=== PATIENT | male | born 1955 | race Caucasian/White ===

== ENCOUNTER 2017-07-31 09:07 | Outpatient (CLI) | payer OTHER ==
--- NOTE | 2017-07-31 11:10 | CT ---
CT CHEST WITHOUT CONTRAST: Comparison: 05-04-16, 11-03-16, 05-27-17; CT abdomen/pelvis 11-27-15 History: Left lung nodule. History of colon cancer. Technique: Multiple contiguous axial images were obtained in a CT of the chest without contrast. Cor onal reformats were performed. FINDINGS: There is an enlarging mass in the left lower lobe measuring 4.2 x 4.5 x 5.0 cm in size. There is an area of soft tissue density extending from the medial aspect of the mass towards the hilar region. T here is also an enlarging mass in the medial aspect of the right lower lobe measuring 3.2 x 3.9 x 3. 6 cm in size. Two new masses are seen in the right lower lobe. The largest measures 1.1 cm in size. No pleural effusion is present. The heart is normal in size. No obvious hilar or mediastinal lymphadenopathy are appreciated. Evalua tion is limited without IV contrast. The visualized subdiaphragmatic structures are unremarkable. Degenerative changes are seen in the sp ine. The patient has a tracheostomy. The chest wall soft tissues are unremarkable. IMPRESSION: Increasing size and number of pulmonary masses. This is evidence for metastatic disease. A PET CT co uld be performed to evaluate for a hypermetabolic activity of the masses. POS: JOHNATHAN
== END 2017-07-31 09:08 | disposition home or self-care (01) ==
LOC: CT 09:07
PROVIDERS: ATTEND Internal Medicine Critical Care Medicine
DX: R91.1 Solitary pulmonary nodule (principal); C78.02 Secondary malignant neoplasm of left lung
CPT/HCPCS: 71250

== ENCOUNTER 2017-08-13 10:15 | Outpatient (CLI) | payer OTHER ==
--- NOTE | 2017-08-13 17:11 | PET ---
PET CT FROM SKULL TO MID THIGH 08/13/17 INDICATION: History of colon cancer with multiple pulmonary nodules, concern for metastatic disease. RADIOPHARMACEUTICAL: 2.81 millicuries of F18 FDG IV. TECHNIQUE: Multiple PET CT images were obtained from the skull base to the mid thighs following IV administrati on of the radiopharmaceutical. CT images were obtained for attenuation correction purposes only. COMPARISON: Prior CT of the chest dated 07/31/[address] evaluation dated 12/09/12. FINDINGS: There is some mild increased FDG activity seen within the posterior aspects of the false vocal cord likely related to phonation. There is a tracheostomy tube in place. No definite hypermetabolic lymph adenopathy or soft tissue masses demonstrated. There is a hypermetabolic mass within the medial right lower lobe with a peak uptake of 19.5 and anurag n uptake of 15.9. There are small approximately 1 cm pulmonary nodules within the right lower lobe with misregistered mild uptake. One is seen measuring 1.3 cm on image 122 with a peak uptake of 2.9 and mean uptake of 1.79. An additional 1.1 cm nodule is seen within the superior segment of the righ t lower lobe with a peak uptake of 2.53 and a mean uptake of 1.71 An additional hypermetabolic mass seen within the left lower lobe measuring 4 cm with peak uptake of 12.98 and a mean uptake of 10.7. . There are smaller subcentimeter pulmonary nodules that likely have some mild associated hypermetab olic uptake within the posterior left lower lobe; however, these are below PET resolution threshold. No definite hypermetabolic mass or lymphadenopathy is evident within the abdomen or pelvis. There is an IVC filter in place. There is postsurgical change of a partial colectomy. The previously seen fl uid collection involving the anterior abdominal wall is no longer present. 5 cm nonhypermetabolic carmichael bcutaneous cyst overlying the lower midline back is stable likely reflecting a sebaceous cyst. No hypermetabolic skin or osseous lesion is evident. IMPRESSION: 1. Hypermetabolic pulmonary nodules and masses suspicious for metastatic disease. 2. No overt evidence of hypermetabolic metastatic disease within the abdomen or pelvis. 3. Mild area of increased hypermetabolic activity involving the vocal cords likely related to p honation. 4. Other chronic findings as above. POS: [facility]
== END 2017-08-13 10:16 | disposition home or self-care (01) ==
LOC: PET 10:15
PROVIDERS: ATTEND Internal Medicine Critical Care Medicine
DX: R91.1 Solitary pulmonary nodule (principal); R91.8 Other nonspecific abnormal finding of lung field; I82.409 Acute embolism and thrombosis of unspecified deep veins of unspecified lower extremity
CPT/HCPCS: 78815; A9552

== ENCOUNTER 2017-10-21 16:26 | Inpatient (IN) | payer OTHER ==
[2017-10-21 17:06] LABS: #Eosinphils 0.1 thou/uL (0.0-0.7); #Lymphocytes 1.1 thou/uL (1.20-3.40); #Neutrophils 11.2 thou/uL (1.40-6.50); %Basophils 0.2 % (0.0-1.0); %Eosinophils 0.7 % (0.0-10.0); %Lymphocytes 8.5 % (21.0-51.0); %Monocytes 7.4 % (0.0-10.0); %Neutrophils 83.2 % (42.0-75.0); Hemoglobin 12.9 g/dL (14.0-18.0); Mean Corpuscular HGB CONC 30.1 g/dL (32.0-36.0); Mean Corpuscular Hemoglobin 28.1 pg (27.0-31.0); Mean Corpuscular Volume 93.6 fl (80.0-94.0); Mean Platelet Volume 8.4 fL (7.4-10.4); Platelet Count 191 thou/uL (130-400); RBC Distribution Width 14.3 % (11.5-14.5); Red Blood Cell (RBC) Count 4.57 mill/uL (4.70-6.10); White Blood Cell (WBC) Count 13.4 thou/uL (4.8-10.8)
[2017-10-21] MEDS ORDERED: methylPREDNISolone Sod Succ/PF 125 MG/2 ML VIAL ONE (17:13)
[2017-10-21] MEDS ORDERED: Water For Inject, Bacteriostat 30 ML ONE (17:13)
[2017-10-21] MEDS ORDERED: Piperacillin/Tazobactam 4.5 GM in Sodium Chloride 0.9% 100 ML IVPB ONE (17:15)
[2017-10-21 17:29] LABS: ALT (SGPT) 14 U/L (8-55); AST (SGOT) 14 U/L (5-34); Albumin 3.9 g/dL (3.4-4.8); Alkaline Phosphatase 73 U/L (40-150); Anion Gap 13 mmol/L (10-20); BUN (Urea Nitrogen) 24 mg/dL (8.4-25.7); Bilirubin, Total 0.4 mg/dL (0.2-1.2); CK (CPK) 72 U/L (30-200); CKMB 5.7 ng/mL (0-6.6); Calc. Creatinine Clearance 0 mL/min (70-130); Calcium 9.4 mg/dL (7.8-10.44); Carbon Dioxide 36 mmol/L (23-31); Chloride 96 mmol/L (98-107); Estimated GFR-MDRD 48; Globulin 3.8 g/dL (2.4-3.5); Glucose 125 mg/dL (80-115); Potassium 4.9 mmol/L (3.5-5.1); Protein, Total 7.7 g/dL (5.8-8.1); Sodium 140 mmol/L (136-145); Troponin I 0.017 ng/mL (< 0.028)
[2017-10-21] MEDS ORDERED: Acetaminophen 325 MG TAB PO PRN (17:44)
[2017-10-21] MEDS ORDERED: Guaifenesin DM 100-10/5 ML UDCUP PO PRN (17:44)
[2017-10-21] MEDS ORDERED: Dextrose 5% in Water 1,000 ML IV PRN (17:44)
[2017-10-21] MEDS ORDERED: ALPRAZolam 0.25 MG TAB PO PRN (17:44)
[2017-10-21] MEDS ORDERED: Dextrose 50% Abboject 50 ML SYRINGE SLOW IVP PRN (17:44)
[2017-10-21] MEDS ORDERED: HumaLOG 300 UNITS/3 ML VIAL SC PRN (17:44)
--- NOTE | 2017-10-21 19:11 | RAD ---
RADIOGRAPH CHEST 1 VIEW: Date: 10-21-2017 Time: 4:47 p.m. HISTORY: 62-year-old male with productive cough and hypoxemia. COMPARISON: 05-28-17 FINDINGS: Distal tip of the tracheostomy tube is 9 cm superior to the diego, at the level of the clavicular he ads, similar to prior study. Magnification of the cardiac shadow due to body habitus. Diffuse bilater al mild, centrally dominant interstitial densities appear mildly worse than on the prior study. These could represent pulmonary interstitial edema. Poor visualization of the retrocardiac portion of the left lower lobe because of body habitus. There may or may not be a consolidation in that location. Th is appearance is similar to the previous radiograph. The mass in the left lower lobe demonstrated on the CT of 07-31-17 is difficult to appreciate, because of the surrounding increased left lower lobe d ensities. There is no pneumothorax. IMPRESSION: 1. Tracheostomy tube. 2. Questionable bilateral pulmonary interstitial edema. 3. Questionable left lower lobe pneumonia. TONG POS: JOHNATHAN
[2017-10-21 21:25] LABS: Troponin I 0.017 ng/mL (< 0.028)
--- NOTE | 2017-10-21 22:52 | HP ---
REASON FOR ADMISSION: COPD exacerbation, CHF exacerbation, acute respiratory failure with hypoxia. HISTORY OF PRESENTING ILLNESS: The patient gives history of having cough with expectoration of yellow sputum from last 2 days. He has been short of breath from last 1 week and has been progressively getting worse. He has felt hot at his correction. He states he has taken his flu shot for this year. The patient has chronic tracheostomy. He states he ambulates at the correction. He normally is on trach collar on a p.r.n. basis at the correction per patient. Per correction records, he is on 3 L nasal cannula. There was also an order for trach collar with oxygen on the ER records. On arrival, the patient's saturations dropped to 70% and had to be put on BiPAP. He is currently 91% on BiPAP. PAST MEDICAL AND SURGICAL HISTORY: Chronic respiratory failure with tracheostomy, COPD, obstructive sleep apnea on CPAP at night, left lower lobe lung mass with history of colon cancer with suspected metastasis, hypertension, dyslipidemia, history of PE, GERD, depression, prior bronchoscopy, prior history of PEG tube with removal, prior history of femoral artery laceration status post repair, history of exploratory laparotomy. PERSONAL HISTORY: The patient states he quit smoking 3 years ago. He is currently a resident of [facility]. Does not abuse alcohol or drugs. FAMILY HISTORY: There is no history of lung disease in the family. He is retired from the [employer]. The patient is apparently adopted. CURRENT MEDICATIONS: Per correction records, the patient is on aspirin 81 mg p.o. daily, budesonide nebulizer, Claritin 10 mg daily, Colace 100 mg twice daily, DuoNeb q.4 hourly, Flonase nasal spray, Klonopin 0.5 mg p.o. at bedtime, Lasix 40 mg p.o. twice daily, MiraLax 17 g 2 times daily, Mucinex 600 mg 4 times daily, Neurontin 100 mg 3 times daily, potassium chloride extended release 20 mEq p.o. daily, prednisone 10 mg daily, Spiriva inhaler 18 mcg daily , trazodone 50 mg p.o. at bedtime, Zantac 150 mg twice daily. REVIEW OF SYSTEMS: The following complete review of systems was negative, unless otherwise mentioned in the HPI or below: Constitutional: Weight loss or gain, ability to conduct usual activities. Skin: Rash, itching. Eyes: Double vision, pain. ENT/Mouth: Nose bleeding, neck stiffness, pain, tenderness. Cardiovascular: Palpitations, dyspnea on exertion, orthopnea. Respiratory: Shortness of breath, wheezing, cough, hemoptysis, fever or night sweats. Gastrointestinal: Poor appetite, abdominal pain, heartburn, nausea, vomiting, constipation, or diarrhea. Genitourinary: Urgency, frequency, dysuria, nocturia. Musculoskeletal: Pain, swelling. Neurologic/Psychiatric: Anxiety, depression. Allergy/Immunologic: Skin rash, bleeding tendency. PHYSICAL EXAMINATION: GENERAL: The patient is a 62-year-old male, who is currently on BiPAP. VITAL SIGNS: Blood pressure 134/78, pulse 120 per minute, respiratory rate 28 per minute, temperature 100.1 degrees Fahrenheit, saturating 91% on BiPAP and was 64% on room air. NECK: Supple, no elevated JVD. The patient has tracheostomy. HEENT: Extraocular muscles intact. Pupils reacting to light. Oral cavity, mucous membranes are dry. No exudates or congestion. CARDIOVASCULAR SYSTEM: S1, S2 heard. RESPIRATORY SYSTEM: Air entry 1+ bilateral. Scattered wheezes plus bilateral, rhonchi plus bilateral. There are rales plus in the infra-axillary area. ABDOMEN: Soft, bowel sounds heard. No tenderness, rigidity or guarding. EXTREMITIES: There is 1+ peripheral edema, no calf tenderness. VASCULAR SYSTEM: Peripheral pulses 1+ bilateral. No ischemic ulcerations or gangrene. CENTRAL NERVOUS SYSTEM: No gross focal deficit seen. The patient is lethargic , but oriented well. PSYCHIATRIC SYSTEM: The patient's mood is euthymic. No hallucinations or delusions. LABORATORY AND X-RAY FINDINGS: White count of 13, H and H 12 and 42, platelet count is 191 with 83% neutrophils, MCV is 93. Serum bicarbonate 36, BUN 24, creatinine 1.4, serum glucose 125. Liver enzymes are within normal limits. Albumin is 3.9. Troponin I 0.01. Influenza A and B antigens nasal swab is negative. Chest x-ray by my review shows mild pulmonary vascular congestion. CLINICAL IMPRESSION AND PLAN: Patient will be admitted to [facility] for acute on chronic respiratory failure, acute congestive heart failure exacerbation, acute obstructive pulmonary disease exacerbation. He is currently saturating 91%-92% on BiPAP and will continue the same. We will consult Pulmonology. The patient normally sees Dr. Bellamy. The patient is oxygen and steroid dependent. We will place him on Solu-Medrol 40 mg IV q.6 hourly, Levaquin, empiric antibiotics, and DuoNeb q.6 hourly. and q.4 hourly p.r.n. We will also place him on Lasix 40 mg IV q.12 hourly. We will continue some of his home medications including aspirin, Xanax, citalopram, Klonopin, trazodone, Flonase nasal spray, gabapentin , Mucinex as before. He will be on a small dose of Coreg 3.125 mg twice daily. We will obtain an echo with 2D Doppler for left ventricular function. We will continue to closely monitor him in [facility]. Please note I have discussed code status with him. The patient had an out of hospital DNR, which he signed in 01/2016, but has revoked it now. He states he wants to live. Please note the patient has a PET scan done in 07/2017, which shows likely hypermetabolic masses with metastatic disease in the lungs. He has history of colon cancer with prior surgery for the same. [facility]
[2017-10-21 23:53] LABS: Troponin I 0.014 ng/mL (< 0.028)
[2017-10-22] MEDS: Carvedilol 3.125 MG TAB PO SCH ×3 (00:56→20:29)
[2017-10-22] MEDS: Gabapentin 100 MG CAP PO SCH ×4 (00:56→20:30)
[2017-10-22] MEDS: clonazePAM 0.5 MG TAB PO SCH ×2 (00:56→20:29)
[2017-10-22] MEDS: Docusate 100 MG CAP PO SCH ×3 (00:56→20:29)
[2017-10-22] MEDS: guaiFENesin ER 600 MG TAB PO SCH ×6 (00:56→23:31)
[2017-10-22] MEDS: Famotidine 20 MG TAB PO SCH ×3 (00:56→20:29)
[2017-10-22] MEDS: Fluticasone Propionate Nasal Spray 16 gm Bottle NASAL SCH ×3 (00:56→20:29)
[2017-10-22] MEDS: traZODone HCl 50 MG TAB PO SCH ×2 (00:56→20:28)
[2017-10-22 01:15] VITALS: BMI 36.1
[2017-10-22 04:49] LABS: #Lymphocytes 0.7 thou/uL (1.20-3.40); #Monocytes 0.4 thou/uL (0.11-0.59); #Neutrophils 11.3 thou/uL (1.40-6.50); %Basophils 0.1 % (0.0-1.0); %Eosinophils 0.4 % (0.0-10.0); %Lymphocytes 5.6 % (21.0-51.0); %Monocytes 2.8 % (0.0-10.0); %Neutrophils 91.1 % (42.0-75.0); Hemoglobin 12.9 g/dL (14.0-18.0); Mean Corpuscular HGB CONC 31.2 g/dL (32.0-36.0); Mean Corpuscular Volume 92.7 fl (80.0-94.0); Platelet Count 177 thou/uL (130-400); RBC Distribution Width 14.4 % (11.5-14.5); Red Blood Cell (RBC) Count 4.44 mill/uL (4.70-6.10); White Blood Cell (WBC) Count 12.4 thou/uL (4.8-10.8)
[2017-10-22 04:55] LABS: Anion Gap 12 mmol/L (10-20); BUN (Urea Nitrogen) 24 mg/dL (8.4-25.7); Calc. Creatinine Clearance 152 mL/min (70-130); Calcium 9.3 mg/dL (7.8-10.44); Carbon Dioxide 36 mmol/L (23-31); Chloride 96 mmol/L (98-107); Estimated GFR-MDRD 83; Glucose 140 mg/dL (80-115); Potassium 4.6 mmol/L (3.5-5.1); Sodium 139 mmol/L (136-145)
[2017-10-22] MEDS: Furosemide 40 MG/4 ML VIAL SLOW IVP SCH ×2 (06:11→14:29)
[2017-10-22] MEDS: Enoxaparin Sodium 40 MG/0.4 ML SYRINGE SC SCH (08:03)
[2017-10-22] MEDS: Potassium Chloride 20 MEQ TAB PO SCH (08:03)
[2017-10-22] MEDS: Citalopram 20 MG TAB PO SCH (08:04)
--- NOTE | 2017-10-22 12:41 | PDOC.PN ---
- Subjective Encounter Start Date: 10/22/17 Encounter Start Time: 11:30 Subjective: is off bipap, on ventimask -: uses speaking valve to talk -: no sob or chest pain, feels better - Objective Resuscitation Status: Resuscitation Status FULL:Full Resuscitation MAR Reviewed: Yes Vital Signs & Weight: Vital Signs (12 hours) Temp Pulse Resp BP Pulse Ox 10/22/17 08:26 91 L 10/22/17 08:23 87 21 H 92 L 10/22/17 08:00 97.8 F 86 24 H 135/83 86 L 10/22/17 06:07 85 22 H 143/79 H 95 10/22/17 04:11 97.1 F L 90 24 H 149/73 H 97 10/22/17 02:10 97 24 H 124/76 91 L 10/22/17 01:45 104 H 24 H 83 L 10/22/17 00:47 87 L 10/22/17 00:45 100 24 H 85 L Weight Weight 283 lb 6 oz I&O: 10/21/17 10/22/17 10/23/17 06:59 06:59 06:59 Intake Total 270 Balance 270 Result Diagrams: 10/22/17 04:08 10/22/17 04:08 Additional Labs: Accuchecks 10/22/17 11:39 POC Glucose 129 H Phys Exam - Physical Examination HEENT: PERRLA, moist MMs Neck: no JVD trach+ Respiratory: no wheezing, no rales rhonchi+ Cardiovascular: RRR, no significant murmur Gastrointestinal: soft, non-tender, positive bowel sounds Musculoskeletal: no edema, pulses present Neurological: non-focal, moves all 4 limbs Psychiatric: A&O x 3 Dx/Plan (1) Acute on chronic respiratory failure with hypoxia and hypercapnia Code(s): J96.21 - ACUTE AND CHRONIC RESPIRATORY FAILURE WITH HYPOXIA; J96.22 - ACUTE AND CHRONIC RESPIRATORY FAILURE WITH HYPERCAPNIA Status: Resolved (2) COPD exacerbation Code(s): J44.1 - CHRONIC OBSTRUCTIVE PULMONARY DISEASE W (ACUTE) EXACERBATION Status: Acute Comment: improving.. (3) Anxiety and depression Code(s): F41.9 - ANXIETY DISORDER, UNSPECIFIED; F32.9 - MAJOR DEPRESSIVE DISORDER, SINGLE EPISODE, UNSPECIFIED Status: Chronic (4) Colon cancer metastasized to lung Code(s): C18.9 - MALIGNANT NEOPLASM OF COLON, UNSPECIFIED; C78.00 - SECONDARY MALIGNANT NEOPLASM OF UNSPECIFIED LUNG Status: Chronic (5) GERD (gastroesophageal reflux disease) Code(s): K21.9 - GASTRO-ESOPHAGEAL REFLUX DISEASE WITHOUT ESOPHAGITIS Status: Chronic Qualifiers: Esophagitis presence: esophagitis presence not specified (6) Hyperlipidemia Code(s): E78.5 - HYPERLIPIDEMIA, UNSPECIFIED Status: Chronic (7) Hypertension Code(s): I10 - ESSENTIAL (PRIMARY) HYPERTENSION Status: Chronic Qualifiers: Hypertension type: essential hypertension (8) CHIARA (obstructive sleep apnea) Code(s): G47.33 - OBSTRUCTIVE SLEEP APNEA (ADULT) (PEDIATRIC) Status: Chronic (9) Obesity (BMI 30-39.9) Code(s): E66.9 - OBESITY, UNSPECIFIED Status: Chronic (10) Tracheostomy in place Code(s): Z93.0 - TRACHEOSTOMY STATUS Status: Chronic - Plan is on ventimask -: steroids, nebs and empiric levaquin -: pulm consultation -: PT to amb as tolerated (he walks at snf) -: continue oral lasix home dose, tx to med floor * . Review of Systems - Medications/Allergies Allergies/Adverse Reactions: Allergies Allergy/AdvReac Type Severity Reaction Status Date / Time No Known Drug Allergies Allergy Verified 12/17/16 05:50 Medications: Current Medications Acetaminophen (Tylenol) 650 mg PO Q4H PRN PRN Reason: Headache/Fever or Pain Albuterol/Ipratropium (Duoneb) 3 ml NEB [id number] [facility] Last Admin: 10/22/17 08:23 Dose: 3 ml Alprazolam (Xanax) 0.25 mg PO Q4H PRN PRN Reason: Anxiety Aspirin (Aspirin Chewable) 81 mg PO DAILY [facility] Last Admin: 10/22/17 08:04 Dose: 81 mg Carvedilol (Coreg) 3.125 mg PO BID [facility] Last Admin: 10/22/17 08:04 Dose: 3.125 mg Citalopram Hydrobromide (Celexa) 20 mg PO DAILY [facility] Last Admin: 10/22/17 08:04 Dose: 20 mg Clonazepam (Klonopin) 0.5 mg PO HS [facility] Last Admin: 10/22/17 00:56 Dose: Not Given Dextrose/Water (Dextrose 50%) 25 gm SLOW IVP PRN PRN PRN Reason: Hypoglycemia Docusate Sodium (Colace) 100 mg PO BID [facility] Last Admin: 10/22/17 08:03 Dose: 100 mg Enoxaparin Sodium (Lovenox) 40 mg SC 0900 [facility] Last Admin: 10/22/17 08:03 Dose: 40 mg Famotidine (Pepcid) 20 mg PO BID [facility] Last Admin: 10/22/17 08:04 Dose: 20 mg Fluticasone Propionate (Flonase Nasal Adams) 1 gm NASAL BID [facility] Last Admin: 10/22/17 00:56 Dose: Not Given Furosemide (Lasix) 40 mg SLOW IVP 0600,1400 [facility] Last Admin: 10/22/17 06:11 Dose: 40 mg Gabapentin (Neurontin) 100 mg PO TID [facility] Last Admin: 10/22/17 08:04 Dose: 100 mg Glucagon (Glucagon) 1 mg IM PRN PRN PRN Reason: Hypoglycemia Guaifenesin (Mucinex) 600 mg PO Q6HR [facility] Last Admin: 10/22/17 11:52 Dose: 600 mg Guaifenesin/Dextromethorphan (Robitussin Dm) 15 ml PO Q4H PRN PRN Reason: Cough Dextrose/Water (D5w) 1,000 mls @ 0 mls/hr IV .Q0M PRN; As Directed PRN Reason: Hypoglycemia Levofloxacin 750 mg/ Device 150 mls @ 100 mls/hr IVPB Q24HR [facility] Last Admin: 10/22/17 00:56 Dose: Not Given Insulin Human Lispro (Humalog) 0 units SC .MILD SLIDING SCALE PRN PRN Reason: Mild Correctional Scale Methylprednisolone Sodium Succinate (Solu-Medrol) 40 mg IVP Q6HR [facility] Last Admin: 10/22/17 11:52 Dose: 40 mg Pneumococcal Polyvalent Vaccine (Pneumovax 23) 0.5 ml IM .ONCE ONE Stop: 10/23/17 09:01 Potassium Chloride (K-Dur) 20 meq PO DAILY [facility] Last Admin: 10/22/17 08:03 Dose: 20 meq Trazodone HCl (Desyrel) 50 mg PO HS [facility] Last Admin: 10/22/17 00:56 Dose: Not Given
[2017-10-22] MEDS ORDERED: predniSONE 20 MG TAB PO SCH (22:45)
[2017-10-23] MEDS: guaiFENesin ER 600 MG TAB PO SCH ×3 (06:06→17:04)
[2017-10-23] MEDS: Furosemide 40 MG/4 ML VIAL SLOW IVP SCH (06:12)
[2017-10-23] MEDS ORDERED: predniSONE 20 MG TAB PO SCH (08:00)
[2017-10-23] MEDS: Gabapentin 100 MG CAP PO SCH ×3 (08:40→20:42)
[2017-10-23] MEDS: Potassium Chloride 20 MEQ TAB PO SCH (08:40)
[2017-10-23] MEDS: Docusate 100 MG CAP PO SCH ×2 (08:40→20:41)
[2017-10-23] MEDS: Enoxaparin Sodium 40 MG/0.4 ML SYRINGE SC SCH (08:41)
[2017-10-23] MEDS: Carvedilol 3.125 MG TAB PO SCH ×2 (08:41→20:41)
[2017-10-23] MEDS: Citalopram 20 MG TAB PO SCH (08:41)
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
--- NOTE | 2017-10-23 08:43 | ADD-CON ---
DATE OF CONSULTATION: 10/23/2017 This is a 50 minute consult where 50% of the time was spent reviewing all records, reviewing chest ra diographs and conversing staff on the unit.
[2017-10-23] MEDS: Fluticasone Propionate Nasal Spray 16 gm Bottle NASAL SCH ×2 (10:00→20:38)
[2017-10-23] MEDS: Famotidine 20 MG TAB PO SCH ×2 (11:40→20:41)
--- NOTE | 2017-10-23 12:55 | PDOC.PN ---
- Subjective Encounter Start Date: 10/23/17 Encounter Start Time: 08:30 Subjective: on trach collar, no sob -: says he is amb in room - Objective Resuscitation Status: Resuscitation Status FULL:Full Resuscitation MAR Reviewed: Yes Vital Signs & Weight: Vital Signs (12 hours) Temp Pulse Pulse Pulse Resp BP BP 10/23/17 11:45 97.8 F 81 20 10/23/17 11:40 80 24 H 10/23/17 09:06 103 H 78 154/77 H 130/70 10/23/17 08:45 86 20 10/23/17 08:40 97.6 F 86 20 10/23/17 08:00 97.6 F 75 20 10/23/17 03:48 98.1 F 84 12 10/23/17 03:10 10/23/17 01:36 75 16 BP Pulse Ox Pulse Ox Pulse Ox 10/23/17 11:45 147/76 H 95 10/23/17 11:40 91 L 10/23/17 09:06 93 L 91 L 10/23/17 08:45 93 L 10/23/17 08:40 94 L 10/23/17 08:00 157/66 H 94 L 10/23/17 03:48 134/74 86 L 10/23/17 03:10 94 L 10/23/17 01:36 94 L Weight Weight 275 lb 4.8 oz I&O: 10/22/17 10/23/17 10/24/17 06:59 06:59 06:59 Intake Total 270 810 Output Total 500 Balance 270 310 Result Diagrams: 10/22/17 04:08 10/22/17 04:08 Additional Labs: Accuchecks 10/23/17 10/23/17 10/22/17 11:35 06:06 22:29 POC Glucose 117 H 111 H 130 H 10/22/17 16:55 POC Glucose 139 H Phys Exam - Physical Examination HEENT: PERRLA, moist MMs Neck: no JVD trach+ Respiratory: no wheezing, no rales rhonchi+ Cardiovascular: RRR, no significant murmur Gastrointestinal: soft, non-tender, positive bowel sounds Musculoskeletal: no edema, pulses present Neurological: non-focal, moves all 4 limbs Psychiatric: A&O x 3 Dx/Plan (1) Acute on chronic respiratory failure with hypoxia and hypercapnia Code(s): J96.21 - ACUTE AND CHRONIC RESPIRATORY FAILURE WITH HYPOXIA; J96.22 - ACUTE AND CHRONIC RESPIRATORY FAILURE WITH HYPERCAPNIA Status: Resolved (2) COPD exacerbation Code(s): J44.1 - CHRONIC OBSTRUCTIVE PULMONARY DISEASE W (ACUTE) EXACERBATION Status: Acute Comment: improving.. (3) Anxiety and depression Code(s): F41.9 - ANXIETY DISORDER, UNSPECIFIED; F32.9 - MAJOR DEPRESSIVE DISORDER, SINGLE EPISODE, UNSPECIFIED Status: Chronic (4) Colon cancer metastasized to lung Code(s): C18.9 - MALIGNANT NEOPLASM OF COLON, UNSPECIFIED; C78.00 - SECONDARY MALIGNANT NEOPLASM OF UNSPECIFIED LUNG Status: Chronic (5) GERD (gastroesophageal reflux disease) Code(s): K21.9 - GASTRO-ESOPHAGEAL REFLUX DISEASE WITHOUT ESOPHAGITIS Status: Chronic Qualifiers: Esophagitis presence: esophagitis presence not specified (6) Hyperlipidemia Code(s): E78.5 - HYPERLIPIDEMIA, UNSPECIFIED Status: Chronic (7) Hypertension Code(s): I10 - ESSENTIAL (PRIMARY) HYPERTENSION Status: Chronic Qualifiers: Hypertension type: essential hypertension (8) CHIARA (obstructive sleep apnea) Code(s): G47.33 - OBSTRUCTIVE SLEEP APNEA (ADULT) (PEDIATRIC) Status: Chronic (9) Obesity (BMI 30-39.9) Code(s): E66.9 - OBESITY, UNSPECIFIED Status: Chronic (10) Tracheostomy in place Code(s): Z93.0 - TRACHEOSTOMY STATUS Status: Chronic - Plan recovering well with copd flare up -: on steroids, nebs -: levaquin, is amb in room -: iv steroids -: echo shows good ef with diastolic dysfunction * . Review of Systems - Medications/Allergies Allergies/Adverse Reactions: Allergies Allergy/AdvReac Type Severity Reaction Status Date / Time No Known Drug Allergies Allergy Verified 12/17/16 05:50 Medications: Current Medications Acetaminophen (Tylenol) 650 mg PO Q4H PRN PRN Reason: Headache/Fever or Pain Albuterol/Ipratropium (Duoneb) 3 ml NEB [id number] [facility] Last Admin: 10/23/17 11:40 Dose: 3 ml Alprazolam (Xanax) 0.25 mg PO Q4H PRN PRN Reason: Anxiety Aspirin (Aspirin Chewable) 81 mg PO DAILY [facility] Last Admin: 10/23/17 08:40 Dose: 81 mg Carvedilol (Coreg) 3.125 mg PO BID [facility] Last Admin: 10/23/17 08:41 Dose: 3.125 mg Citalopram Hydrobromide (Celexa) 20 mg PO DAILY [facility] Last Admin: 10/23/17 08:41 Dose: 20 mg Clonazepam (Klonopin) 0.5 mg PO HS [facility] Last Admin: 10/22/17 20:29 Dose: 0.5 mg Dextrose/Water (Dextrose 50%) 25 gm SLOW IVP PRN PRN PRN Reason: Hypoglycemia Docusate Sodium (Colace) 100 mg PO BID [facility] Last Admin: 10/23/17 08:40 Dose: Not Given Enoxaparin Sodium (Lovenox) 40 mg SC 0900 [facility] Last Admin: 10/23/17 08:41 Dose: 40 mg Famotidine (Pepcid) 20 mg PO BID [facility] Last Admin: 10/23/17 11:40 Dose: Not Given Fluticasone Propionate (Flonase Nasal [place]) 1 gm NASAL BID [facility] Last Admin: 10/23/17 10:00 Dose: 1 spr Gabapentin (Neurontin) 100 mg PO TID [facility] Last Admin: 10/23/17 08:40 Dose: 100 mg Glucagon (Glucagon) 1 mg IM PRN PRN PRN Reason: Hypoglycemia Guaifenesin (Mucinex) 600 mg PO Q6HR [facility] Last Admin: 10/23/17 11:39 Dose: 600 mg Guaifenesin/Dextromethorphan (Robitussin Dm) 15 ml PO Q4H PRN PRN Reason: Cough Dextrose/Water (D5w) 1,000 mls @ 0 mls/hr IV .Q0M PRN; As Directed PRN Reason: Hypoglycemia Levofloxacin 750 mg/ Device 150 mls @ 100 mls/hr IVPB Q24HR [facility] Last Admin: 10/22/17 20:28 Dose: 150 mls Insulin Human Lispro (Humalog) 0 units SC .MILD SLIDING SCALE PRN PRN Reason: Mild Correctional Scale Methylprednisolone Sodium Succinate (Solu-Medrol) 40 mg IVP Q12HR [facility] Last Admin: 10/23/17 08:41 Dose: 40 mg Potassium Chloride (K-Dur) 20 meq PO DAILY [facility] Last Admin: 10/23/17 08:40 Dose: 20 meq Trazodone HCl (Desyrel) 50 mg PO [facility] Last Admin: 10/22/17 20:28 Dose: 50 mg
[2017-10-23] MEDS: clonazePAM 0.5 MG TAB PO SCH (20:41)
[2017-10-23] MEDS: traZODone HCl 50 MG TAB PO SCH (20:41)
[2017-10-24] MEDS: guaiFENesin ER 600 MG TAB PO SCH ×4 (00:25→18:36)
[2017-10-24] MEDS ORDERED: Sterile Water 10 ML ONE (08:21)
[2017-10-24] MEDS: Famotidine 20 MG TAB PO SCH ×2 (08:37→20:52)
[2017-10-24] MEDS: Carvedilol 3.125 MG TAB PO SCH ×2 (08:37→20:52)
[2017-10-24] MEDS: Gabapentin 100 MG CAP PO SCH ×3 (08:37→20:52)
[2017-10-24] MEDS: Citalopram 20 MG TAB PO SCH (08:37)
[2017-10-24] MEDS: Fluticasone Propionate Nasal Spray 16 gm Bottle NASAL SCH ×2 (08:37→20:52)
[2017-10-24] MEDS: Enoxaparin Sodium 40 MG/0.4 ML SYRINGE SC SCH (08:38)
[2017-10-24] MEDS: Docusate 100 MG CAP PO SCH ×2 (08:38→20:52)
--- NOTE | 2017-10-24 12:29 | PDOC.PN ---
- Subjective Encounter Start Date: 10/24/17 Encounter Start Time: 10:00 Subjective: has thick sputum with cough -: feels better -: eating well - Objective Resuscitation Status: Resuscitation Status FULL:Full Resuscitation MAR Reviewed: Yes Vital Signs & Weight: Vital Signs (12 hours) Temp Pulse Resp BP Pulse Ox 10/24/17 11:58 72 18 10/24/17 08:44 77 90 L 10/24/17 07:25 98.2 F 73 16 132/77 97 10/24/17 03:00 96 10/24/17 00:30 97.9 F 76 18 146/76 H 92 L Weight Weight 277 lb 8.11 oz I&O: 10/23/17 10/24/17 10/25/17 06:59 06:59 06:59 Intake Total 810 480 Output Total 500 1100 Balance 310 -620 Result Diagrams: 10/22/17 04:08 10/22/17 04:08 Additional Labs: Accuchecks 10/24/17 10/24/17 10/23/17 11:28 05:59 21:08 POC Glucose 98 98 89 10/23/17 17:31 POC Glucose 120 H Phys Exam - Physical Examination HEENT: PERRLA, moist MMs Neck: no JVD on trach collar Respiratory: no wheezing, no rales rhonchi+ Cardiovascular: RRR, no significant murmur Gastrointestinal: soft, non-tender, positive bowel sounds Musculoskeletal: no edema, pulses present Neurological: non-focal, moves all 4 limbs Psychiatric: A&O x 3 Dx/Plan (1) Acute on chronic respiratory failure with hypoxia and hypercapnia Code(s): J96.21 - ACUTE AND CHRONIC RESPIRATORY FAILURE WITH HYPOXIA; J96.22 - ACUTE AND CHRONIC RESPIRATORY FAILURE WITH HYPERCAPNIA Status: Resolved (2) COPD exacerbation Code(s): J44.1 - CHRONIC OBSTRUCTIVE PULMONARY DISEASE W (ACUTE) EXACERBATION Status: Acute Comment: improving.. (3) Anxiety and depression Code(s): F41.9 - ANXIETY DISORDER, UNSPECIFIED; F32.9 - MAJOR DEPRESSIVE DISORDER, SINGLE EPISODE, UNSPECIFIED Status: Chronic (4) Colon cancer metastasized to lung Code(s): C18.9 - MALIGNANT NEOPLASM OF COLON, UNSPECIFIED; C78.00 - SECONDARY MALIGNANT NEOPLASM OF UNSPECIFIED LUNG Status: Chronic (5) GERD (gastroesophageal reflux disease) Code(s): K21.9 - GASTRO-ESOPHAGEAL REFLUX DISEASE WITHOUT ESOPHAGITIS Status: Chronic Qualifiers: Esophagitis presence: esophagitis presence not specified (6) Hyperlipidemia Code(s): E78.5 - HYPERLIPIDEMIA, UNSPECIFIED Status: Chronic (7) Hypertension Code(s): I10 - ESSENTIAL (PRIMARY) HYPERTENSION Status: Chronic Qualifiers: Hypertension type: essential hypertension (8) CHIARA (obstructive sleep apnea) Code(s): G47.33 - OBSTRUCTIVE SLEEP APNEA (ADULT) (PEDIATRIC) Status: Chronic (9) Obesity (BMI 30-39.9) Code(s): E66.9 - OBESITY, UNSPECIFIED Status: Chronic (10) Tracheostomy in place Code(s): Z93.0 - TRACHEOSTOMY STATUS Status: Chronic - Plan on iv steroids, nebs -: improving well -: mobilize out of bed and amb as tolerated (he normally amb at snf) -: levaquin * . Review of Systems - Medications/Allergies Allergies/Adverse Reactions: Allergies Allergy/AdvReac Type Severity Reaction Status Date / Time No Known Drug Allergies Allergy Verified 12/17/16 05:50 Medications: Current Medications Acetaminophen (Tylenol) 650 mg PO Q4H PRN PRN Reason: Headache/Fever or Pain Albuterol/Ipratropium (Duoneb) 3 ml NEB [id number] [facility] Last Admin: 10/24/17 11:58 Dose: 3 ml Alprazolam (Xanax) 0.25 mg PO Q4H PRN PRN Reason: Anxiety Aspirin (Aspirin Chewable) 81 mg PO DAILY [facility] Last Admin: 10/24/17 08:37 Dose: 81 mg Carvedilol (Coreg) 3.125 mg PO BID [facility] Last Admin: 10/24/17 08:37 Dose: 3.125 mg Citalopram Hydrobromide (Celexa) 20 mg PO DAILY [facility] Last Admin: 10/24/17 08:37 Dose: 20 mg Clonazepam (Klonopin) 0.5 mg PO HS [facility] Last Admin: 10/23/17 20:41 Dose: 0.5 mg Dextrose/Water (Dextrose 50%) 25 gm SLOW IVP PRN PRN PRN Reason: Hypoglycemia Docusate Sodium (Colace) 100 mg PO BID [facility] Last Admin: 10/24/17 08:38 Dose: 100 mg Enoxaparin Sodium (Lovenox) 40 mg SC 0900 [facility] Last Admin: 10/24/17 08:38 Dose: 40 mg Famotidine (Pepcid) 20 mg PO BID [facility] Last Admin: 10/24/17 08:37 Dose: 20 mg Fluticasone Propionate (Flonase Nasal [place]) 1 gm NASAL BID [facility] Last Admin: 10/24/17 08:37 Dose: 1 spr Gabapentin (Neurontin) 100 mg PO TID [facility] Last Admin: 10/24/17 08:37 Dose: 100 mg Glucagon (Glucagon) 1 mg IM PRN PRN PRN Reason: Hypoglycemia Guaifenesin (Mucinex) 600 mg PO Q6HR [facility] Last Admin: 10/24/17 11:54 Dose: 600 mg Guaifenesin/Dextromethorphan (Robitussin Dm) 15 ml PO Q4H PRN PRN Reason: Cough Dextrose/Water (D5w) 1,000 mls @ 0 mls/hr IV .Q0M PRN; As Directed PRN Reason: Hypoglycemia Levofloxacin 750 mg/ Device 150 mls @ 100 mls/hr IVPB Q24HR [facility] Last Admin: 10/23/17 20:37 Dose: 150 mls Insulin Human Lispro (Humalog) 0 units SC .MILD SLIDING SCALE PRN PRN Reason: Mild Correctional Scale Methylprednisolone Sodium Succinate (Solu-Medrol) 40 mg IVP Q12HR [facility] Last Admin: 10/24/17 08:38 Dose: 40 mg Trazodone HCl (Desyrel) 50 mg PO HS [facility] Last Admin: 10/23/17 20:41 Dose: 50 mg
[2017-10-24] MEDS: traZODone HCl 50 MG TAB PO SCH (20:52)
[2017-10-24] MEDS: clonazePAM 0.5 MG TAB PO SCH (20:52)
--- NOTE | 2017-10-24 20:58 | PRG ---
DATE OF SERVICE: 10/24/2017 SUBJECTIVE: Mr. Haskins says he feels better. He does not feel he is ready to go back to the [facility] yet though. OBJECTIVE: VITAL SIGNS: He is afebrile, heart rate 78, respiratory rate 16, oximetry is 92 on trach collar, blo od pressure 129/78. LUNGS: Remarkable for coarse wheezes. These are improved. CARDIOVASCULAR: Regular rhythm. ABDOMEN: Soft. LABORATORY DATA: There is no new lab other than blood glucoses. IMPRESSION: 1. Acute on chronic respiratory failure. 2. Chronic obstructive pulmonary disease, which is moderate by PFTs. 3. Retained secretions. 4. Metastatic colon cancer. 5. Status post tracheostomy for obstructive sleep apnea with erythrocytosis and chronic phlebotomies . 6. Obesity. 7. History of resected colon cancer. 8. History of an inferior vena cava filter placement. PLAN: Continue current care. He gets in my opinion marginal care at the intermediate, so we should make sure that he has recovered adequately to go back to the intermediate. He requested treatment fo r several days for his bronchitis and chronic obstructive pulmonary disease exacerbation. He tells m e he was told that he did not need any different medication. I have encouraged him to seek residency at a different intermediate, but he has limited resources to do this.
[2017-10-25] MEDS: guaiFENesin ER 600 MG TAB PO SCH ×4 (00:50→18:01)
[2017-10-25] MEDS: Enoxaparin Sodium 40 MG/0.4 ML SYRINGE SC SCH (07:59)
[2017-10-25] MEDS: predniSONE 20 MG TAB PO SCH (07:59)
[2017-10-25] MEDS: Citalopram 20 MG TAB PO SCH (08:00)
[2017-10-25] MEDS: Docusate 100 MG CAP PO SCH ×2 (08:00→20:41)
[2017-10-25] MEDS: Famotidine 20 MG TAB PO SCH ×2 (08:00→20:41)
[2017-10-25] MEDS: Carvedilol 3.125 MG TAB PO SCH ×2 (08:00→20:41)
[2017-10-25] MEDS: Gabapentin 100 MG CAP PO SCH ×3 (08:00→20:41)
[2017-10-25] MEDS: Fluticasone Propionate Nasal Spray 16 gm Bottle NASAL SCH ×2 (08:00→20:42)
[2017-10-25 09:24] LABS: #Eosinphils 0.2 thou/uL (0.0-0.7); #Lymphocytes 1.2 thou/uL (1.20-3.40); #Neutrophils 5.8 thou/uL (1.40-6.50); %Basophils 0.2 % (0.0-1.0); %Eosinophils 2.1 % (0.0-10.0); %Lymphocytes 14.6 % (21.0-51.0); %Monocytes 12.4 % (0.0-10.0); %Neutrophils 70.7 % (42.0-75.0); Hemoglobin 12.7 g/dL (14.0-18.0); Mean Corpuscular HGB CONC 30.2 g/dL (32.0-36.0); Mean Corpuscular Hemoglobin 28.2 pg (27.0-31.0); Mean Corpuscular Volume 93.4 fl (80.0-94.0); Mean Platelet Volume 8.7 fL (7.4-10.4); Platelet Count 177 thou/uL (130-400); RBC Distribution Width 14.5 % (11.5-14.5); Red Blood Cell (RBC) Count 4.49 mill/uL (4.70-6.10); White Blood Cell (WBC) Count 8.2 thou/uL (4.8-10.8)
[2017-10-25 09:47] LABS: ALT (SGPT) 11 U/L (8-55); AST (SGOT) 13 U/L (5-34); Albumin 3.2 g/dL (3.4-4.8); Alkaline Phosphatase 54 U/L (40-150); Anion Gap 10 mmol/L (10-20); BUN (Urea Nitrogen) 23 mg/dL (8.4-25.7); Bilirubin, Total 0.3 mg/dL (0.2-1.2); Calc. Creatinine Clearance 0 mL/min (70-130); Calcium 8.8 mg/dL (7.8-10.44); Carbon Dioxide 37 mmol/L (23-31); Chloride 98 mmol/L (98-107); Estimated GFR-MDRD Greater than 90; Globulin 2.9 g/dL (2.4-3.5); Glucose 87 mg/dL (80-115); Protein, Total 6.1 g/dL (5.8-8.1); Sodium 141 mmol/L (136-145)
--- NOTE | 2017-10-25 12:31 | PDOC.PN ---
- Subjective Encounter Start Date: 10/25/17 Encounter Start Time: 10:10 Subjective: breathing better, is amb in room -: eating well -: expectoration is better now - Objective Resuscitation Status: Resuscitation Status FULL:Full Resuscitation MAR Reviewed: Yes Vital Signs & Weight: Vital Signs (12 hours) Temp Pulse Resp BP Pulse Ox 10/25/17 11:18 98.2 F 75 18 114/71 90 L 10/25/17 10:17 93 L 10/25/17 10:14 70 12 10/25/17 08:00 97.6 F 70 12 10/25/17 04:31 97.9 F 70 20 104/62 93 L 10/25/17 03:11 16 94 L Weight Weight 4.437 oz I&O: 10/24/17 10/25/17 10/26/17 06:59 06:59 06:59 Intake Total 480 500 Output Total 1100 2500 Balance -620 -1999 Result Diagrams: 10/25/17 08:58 10/25/17 08:58 Additional Labs: Accuchecks 10/25/17 10/25/17 10/24/17 11:20 05:22 19:49 POC Glucose 106 86 101 10/24/17 16:16 POC Glucose 100 Phys Exam - Physical Examination HEENT: PERRLA, moist MMs Neck: no JVD trach collar Respiratory: no wheezing, no rales Cardiovascular: RRR, no significant murmur Gastrointestinal: soft, non-tender, positive bowel sounds Musculoskeletal: no edema, pulses present Neurological: non-focal, moves all 4 limbs Psychiatric: A&O x 3 Dx/Plan (1) Acute on chronic respiratory failure with hypoxia and hypercapnia Code(s): J96.21 - ACUTE AND CHRONIC RESPIRATORY FAILURE WITH HYPOXIA; J96.22 - ACUTE AND CHRONIC RESPIRATORY FAILURE WITH HYPERCAPNIA Status: Resolved (2) COPD exacerbation Code(s): J44.1 - CHRONIC OBSTRUCTIVE PULMONARY DISEASE W (ACUTE) EXACERBATION Status: Acute Comment: improving.. (3) Anxiety and depression Code(s): F41.9 - ANXIETY DISORDER, UNSPECIFIED; F32.9 - MAJOR DEPRESSIVE DISORDER, SINGLE EPISODE, UNSPECIFIED Status: Chronic (4) Colon cancer metastasized to lung Code(s): C18.9 - MALIGNANT NEOPLASM OF COLON, UNSPECIFIED; C78.00 - SECONDARY MALIGNANT NEOPLASM OF UNSPECIFIED LUNG Status: Chronic (5) GERD (gastroesophageal reflux disease) Code(s): K21.9 - GASTRO-ESOPHAGEAL REFLUX DISEASE WITHOUT ESOPHAGITIS Status: Chronic Qualifiers: Esophagitis presence: esophagitis presence not specified (6) Hyperlipidemia Code(s): E78.5 - HYPERLIPIDEMIA, UNSPECIFIED Status: Chronic (7) Hypertension Code(s): I10 - ESSENTIAL (PRIMARY) HYPERTENSION Status: Chronic Qualifiers: Hypertension type: essential hypertension (8) CHIARA (obstructive sleep apnea) Code(s): G47.33 - OBSTRUCTIVE SLEEP APNEA (ADULT) (PEDIATRIC) Status: Chronic (9) Obesity (BMI 30-39.9) Code(s): E66.9 - OBESITY, UNSPECIFIED Status: Chronic (10) Tracheostomy in place Code(s): Z93.0 - TRACHEOSTOMY STATUS Status: Chronic - Plan slowly recovering, is able to bring up sputum better now -: on prednisone, levaquin, nebs -: to mobilize more as tolerated -: likely dc plan on saturday to * . Review of Systems - Medications/Allergies Allergies/Adverse Reactions: Allergies Allergy/AdvReac Type Severity Reaction Status Date / Time No Known Drug Allergies Allergy Verified 12/17/16 05:50 Medications: Current Medications Acetaminophen (Tylenol) 650 mg PO Q4H PRN PRN Reason: Headache/Fever or Pain Albuterol/Ipratropium (Duoneb) 3 ml NEB [id number] [facility] Last Admin: 10/25/17 10:14 Dose: 3 ml Alprazolam (Xanax) 0.25 mg PO Q4H PRN PRN Reason: Anxiety Aspirin (Aspirin Chewable) 81 mg PO DAILY [facility] Last Admin: 10/25/17 08:00 Dose: 81 mg Carvedilol (Coreg) 3.125 mg PO BID [facility] Last Admin: 10/25/17 08:00 Dose: 3.125 mg Citalopram Hydrobromide (Celexa) 20 mg PO DAILY [facility] Last Admin: 10/25/17 08:00 Dose: 20 mg Clonazepam (Klonopin) 0.5 mg PO HS [facility] Last Admin: 10/24/17 20:52 Dose: 0.5 mg Dextrose/Water (Dextrose 50%) 25 gm SLOW IVP PRN PRN PRN Reason: Hypoglycemia Docusate Sodium (Colace) 100 mg PO BID [facility] Last Admin: 10/25/17 08:00 Dose: 100 mg Enoxaparin Sodium (Lovenox) 40 mg SC 0900 [facility] Last Admin: 10/25/17 07:59 Dose: 40 mg Famotidine (Pepcid) 20 mg PO BID [facility] Last Admin: 10/25/17 08:00 Dose: 20 mg Fluticasone Propionate (Flonase Nasal [place]) 1 gm NASAL BID [facility] Last Admin: 10/25/17 08:00 Dose: 1 spr Gabapentin (Neurontin) 100 mg PO TID [facility] Last Admin: 10/25/17 08:00 Dose: 100 mg Glucagon (Glucagon) 1 mg IM PRN PRN PRN Reason: Hypoglycemia Guaifenesin (Mucinex) 600 mg PO Q6HR [facility] Last Admin: 10/25/17 11:14 Dose: 600 mg Guaifenesin/Dextromethorphan (Robitussin Dm) 15 ml PO Q4H PRN PRN Reason: Cough Dextrose/Water (D5w) 1,000 mls @ 0 mls/hr IV .Q0M PRN; As Directed PRN Reason: Hypoglycemia Insulin Human Lispro (Humalog) 0 units SC .MILD SLIDING SCALE PRN PRN Reason: Mild Correctional Scale Levofloxacin (Levaquin) 500 mg PO 0600 [facility] Last Admin: 10/25/17 05:56 Dose: 500 mg Prednisone (Prednisone) 40 mg PO QAM-WM [facility] Last Admin: 10/25/17 07:59 Dose: 40 mg Trazodone HCl (Desyrel) 50 mg PO HS [facility] Last Admin: 10/24/17 20:52 Dose: 50 mg
--- NOTE | 2017-10-25 13:51 | PRG ---
DATE OF SERVICE: 10/25/2017 SUBJECTIVE: Ms. Haskins did well overnight. He says he is feeling a little bit better. He still gill s not feel like he is ready to go home. PHYSICAL EXAMINATION: VITAL SIGNS: He is afebrile, heart rate 70, respiratory rate is 12, oximetry is 93% on trach collar, and blood pressure 104/62. LUNGS: He still has diffuse wheezes. HEART: Regular rhythm. ABDOMEN: Soft. IMPRESSION: 1. Chronic obstructive pulmonary disease exacerbation. 2. Status post tracheostomy for sleep apnea with erythrocytosis. 3. Metastatic colon cancer with multiple pulmonary nodules. RECOMMENDATIONS: His radiographic findings of the left base were interpreted as pneumonia or in my o morris, the enlarging mass that he has decided he does not want treatment of. Continue with current care. Transfer back to senior living, possibly Saturday or Saturday depending on how he is feeling. He i s a pretty good parameter is to whether or not he is ready for discharge, so we will just trust his f eeling about being discharged.
[2017-10-25] MEDS: traZODone HCl 50 MG TAB PO SCH (20:41)
[2017-10-25] MEDS: clonazePAM 0.5 MG TAB PO SCH (20:41)
[2017-10-26] MEDS: guaiFENesin ER 600 MG TAB PO SCH ×5 (01:08→22:50)
[2017-10-26] MEDS: Enoxaparin Sodium 40 MG/0.4 ML SYRINGE SC SCH (08:46)
[2017-10-26] MEDS: Carvedilol 3.125 MG TAB PO SCH ×2 (08:46→20:58)
[2017-10-26] MEDS: Docusate 100 MG CAP PO SCH ×2 (08:46→20:58)
[2017-10-26] MEDS: predniSONE 20 MG TAB PO SCH (08:46)
[2017-10-26] MEDS: Gabapentin 100 MG CAP PO SCH ×3 (08:46→20:58)
[2017-10-26] MEDS: Citalopram 20 MG TAB PO SCH (08:46)
[2017-10-26] MEDS: Famotidine 20 MG TAB PO SCH ×2 (08:46→20:58)
[2017-10-26] MEDS: Fluticasone Propionate Nasal Spray 16 gm Bottle NASAL SCH ×2 (13:10→20:58)
--- NOTE | 2017-10-26 15:36 | EKG ---
Test Reason : Blood Pressure : / mmHG Vent. Rate : 116 BPM Atrial Rate : 116 BPM P-R Int : 158 ms QRS Dur : 096 ms QT Int : 326 ms P-R-T Axes : 055 108 027 degrees QTc Int : 453 ms Sinus tachycardia Inferior-posterior infarct , age undetermined Abnormal ECG Confirmed by RADHA KHAN, JARED ([id number]), offline editor DARSHANA LOMELI ([id number]) on 10/26/2017 3:35:45 PM Referred By: Confirmed By:JARED GARCIA MD
--- NOTE | 2017-10-26 16:10 | PDOC.PN ---
- Subjective Encounter Start Date: 10/26/17 Encounter Start Time: 16:08 Mr. Haskins was seen today in follow-up for acute on chronic respiratory failure - He is feeling a little better, but still is having a lot of mucus secretions. - Objective Resuscitation Status: Resuscitation Status FULL:Full Resuscitation MAR Reviewed: Yes Vital Signs & Weight: Vital Signs (12 hours) Temp Pulse Resp BP Pulse Ox 10/26/17 15:36 83 16 10/26/17 12:33 98.2 F 78 28 H 145/85 H 91 L 10/26/17 11:40 86 20 10/26/17 09:03 98.4 F 137/72 10/26/17 08:49 86 16 10/26/17 08:00 98.4 F 75 16 Weight Weight 4.437 oz I&O: 10/25/17 10/26/17 10/27/17 06:59 06:59 06:59 Intake Total 500 550 Output Total 2500 400 Balance -2000 150 Result Diagrams: 10/25/17 08:58 10/25/17 08:58 Additional Labs: Accuchecks 10/26/17 10/26/17 10/25/17 11:34 05:40 19:45 POC Glucose 104 90 156 H Phys Exam - Physical Examination HEENT: PERRLA + wheezing bilaterally, mild, no rales Cardiovascular: RRR, no significant murmur Gastrointestinal: soft, non-tender, positive bowel sounds Musculoskeletal: no edema Dx/Plan (1) COPD exacerbation Code(s): J44.1 - CHRONIC OBSTRUCTIVE PULMONARY DISEASE W (ACUTE) EXACERBATION Status: Acute Comment: improving.. (2) Colon cancer metastasized to lung Code(s): C18.9 - MALIGNANT NEOPLASM OF COLON, UNSPECIFIED; C78.00 - SECONDARY MALIGNANT NEOPLASM OF UNSPECIFIED LUNG Status: Chronic (3) History of pulmonary embolism Code(s): Z86.711 - PERSONAL HISTORY OF PULMONARY EMBOLISM Status: Chronic (4) Hypertension Code(s): I10 - ESSENTIAL (PRIMARY) HYPERTENSION Status: Chronic Qualifiers: Hypertension type: essential hypertension (5) CHIARA (obstructive sleep apnea) Code(s): G47.33 - OBSTRUCTIVE SLEEP APNEA (ADULT) (PEDIATRIC) Status: Chronic (6) Tracheostomy in place Code(s): Z93.0 - TRACHEOSTOMY STATUS Status: Chronic (7) Acute on chronic respiratory failure with hypoxia and hypercapnia Code(s): J96.21 - ACUTE AND CHRONIC RESPIRATORY FAILURE WITH HYPOXIA; J96.22 - ACUTE AND CHRONIC RESPIRATORY FAILURE WITH HYPERCAPNIA Status: Resolved - Plan * Acute on chronic respiratory failure- resolving- he continues to require quite a bit of suctioning via the trach * Continue to monitor in the hospital * Continue Levaquin and Prednisone, and Duonebs * HTN- blood pressure is stable * Lung cancer, metastatic- not contributing to his current symptoms .
--- NOTE | 2017-10-26 20:25 | PRG ---
DATE OF SERVICE: 10/26/2017 SERVICE: Pulmonary Medicine. INTERVAL HISTORY: The patient seems to be doing a little bit better from a breathing standpoint. He currently denies any fevers, chills, nausea, vomiting, or diarrhea. Otherwise, things are moving in the right direction. PHYSICAL EXAMINATION: VITAL SIGNS: Afebrile, pulse 68, blood pressure 123/75, respirations 20, saturation 91% on 35% FiO2. GENERAL: Patient is awake, alert, no apparent distress. LUNGS: Decreased air entry. Dependent crackles, minimal. HEART: Normal rate, regular. ABDOMEN: Soft, nontender, nondistended, bowel sounds positive. MUSCULOSKELETAL: No cyanosis or clubbing. There is 1+ pitting in the bilateral lower extremities. NEUROLOGIC: Grossly nonfocal. LABORATORY DATA: WBC 8.2, hemoglobin 12.7, platelets 177,000. His metabolic profile is unremarkable as of yesterday. Influenza A and B are unremarkable. Blood culture x2 and respiratory cultures neg ative. ASSESSMENT: 1. Acute on chronic hypoxic respiratory failure. 2. Chronic obstructive pulmonary disease exacerbation. 3. Abdominal distention. PLAN: I am going to provide the patient 1 time dose of Lasix tomorrow morning. Outside of this, we will continue supportive care including antibiotics, nebulized medications, and steroids. Pulmonary Critical Care will continue to follow while the patient remains inhouse, but he is fast approaching t hat point where he could probably be considered for transition back out of the hospital.
[2017-10-26] MEDS: traZODone HCl 50 MG TAB PO SCH (20:58)
[2017-10-26] MEDS: clonazePAM 0.5 MG TAB PO SCH (20:58)
[2017-10-27] MEDS: guaiFENesin ER 600 MG TAB PO SCH ×3 (06:21→17:03)
[2017-10-27] MEDS ORDERED: Furosemide 40 MG/4 ML VIAL SLOW IVP SCH (08:00)
[2017-10-27] MEDS: predniSONE 20 MG TAB PO SCH (08:40)
[2017-10-27] MEDS: Citalopram 20 MG TAB PO SCH (08:41)
[2017-10-27] MEDS: Enoxaparin Sodium 40 MG/0.4 ML SYRINGE SC SCH (08:41)
[2017-10-27] MEDS: Docusate 100 MG CAP PO SCH ×2 (08:41→21:11)
[2017-10-27] MEDS: Carvedilol 3.125 MG TAB PO SCH ×2 (08:41→21:10)
[2017-10-27] MEDS: Fluticasone Propionate Nasal Spray 16 gm Bottle NASAL SCH ×2 (08:42→21:11)
[2017-10-27] MEDS: Famotidine 20 MG TAB PO SCH ×2 (08:42→21:11)
[2017-10-27] MEDS: Gabapentin 100 MG CAP PO SCH ×3 (08:42→21:11)
--- NOTE | 2017-10-27 13:41 | PDOC.PN ---
- Subjective Encounter Start Date: 10/27/17 Encounter Start Time: 13:39 Mr. Haskins was seen today in follow-up. He says he is beginning to feel closer to his baseline. He has less cough and congestion. - Objective Resuscitation Status: Resuscitation Status FULL:Full Resuscitation MAR Reviewed: Yes Vital Signs & Weight: Vital Signs (12 hours) Temp Pulse Resp BP Pulse Ox 10/27/17 12:01 76 16 10/27/17 12:00 98.2 F 77 19 119/67 90 L 10/27/17 08:00 98.1 F 74 17 127/76 92 L 10/27/17 07:15 98.1 F 74 17 92 L 10/27/17 04:00 98.1 F 69 18 108/68 90 L Weight Weight 4.409 oz I&O: 10/26/17 10/27/17 10/28/17 06:59 06:59 06:59 Intake Total 550 900 Output Total 400 3200 Balance 150 -2300 Result Diagrams: 10/25/17 08:58 10/25/17 08:58 Additional Labs: Accuchecks 10/27/17 10/27/17 10/26/17 11:06 06:22 20:50 POC Glucose 116 H 85 100 10/26/17 16:37 POC Glucose 122 H Phys Exam - Physical Examination HEENT: PERRLA Respiratory: wheezing present + bilateral wheezing and some rales at the bases Cardiovascular: RRR, no significant murmur, no rub Gastrointestinal: soft, non-tender, positive bowel sounds Musculoskeletal: no edema + mild erythema Dx/Plan (1) COPD exacerbation Code(s): J44.1 - CHRONIC OBSTRUCTIVE PULMONARY DISEASE W (ACUTE) EXACERBATION Status: Acute Comment: improving.. (2) Colon cancer metastasized to lung Code(s): C18.9 - MALIGNANT NEOPLASM OF COLON, UNSPECIFIED; C78.00 - SECONDARY MALIGNANT NEOPLASM OF UNSPECIFIED LUNG Status: Chronic (3) History of pulmonary embolism Code(s): Z86.711 - PERSONAL HISTORY OF PULMONARY EMBOLISM Status: Chronic (4) Hypertension Code(s): I10 - ESSENTIAL (PRIMARY) HYPERTENSION Status: Chronic Qualifiers: Hypertension type: essential hypertension (5) CHIARA (obstructive sleep apnea) Code(s): G47.33 - OBSTRUCTIVE SLEEP APNEA (ADULT) (PEDIATRIC) Status: Chronic (6) Tracheostomy in place Code(s): Z93.0 - TRACHEOSTOMY STATUS Status: Chronic (7) Acute on chronic respiratory failure with hypoxia and hypercapnia Code(s): J96.21 - ACUTE AND CHRONIC RESPIRATORY FAILURE WITH HYPOXIA; J96.22 - ACUTE AND CHRONIC RESPIRATORY FAILURE WITH HYPERCAPNIA Status: Resolved - Plan * Acute on chronic respiratory failure- slowly improving * HTN- blood pressure is controlled * Lung Mass- suspected metastatic lesion- it's documented that he declined treatment- currently not affecting his care.
[2017-10-27] MEDS: Acetaminophen/Codeine 30-300mg Tablet PO PRN ×2 (16:43→21:15)
[2017-10-27] MEDS ORDERED: Acetaminophen/Codeine 30-300mg Tablet PO SCH (21:00)
[2017-10-27] MEDS: clonazePAM 0.5 MG TAB PO SCH (21:10)
[2017-10-27] MEDS: traZODone HCl 50 MG TAB PO SCH (21:11)
--- NOTE | 2017-10-27 22:22 | PRG ---
DATE OF SERVICE: 10/27/2017 SERVICE: Pulmonary Medicine. INTERVAL HISTORY: The patient is doing really well from a cardiovascular and respiratory standpoint. He indicates his breathing is much improved. His lower extremity and upper extremity swelling are better. Otherwise, there has been no interval change to his condition. He is requesting a second Ty lenol #3 to help him with his back discomfort, so that he can sleep. He typically takes 2 when he is at his nursing facility. PHYSICAL EXAMINATION: VITAL SIGNS: Afebrile, pulse 80, blood pressure 134/78, respirations 19, saturation 90% on 35% FiO2. GENERAL: The patient has a tracheostomy. He is in no apparent distress. HEART: Normal rate, regular. ABDOMEN: Soft, nontender, nondistended. Bowel sounds positive. LUNGS: Better air entry. There are fewer crackles and lesser prolonged expiratory phase. There is some expiratory wheezing present. MUSCULOSKELETAL: No cyanosis or clubbing. There is less pitting in the bilateral lower extremities. Currently, trace to 1+. GENITOURINARY: No Walker. NEUROLOGIC: Grossly nonfocal. ASSESSMENT: 1. Acute on chronic hypoxic respiratory failure. 2. Chronic obstructive pulmonary disease with acute exacerbation. 3. Abdominal distention without any dysfunction. PLAN: I will give 1 more dose of Lasix tomorrow morning. We will continue our supportive care inclu ding antibiotics, nebulized medications and steroids. Pulmonary will continue to follow while the pa bismark remains inhouse but were fast approaching that point where he has returned to his usual state o f health and can be transitioned back to the nursing facility. He will absolutely require humidified air through his tracheostomy, and Lasix that should be administered on a regular basis. If we can p rovide him with a p.r.n. dose of Lasix in the afternoon in addition to a scheduled dose of Lasix, thi s may be beneficial.
[2017-10-28] MEDS: guaiFENesin ER 600 MG TAB PO SCH ×4 (00:35→17:39)
[2017-10-28 06:07] LABS: Anion Gap 12 mmol/L (10-20); BUN (Urea Nitrogen) 17 mg/dL (8.4-25.7); Calc. Creatinine Clearance 169 mL/min (70-130); Calcium 9.2 mg/dL (7.8-10.44); Carbon Dioxide 35 mmol/L (23-31); Chloride 98 mmol/L (98-107); Estimated GFR-MDRD Greater than 90; Glucose 83 mg/dL (80-115); Magnesium 2.4 mg/dL (1.6-2.6); Potassium 3.9 mmol/L (3.5-5.1); Sodium 141 mmol/L (136-145)
[2017-10-28] MEDS: Fluticasone Propionate Nasal Spray 16 gm Bottle NASAL SCH ×2 (08:45→21:59)
[2017-10-28] MEDS: Docusate 100 MG CAP PO SCH ×2 (08:45→21:58)
[2017-10-28] MEDS: Citalopram 20 MG TAB PO SCH (08:45)
[2017-10-28] MEDS: Famotidine 20 MG TAB PO SCH ×2 (08:45→21:58)
[2017-10-28] MEDS: Gabapentin 100 MG CAP PO SCH ×3 (08:45→21:59)
[2017-10-28] MEDS: Carvedilol 3.125 MG TAB PO SCH ×2 (08:46→21:58)
[2017-10-28] MEDS: predniSONE 20 MG TAB PO SCH (08:46)
[2017-10-28] MEDS: Enoxaparin Sodium 40 MG/0.4 ML SYRINGE SC SCH (08:46)
[2017-10-28] MEDS ORDERED: Furosemide 40 MG/4 ML VIAL SLOW IVP SCH (09:00)
[2017-10-28] MEDS ORDERED: Furosemide 40 MG TAB PO SCH (11:45)
--- NOTE | 2017-10-28 16:30 | PDOC.PN ---
- Subjective Encounter Start Date: 10/28/17 Encounter Start Time: 16:28 Mr. Haskins was seen today in follow-up. He does not have any complaints. - Objective Resuscitation Status: Resuscitation Status FULL:Full Resuscitation MAR Reviewed: Yes Vital Signs & Weight: Vital Signs (12 hours) Temp Pulse Resp BP Pulse Ox 10/28/17 16:00 98.7 F 75 16 99/61 84 L 10/28/17 11:31 98.0 F 86 16 122/78 87 L 10/28/17 11:10 72 16 10/28/17 08:30 98.0 F 65 16 93 L 10/28/17 07:54 98.0 F 65 16 99/55 L 93 L 10/28/17 07:34 70 14 Weight Weight 271 lb 8 oz I&O: 10/27/17 10/28/17 10/29/17 06:59 06:59 06:59 Intake Total 900 1000 Output Total 3200 2700 Balance -2300 -1700 Result Diagrams: 10/25/17 08:58 10/28/17 04:46 Additional Labs: Accuchecks 10/28/17 10/28/17 10/28/17 15:39 10:35 05:42 POC Glucose 127 H 128 H 77 10/27/17 10/27/17 19:33 17:02 POC Glucose 116 H 143 H Phys Exam - Physical Examination HEENT: PERRLA + occasional wheeze, no rhonchi, fine rales at the bases Cardiovascular: RRR, no significant murmur, no rub Gastrointestinal: soft, non-tender, positive bowel sounds Musculoskeletal: no edema Dx/Plan (1) COPD exacerbation Code(s): J44.1 - CHRONIC OBSTRUCTIVE PULMONARY DISEASE W (ACUTE) EXACERBATION Status: Acute Comment: improving.. (2) Colon cancer metastasized to lung Code(s): C18.9 - MALIGNANT NEOPLASM OF COLON, UNSPECIFIED; C78.00 - SECONDARY MALIGNANT NEOPLASM OF UNSPECIFIED LUNG Status: Chronic (3) History of pulmonary embolism Code(s): Z86.711 - PERSONAL HISTORY OF PULMONARY EMBOLISM Status: Chronic (4) Hypertension Code(s): I10 - ESSENTIAL (PRIMARY) HYPERTENSION Status: Chronic Qualifiers: Hypertension type: essential hypertension (5) CHIARA (obstructive sleep apnea) Code(s): G47.33 - OBSTRUCTIVE SLEEP APNEA (ADULT) (PEDIATRIC) Status: Chronic (6) Tracheostomy in place Code(s): Z93.0 - TRACHEOSTOMY STATUS Status: Chronic (7) Acute on chronic respiratory failure with hypoxia and hypercapnia Code(s): J96.21 - ACUTE AND CHRONIC RESPIRATORY FAILURE WITH HYPOXIA; J96.22 - ACUTE AND CHRONIC RESPIRATORY FAILURE WITH HYPERCAPNIA Status: Resolved - Plan * Acute on chronic respiratory failure- slowly improving * HTN- blood pressure is stable * Lung cancer- stable * Hopefully back to [place] tomorrow.
[2017-10-28] MEDS: Acetaminophen/Codeine 30-300mg Tablet PO PRN ×2 (17:38→22:00)
[2017-10-28] MEDS: clonazePAM 0.5 MG TAB PO SCH (21:58)
[2017-10-28] MEDS: traZODone HCl 50 MG TAB PO SCH (21:59)
[2017-10-29] MEDS: guaiFENesin ER 600 MG TAB PO SCH ×4 (01:00→17:05)
--- NOTE | 2017-10-29 01:25 | PRG ---
DATE OF SERVICE: 10/28/2017 SUBJECTIVE: Mr. Haskins did well over the weekend. I think he is hesitant to go back to the detention, but he also quickly acknowledges that he gets much better care and attention here than he does in his care environment. OBJECTIVE: VITAL SIGNS: He is afebrile, heart rate 75, respiratory rate 16, oximetry is 84% on room air and was 93% this morning. Blood pressure 109/61. His coarse wheezes are improving slowly. HEART: Regular rhythm. ABDOMEN: Soft. IMPRESSION: 1. Chronic obstructive pulmonary disease exacerbation. 2. Retained secretions, improving. 3. Sleep apnea treated with a tracheostomy because of severe claustrophobia. 4. Recurrent colon cancer, metastatic lung. He desires neb treatment. 5. History of pulmonary embolism in the distant past, with a culture in place. PLAN: Increase his activity gradually, and he can go back to the detention tomorrow if he is agre eable. He has not been walking much more than in the room. He walks in the detention down to the dining room and back, and walks around a little bit with a wheelchair and an oxygen tank in the [facility]. He uses that like a walker he says.
[2017-10-29 07:16] LABS: Anion Gap 10 mmol/L (10-20); BUN (Urea Nitrogen) 15 mg/dL (8.4-25.7); Calc. Creatinine Clearance 167 mL/min (70-130); Carbon Dioxide 36 mmol/L (23-31); Chloride 98 mmol/L (98-107); Estimated GFR-MDRD Greater than 90; Glucose 82 mg/dL (80-115); Magnesium 2.3 mg/dL (1.6-2.6); Potassium 4.1 mmol/L (3.5-5.1); Sodium 140 mmol/L (136-145)
[2017-10-29] MEDS: Famotidine 20 MG TAB PO SCH (08:08)
[2017-10-29] MEDS: predniSONE 20 MG TAB PO SCH (08:08)
[2017-10-29] MEDS: Carvedilol 3.125 MG TAB PO SCH (08:08)
[2017-10-29] MEDS: Fluticasone Propionate Nasal Spray 16 gm Bottle NASAL SCH (08:08)
[2017-10-29] MEDS: Citalopram 20 MG TAB PO SCH (08:08)
[2017-10-29] MEDS: Docusate 100 MG CAP PO SCH (08:08)
[2017-10-29] MEDS: Enoxaparin Sodium 40 MG/0.4 ML SYRINGE SC SCH (08:08)
[2017-10-29] MEDS: Acetaminophen/Codeine 30-300mg Tablet PO PRN ×2 (08:23→14:35)
[2017-10-29] MEDS: Gabapentin 100 MG CAP PO SCH ×2 (08:23→14:35)
[2017-10-29] MEDS ORDERED: Furosemide 40 MG TAB PO SCH (09:00)
--- NOTE | 2017-10-29 16:31 | PDOC.PN ---
- Subjective Encounter Start Date: 10/29/17 Encounter Start Time: 16:30 Mr. Haskins was seen today in follow-up. He is doing better. He feels at his baseline. - Objective Resuscitation Status: Resuscitation Status FULL:Full Resuscitation MAR Reviewed: Yes Vital Signs & Weight: Vital Signs (12 hours) Temp Pulse Resp BP Pulse Ox 10/29/17 16:20 89 L 10/29/17 12:00 98.4 F 88 20 132/75 91 L 10/29/17 09:45 85 18 91 L 10/29/17 08:05 98.0 F 80 18 84 L 10/29/17 08:00 98.0 F 80 18 143/78 H 84 L Weight Weight 271 lb 8 oz I&O: 10/28/17 10/29/17 10/30/17 06:59 06:59 06:59 Intake Total 1000 2200 Output Total 2700 2225 Balance -1700 -25 Result Diagrams: 10/25/17 08:58 10/29/17 06:26 Additional Labs: Accuchecks 10/29/17 10/29/17 10/28/17 11:20 05:50 19:14 POC Glucose 105 95 171 H Phys Exam - Physical Examination HEENT: PERRLA Respiratory: no wheezing, no rales, no rhonchi, clear to auscultation bilateral Cardiovascular: RRR, no significant murmur Gastrointestinal: soft, non-tender, positive bowel sounds Musculoskeletal: no edema Dx/Plan (1) COPD exacerbation Code(s): J44.1 - CHRONIC OBSTRUCTIVE PULMONARY DISEASE W (ACUTE) EXACERBATION Status: Acute Comment: improving.. (2) Colon cancer metastasized to lung Code(s): C18.9 - MALIGNANT NEOPLASM OF COLON, UNSPECIFIED; C78.00 - SECONDARY MALIGNANT NEOPLASM OF UNSPECIFIED LUNG Status: Chronic (3) History of pulmonary embolism Code(s): Z86.711 - PERSONAL HISTORY OF PULMONARY EMBOLISM Status: Chronic (4) Hypertension Code(s): I10 - ESSENTIAL (PRIMARY) HYPERTENSION Status: Chronic Qualifiers: Hypertension type: essential hypertension (5) CHIARA (obstructive sleep apnea) Code(s): G47.33 - OBSTRUCTIVE SLEEP APNEA (ADULT) (PEDIATRIC) Status: Chronic (6) Tracheostomy in place Code(s): Z93.0 - TRACHEOSTOMY STATUS Status: Chronic (7) Acute on chronic respiratory failure with hypoxia and hypercapnia Code(s): J96.21 - ACUTE AND CHRONIC RESPIRATORY FAILURE WITH HYPOXIA; J96.22 - ACUTE AND CHRONIC RESPIRATORY FAILURE WITH HYPERCAPNIA Status: Resolved - Plan * Acute on chronic respiratory failure- improved * COPD exacerbation- resolved * He is stable for transition back to the correction.
[2017-10-29 17:17] VITALS: BP 130/74; TEMP 98.5
[2017-10-29] MEDS ORDERED: Mupirocin 2% Ointment 22 GM Tube TOP SCH (21:00)
--- NOTE | 2017-10-29 23:18 | PRG ---
DATE OF SERVICE: 10/29/2017 SUBJECTIVE: Mr. Jairo Haskins did well overnight. He thinks he is stable enough to go back to his [facility] home. OBJECTIVE: LUNGS: Clear today. HEART: Regular rhythm. ABDOMEN: Soft. ASSESSMENT AND PLAN: I have written for a slow steroid taper. He is tapered to 10 mg gradually over the next few weeks and see me in 3-4 weeks. He is encouraged to use humidity at the [facility].
--- NOTE | 2017-10-30 00:35 | DIS ---
PRIMARY CARE PHYSICIAN: Dr. Adrien Gamboa. DATE OF ADMISSION: 10/21/2017 DATE OF DISCHARGE: 10/29/2017 DISCHARGE DISPOSITION: Back to the nursing facility. DISCHARGE DIAGNOSES: 1. Acute on chronic respiratory failure secondary to chronic obstructive pulmonary disease exacerbat ion. 2. Obstructive sleep apnea on CPAP at night. 3. History of lung mass felt to be metastatic cancer. 4. Colon cancer. 5. Hypertension. 6. Dyslipidemia. 7. History of depression. DISCHARGE MEDICATIONS: Include Levaquin 500 mg 1 p.o. q. day for 5 days, Protonix 40 mg daily, DuoNe bs q.i.d., Mucinex 600 mg q.12 hours, Neurontin 100 mg 3 times a day, Lasix 40 mg daily, Flonase nasa l spray twice a day, Colace 100 mg twice daily, clonazepam 0.5 mg at bedtime, Celexa 20 mg q. day, ca rvedilol 3.125 mg twice daily, Pulmicort twice a day, aspirin 81 mg daily, Xanax 0.25 mg q.4 hours as needed, Tylenol No. 3 q.4 hours as needed, and Regular Strength Tylenol p.r.n. PROCEDURES DONE DURING THE ADMISSION: The patient had an echocardiogram in which the ejection fracti on was estimated at 50% to 55%. There was some grade I/III diastolic dysfunction. CODE STATUS: FULL CODE. ALLERGIES: No known drug allergies. HOSPITAL COURSE: Mr. Haskins is a pleasant 62-year-old gentleman who was admitted to the hospital wit h complaints of cough and shortness of breath. The cough was productive of some yellow sputum. He w as found to be hypoxic as well. He was transferred to the hospital where he was admitted for COPD ex acerbation. He was treated with IV antibiotics as well as neb treatments and steroids. He improved over the course of the next few days. He was also treated a few days with IV Lasix for mild volume o verload and was subsequently able to be transitioned back to oral Lasix and then transitioned back to the custodial.
== END 2017-10-29 18:30 | DRG 208 ==
LOC: ERS 16:26 → IMCU/EMU 17:15 → SURG B 10-23 13:46
PROVIDERS: ADMIT Internal Medicine; ATTEND Internal Medicine
PROC: 5A1935Z Respiratory Ventilation, Less than 24 Consecutive Hours (ICD-10-PCS; 2017-10-21)
PROC: 5A1935Z Respiratory Ventilation, Less than 24 Consecutive Hours (ICD-10-PCS; principal; 2017-10-23)
PROC: 5A1935Z Respiratory Ventilation, Less than 24 Consecutive Hours (ICD-10-PCS; 2017-10-24)
PROC: 5A1935Z Respiratory Ventilation, Less than 24 Consecutive Hours (ICD-10-PCS; 2017-10-25)
PROC: 5A1935Z Respiratory Ventilation, Less than 24 Consecutive Hours (ICD-10-PCS; 2017-10-26)
PROC: 5A1935Z Respiratory Ventilation, Less than 24 Consecutive Hours (ICD-10-PCS; 2017-10-27)
PROC: 5A1935Z Respiratory Ventilation, Less than 24 Consecutive Hours (ICD-10-PCS; 2017-10-28)
PROC: 5A1935Z Respiratory Ventilation, Less than 24 Consecutive Hours (ICD-10-PCS; 2017-10-29)
DX: J96.21 Acute and chronic respiratory failure with hypoxia (principal); Z93.0 Tracheostomy status; J44.1 Chronic obstructive pulmonary disease with (acute) exacerbation; C78.02 Secondary malignant neoplasm of left lung; Z99.81 Dependence on supplemental oxygen; I11.0 Hypertensive heart disease with heart failure; E87.70 Fluid overload, unspecified; E78.5 Hyperlipidemia, unspecified; F32.9 Major depressive disorder, single episode, unspecified; G47.33 Obstructive sleep apnea (adult) (pediatric); F40.240 Claustrophobia; Z79.01 Long term (current) use of anticoagulants; F41.9 Anxiety disorder, unspecified; Z87.891 Personal history of nicotine dependence; Z85.038 Personal history of other malignant neoplasm of large intestine; Z90.49 Acquired absence of other specified parts of digestive tract; J96.22 Acute and chronic respiratory failure with hypercapnia; Z86.711 Personal history of pulmonary embolism; E66.9 Obesity, unspecified; Z68.36 Body mass index [BMI] 36.0-36.9, adult; K21.9 Gastro-esophageal reflux disease without esophagitis
CPT/HCPCS: 36415; 36416; 71045; 80048; 80053; 82553; 83605; 83735; 83880; 84484; 85025; 87040; 87070; 87205; 93005; 93306; 93798; 94640; 94660; 94760; 96365; 96366; 96368; 96375; A4216; J1650; J1940; J1956; J2543; J2920; J2930; J3370; J7050; J7506; J7620

== ENCOUNTER 2017-12-06 11:37 | Inpatient (IN) | payer OTHER ==
[2017-12-06] MEDS ORDERED: methylPREDNISolone Sod Succ/PF 125 MG/2 ML VIAL ONE (12:13)
[2017-12-06 12:17] LABS: #Eosinphils 0.3 thou/uL (0.0-0.7); #Monocytes 1.1 thou/uL (0.11-0.59); #Neutrophils 9.6 thou/uL (1.40-6.50); %Basophils 0.4 % (0.0-1.0); %Eosinophils 2.7 % (0.0-10.0); %Lymphocytes 8.1 % (21.0-51.0); %Monocytes 8.9 % (0.0-10.0); Hemoglobin 13.8 g/dL (14.0-18.0); Mean Corpuscular HGB CONC 30.4 g/dL (32.0-36.0); Mean Corpuscular Hemoglobin 27.6 pg (27.0-31.0); Mean Corpuscular Volume 90.8 fl (80.0-94.0); Mean Platelet Volume 8.6 fL (7.4-10.4); Platelet Count 203 thou/uL (130-400); RBC Distribution Width 14.3 % (11.5-14.5); Red Blood Cell (RBC) Count 4.99 mill/uL (4.70-6.10); White Blood Cell (WBC) Count 11.9 thou/uL (4.8-10.8)
[2017-12-06] MEDS ORDERED: Piperacillin/Tazobactam 4.5 GM in Sodium Chloride 0.9% 100 ML IVPB ONE (12:30)
[2017-12-06 12:38] LABS: ALT (SGPT) 9 U/L (8-55); AST (SGOT) 10 U/L (5-34); Albumin 3.9 g/dL (3.4-4.8); Alkaline Phosphatase 70 U/L (40-150); Anion Gap 12 mmol/L (10-20); BUN (Urea Nitrogen) 17 mg/dL (8.4-25.7); Bilirubin, Total 0.5 mg/dL (0.2-1.2); CK (CPK) 62 U/L (30-200); Calc. Creatinine Clearance 0 mL/min (70-130); Calcium 9.1 mg/dL (7.8-10.44); Carbon Dioxide 33 mmol/L (23-31); Chloride 100 mmol/L (98-107); Estimated GFR-MDRD Greater than 90; Globulin 3.6 g/dL (2.4-3.5); Glucose 119 mg/dL (80-115); Potassium 4.6 mmol/L (3.5-5.1); Protein, Total 7.5 g/dL (5.8-8.1); Sodium 140 mmol/L (136-145)
[2017-12-06] MEDS ORDERED: Albuterol Sulfate 2.5 mg/3 ml Neb ONE ×2 (12:38→12:39)
[2017-12-06] MEDS ORDERED: Albuterol Sulfate 2.5 mg/0.5 ml Neb ONE (12:38)
[2017-12-06 12:42] LABS: CKMB 5.3 ng/mL (0-6.6); Troponin I 0.015 ng/mL (< 0.028)
[2017-12-06 12:55] LABS: pH, Arterial 7.28 (7.35-7.45)
[2017-12-06 12:56] LABS: Actual Bicarbonate (HCO3a) 37.8 mEq/L (22-26); Base Excess (BEa) 7.9 mEq/L (0 (+/-) 2.5); Hematocrit-ABG 47.3 % (42.0-52.0); Hemoglobin (Hb) 13.3 g/dL (14.0-18.0); O2 Tension (PaO2) 58.5 mmHg (80.0-100.0)
[2017-12-06 12:57] LABS: Calcium, Ionized 1.2 mmol/L (1.12-1.30); Puncture Site RRA
--- NOTE | 2017-12-06 13:02 | RAD ---
PORTABLE AP CHEST XRAY: DATE: 12/06/17. HISTORY: Hypoxia and shortness of breath. COMPARISON: 10/21/17. FINDINGS: The heart remains enlarged. There is a dense area of opacity seen at the left lung base which may be related to pneumonia. Mild prominence of interstitial densities is seen at the medial right lung ba se. Pulmonary vasculature is at the upper limits of normal but stable from the prior study. Tracheo stomy device remains in place. No other interval change. IMPRESSION: 1. Dense opacity at the left lung base probably related to pneumonia. However, continued followup t o resolution is recommended to exclude neoplastic process. 2. Minimal nonspecific interstitial densities medial right lung base. 3. Cardiomegaly. POS: [facility]
[2017-12-06] MEDS ORDERED: Ondansetron HCl/PF 4 MG/2 ML Vial IVP PRN (13:30)
[2017-12-06] MEDS ORDERED: Sedation Protocol FS ONE (13:30)
[2017-12-06] MEDS ORDERED: CCU Electrolyte Replacement 1 EACH FS ONE (13:30)
[2017-12-06] MEDS ORDERED: CCU ELECTROLYTE REPLACEMENT PROTOCOL FS PRN (13:36)
[2017-12-06] MEDS ORDERED: Potassium Phosphate 12 MMOL in Sodium Chloride 0.9% 250 ML 250 ML IV PRN (13:36)
[2017-12-06] MEDS ORDERED: Potassium Phosphate 15 MMOL in Sodium Chloride 0.9% 250 ML 250 ML IV PRN (13:36)
[2017-12-06] MEDS ORDERED: Potassium Chloride 40 MEQ in Sodium Chloride 0.9% 250 ML 250 ML IVPB PRN (13:36)
[2017-12-06] MEDS ORDERED: Magnesium Oxide 400 MG TAB PO PRN ×2 (13:36)
[2017-12-06] MEDS ORDERED: Potassium Chloride 20 MEQ TAB PO PRN (13:36)
[2017-12-06] MEDS ORDERED: Potassium Chloride 40 MEQ in Premix Bag 1 BAG IVPB PRN (13:36)
[2017-12-06] MEDS ORDERED: Magnesium 2 GM/NS 0.9% 100 ML 2 GM in Premix Bag 1 BAG IVPB PRN (13:36)
[2017-12-06] MEDS ORDERED: Potassium Phosphate 9 MMOL in Sodium Chloride 0.9% 100 ML IVPB PRN (13:36)
[2017-12-06] MEDS ORDERED: Propofol 1,000 MG/100 ML VIAL IV PRN (13:43)
[2017-12-06] MEDS ORDERED: Lorazepam 2 MG/ML VIAL SLOW IVP PRN (13:43)
[2017-12-06] MEDS ORDERED: fentaNYL Citrate/PF 2,000 MCG in Sodium Chloride 0.9% 60 ML IV SCH (14:00)
[2017-12-06] MEDS ORDERED: Cefepime 1 GM in Sodium Chloride 0.9% 100 ML IVPB SCH (14:00)
[2017-12-06] MEDS: Sodium Chloride 0.9% 1,000 ML IV SCH (15:29)
--- NOTE | 2017-12-06 16:00 | HP ---
REASON FOR ADMISSION: Acute respiratory failure with hypercarbia and hypoxia, left lung pneumonia. HISTORY OF PRESENT ILLNESS: The patient was sent from [facility] for saturations of around 70% on trach collar. The patient has shortness of breath. He says he just got worse from this morning. He does not have a speaking valve at present, but he is able to communicate nonverbally. He has no complaints of chest pain or palpitation. He has been having increased secretions coming out of his trach from early this morning. He is at 45 degrees head end elevation in the ER. His respiratory rate is around 24-30. He is currently saturating around 85% on trach collar here. The patient received a dose of vancomycin, Zosyn, Levaquin, DuoNebs, and Solu-Medrol 125 mg IV push, all of this done in the ER. ER physician, Dr. Melendez spoke to Dr. Bellamy about patient and the plan is to admit him to ICU, change his trach, and place him on the ventilator for now. PAST MEDICAL AND SURGICAL HISTORY: History of morbid obesity with tracheostomy ; chronic respiratory failure, on trach collar; obstructive sleep apnea; history of left lower lobe lung mass; history of colon cancer with suspected metastasis; hypertension; dyslipidemia; history of PE; GERD; depression; recent removal of PEG tube; history of femoral artery laceration status post repair; exploratory laparotomy. CURRENT MEDICATIONS: Per [facility] records, the patient is on DuoNebs; Augmentin 875 mg, which was started on the 12th, twice daily for cough and congestion; aspirin 81 mg p.o. daily; budesonide inhaler twice daily; Claritin 10 mg daily; Coreg 3.125 mg twice daily; Colace 100 mg twice daily; Flonase nasal spray p.r.n.; Klonopin 0.5 mg p.o. at bedtime; Lasix 40 mg p.o. daily; MiraLax 17 grams daily; Mucinex 600 mg 4 times daily; Neurontin 100 mg 3 times daily; potassium chloride extended release 20 mEq p.o. daily; Protonix 40 mg p.o. daily; Spiriva inhaler 18 mcg daily; trazodone 50 mg p.o. twice daily; Tylenol with codeine q.6 hourly p.r.n. ALLERGIES: No known drug allergies. PERSONAL HISTORY: Quit smoking 3 years back. Does not abuse alcohol or drugs. He is a resident of [facility]. FAMILY HISTORY: The patient is adopted and does not know much about his biological parents. REVIEW OF SYSTEMS: The following complete review of systems was negative, unless otherwise mentioned in the HPI or below: Constitutional: Weight loss or gain, ability to conduct usual activities. Skin: Rash, itching. Eyes: Double vision, pain. ENT/Mouth: Nose bleeding, neck stiffness, pain, tenderness. Cardiovascular: Palpitations, dyspnea on exertion, orthopnea. Respiratory: Shortness of breath, wheezing, cough, hemoptysis, fever or night sweats. Gastrointestinal: Poor appetite, abdominal pain, heartburn, nausea, vomiting, constipation, or diarrhea. Genitourinary: Urgency, frequency, dysuria, nocturia. Musculoskeletal: Pain, swelling. Neurologic/Psychiatric: Anxiety, depression. Allergy/Immunologic: Skin rash, bleeding tendency. PHYSICAL EXAMINATION: GENERAL: The patient is a 62-year-old male who is currently in mild to moderate respiratory distress. VITAL SIGNS: Blood pressure 124/80, pulse 126 per minute, respiratory rate 26 per minute, temperature 99.7 degrees Fahrenheit, saturating 66% on room air, and 84%-85% on trach collar. NECK: Supple. There is no elevated JVD. There is a tracheostomy in place HEENT: Extraocular muscles intact. Pupils reacting to light. Oral cavity: Mucous membranes are moist. No exudates or congestion. CARDIOVASCULAR: S1, S2 heard. Regular rhythm. RESPIRATORY: Air entry 1+ bilateral. Scattered rhonchi plus bilateral. ABDOMEN: Soft, bowel sounds heard. There is mild distention of abdomen. No rigidity or guarding. EXTREMITIES: There is 2+ peripheral edema. No calf tenderness. VASCULAR SYSTEM: Peripheral pulses 1+ bilateral. No ischemic ulcerations or gangrene. CENTRAL NERVOUS SYSTEM: No gross focal deficits seen. The patient is lethargic , but oriented well. PSYCHIATRIC: The patient's mood is a bit anxious, otherwise no hallucinations or delusions. LABORATORY DATA: White count of 11, H&H 13 and 45, platelet count is 203 with 80% neutrophils. Blood gas done shows a pH of 7.28, PCO2 83, pO2 58. Serum bicarbonate 33, BUN 17, creatinine 0.7, serum glucose 119. Liver enzymes within normal limits. Albumin is 3.9. Troponin I is 0.01. Chest x-ray done shows possible left lower lobe infiltrate. EKG done shows sinus tachycardia at 119 beats per minute. There are signs of incomplete RBBB. CLINICAL IMPRESSION AND PLAN: The patient will be admitted to ICU for acute on chronic respiratory failure with hypercarbia and hypoxia. The patient will be shortly going on the ventilator once his trach is changed. Dr. Bellamy is waiting for him to come up to ICU. He will be placed on cefepime and Levaquin for now. Continue his aspirin, Coreg, citalopram as before. He will be on Solu -Medrol 40 mg IV q.6 hourly along with nebulizations. When patient is more stable, a CT of the chest will be obtained to better delineate structures in the left lower lobe. A prior CAT scan done in 07/2017 is suspicious for a mass in the left lung with metastasis in both lungs. The patient also has a history of metastatic colon cancer and is not on any chemoradiation therapy towards the same and has apparently declined the same on previous occasions per Dr. Bellamy's note on 10/30/2017. We will closely monitor him in the ICU. VASU
[2017-12-06] MEDS: Gabapentin 100 MG CAP PO SCH ×2 (17:02→20:34)
[2017-12-06] MEDS: guaiFENesin ER 600 MG TAB PO SCH ×2 (17:02→23:12)
[2017-12-06 17:17] VITALS: BMI 36.8
[2017-12-06] MEDS: Cefepime 1 GM, Admixture Fee 1 EACH in Sterile Water 10 ML SLOW IVP SCH (17:45)
[2017-12-06] MEDS ORDERED: Cefepime 1 GM, Admixture Fee 1 EACH in Sterile Water 10 ML SLOW IVP SCH (18:00)
[2017-12-06] MEDS: Carvedilol 3.125 MG TAB PO SCH (20:34)
[2017-12-06] MEDS: Famotidine/PF 20 mg/2ml Vial SLOW IVP SCH (20:34)
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
[2017-12-07] MEDS: Cefepime 1 GM, Admixture Fee 1 EACH in Sterile Water 10 ML SLOW IVP SCH ×2 (05:47→17:31)
[2017-12-07] MEDS: guaiFENesin ER 600 MG TAB PO SCH ×4 (05:47→23:00)
[2017-12-07 07:13] LABS: #Lymphocytes 0.7 thou/uL (1.20-3.40); #Monocytes 0.4 thou/uL (0.11-0.59); #Neutrophils 9.1 thou/uL (1.40-6.50); %Basophils 0.2 % (0.0-1.0); %Eosinophils 0.3 % (0.0-10.0); %Lymphocytes 6.8 % (21.0-51.0); %Monocytes 4.3 % (0.0-10.0); %Neutrophils 88.4 % (42.0-75.0); Hemoglobin 12.5 g/dL (14.0-18.0); Mean Corpuscular HGB CONC 30.7 g/dL (32.0-36.0); Mean Corpuscular Volume 91.1 fl (80.0-94.0); Mean Platelet Volume 8.9 fL (7.4-10.4); Platelet Count 170 thou/uL (130-400); RBC Distribution Width 14.2 % (11.5-14.5); Red Blood Cell (RBC) Count 4.46 mill/uL (4.70-6.10); White Blood Cell (WBC) Count 10.3 thou/uL (4.8-10.8)
[2017-12-07 07:30] LABS: Anion Gap 11 mmol/L (10-20); BUN (Urea Nitrogen) 21 mg/dL (8.4-25.7); Calc. Creatinine Clearance 190 mL/min (70-130); Calcium 8.9 mg/dL (7.8-10.44); Carbon Dioxide 32 mmol/L (23-31); Chloride 101 mmol/L (98-107); Estimated GFR-MDRD Greater than 90; Glucose 130 mg/dL (80-115); Potassium 4.6 mmol/L (3.5-5.1); Sodium 139 mmol/L (136-145)
[2017-12-07] MEDS ORDERED: FLU VACC QS2017-18 36 mo. & older 0.5 ML SYRINGE IM ONE (09:00)
[2017-12-07] MEDS: Aspirin 325 MG TAB PO SCH (09:00)
[2017-12-07] MEDS: Famotidine/PF 20 mg/2ml Vial SLOW IVP SCH ×2 (09:30→20:31)
[2017-12-07] MEDS: Citalopram 20 MG TAB PO SCH (09:30)
[2017-12-07] MEDS: Gabapentin 100 MG CAP PO SCH ×3 (09:30→20:25)
[2017-12-07] MEDS: Carvedilol 3.125 MG TAB PO SCH ×2 (09:30→20:25)
[2017-12-07] MEDS: Enoxaparin Sodium 40 MG/0.4 ML SYRINGE SC SCH (09:30)
[2017-12-07] MEDS: Polyethylene Glycol 3350 17 GM Packet PO SCH (09:30)
[2017-12-07] MEDS: Sodium Chloride 0.9% 1,000 ML IV SCH (09:51)
--- NOTE | 2017-12-07 11:39 | PDOC.PN ---
- Subjective Encounter Start Date: 12/07/17 Encounter Start Time: 08:45 Subjective: on vent, is awake, responds well to verbal stimuli -: no abd pain, feels better - Objective MAR Reviewed: Yes Vital Signs & Weight: Vital Signs (12 hours) Temp Pulse Resp BP Pulse Ox 12/07/17 10:43 88 109/63 12/07/17 08:00 98.2 F 12/07/17 07:03 87 127/67 12/07/17 05:51 21 H 12/07/17 04:00 98.6 F 23 H 12/07/17 02:26 84 12/07/17 02:25 90 L 12/07/17 02:00 22 H 12/07/17 00:00 24 H 12/06/17 23:57 98.4 F Weight Admit Weight 287 lb 0.67 oz Weight 287 lb 0.67 oz Most Recent Monitor Data Heart Rate from ECG 83 NIBP 109/63 NIBP BP-Mean 75 Respiration from ECG 22 SpO2 91 I&O: 12/06/17 12/07/17 12/08/17 06:59 06:59 06:59 Intake Total 506 Output Total 925 200 Balance -419 -200 Result Diagrams: 12/07/17 06:57 12/07/17 06:57 Additional Labs: Accuchecks 12/06/17 22:18 POC Glucose 127 H Phys Exam - Physical Examination HEENT: PERRLA trach+ Neck: no JVD, supple Respiratory: no wheezing, no rales rhonchi+ Cardiovascular: RRR, no significant murmur Gastrointestinal: soft, non-tender, positive bowel sounds abd distention+ Musculoskeletal: pulses present, edema present Neurological: non-focal, moves all 4 limbs Psychiatric: A&O x 3 Dx/Plan (1) Acute on chronic respiratory failure with hypoxia and hypercapnia Code(s): J96.21 - ACUTE AND CHRONIC RESPIRATORY FAILURE WITH HYPOXIA; J96.22 - ACUTE AND CHRONIC RESPIRATORY FAILURE WITH HYPERCAPNIA Status: Acute (2) COPD exacerbation Code(s): J44.1 - CHRONIC OBSTRUCTIVE PULMONARY DISEASE W (ACUTE) EXACERBATION Status: Acute Comment: improving.. (3) Anxiety and depression Code(s): F41.9 - ANXIETY DISORDER, UNSPECIFIED; F32.9 - MAJOR DEPRESSIVE DISORDER, SINGLE EPISODE, UNSPECIFIED Status: Chronic (4) Colon cancer metastasized to lung Code(s): C18.9 - MALIGNANT NEOPLASM OF COLON, UNSPECIFIED; C78.00 - SECONDARY MALIGNANT NEOPLASM OF UNSPECIFIED LUNG Status: Chronic (5) GERD (gastroesophageal reflux disease) Code(s): K21.9 - GASTRO-ESOPHAGEAL REFLUX DISEASE WITHOUT ESOPHAGITIS Status: Chronic Qualifiers: Esophagitis presence: esophagitis presence not specified (6) Hyperlipidemia Code(s): E78.5 - HYPERLIPIDEMIA, UNSPECIFIED Status: Chronic (7) Hypertension Code(s): I10 - ESSENTIAL (PRIMARY) HYPERTENSION Status: Chronic Qualifiers: Hypertension type: essential hypertension (8) CHIARA (obstructive sleep apnea) Code(s): G47.33 - OBSTRUCTIVE SLEEP APNEA (ADULT) (PEDIATRIC) Status: Chronic (9) Obesity (BMI 30-39.9) Code(s): E66.9 - OBESITY, UNSPECIFIED Status: Chronic (10) Tracheostomy in place Code(s): Z93.0 - TRACHEOSTOMY STATUS Status: Chronic - Plan weaning per pulm advice -: is on cefepime and levaquin -: nebs, steroids -: may start oral meds via ng this pm if still on vent -: watch for abd distention-no tenderness, ?last bm * . Review of Systems - Medications/Allergies Allergies/Adverse Reactions: Allergies Allergy/AdvReac Type Severity Reaction Status Date / Time No Known Drug Allergies Allergy Verified 12/17/16 05:50 Medications: Current Medications Acetaminophen (Tylenol) 650 mg PO Q4H PRN PRN Reason: Headache/Fever or MILD Pain Albuterol/Ipratropium (Duoneb) 3 ml NEB [id number] [facility] Last Admin: 12/07/17 07:02 Dose: 3 ml Aspirin (Aspirin) 81 mg PO DAILY [facility] Carvedilol (Coreg) 3.125 mg PO BID [facility] Last Admin: 12/06/17 20:34 Dose: Not Given Citalopram Hydrobromide (Celexa) 20 mg PO DAILY [facility] Enoxaparin Sodium (Lovenox) 40 mg SC 0900 [facility] Last Admin: 12/07/17 09:30 Dose: 40 mg Famotidine (Pepcid) 20 mg SLOW IVP Q12HR [facility] Last Admin: 12/07/17 09:30 Dose: 20 mg Gabapentin (Neurontin) 100 mg PO TID [facility] Last Admin: 12/06/17 20:34 Dose: Not Given Guaifenesin (Mucinex) 600 mg PO Q6HR [facility] Last Admin: 12/07/17 05:47 Dose: Not Given Levofloxacin 500 mg/ Device 100 mls @ 100 mls/hr IVPB 1200 JIGNESH Sodium Chloride (Normal Saline 0.9%) 1,000 mls @ 50 mls/hr IV .Q20H [facility] Last Admin: 12/07/17 09:51 Dose: 1,000 mls Potassium Chloride 40 meq/ (Sodium Chloride) 270 mls @ 135 mls/hr IVPB ASDIR PRN PRN Reason: FOR SERUM K+ 2.5 - 3.5 Potassium Chloride 40 meq/ (Device) 100 mls @ 50 mls/hr IVPB ASDIR PRN PRN Reason: FOR SERUM K+ 2.5 - 3.5 Magnesium Sulfate 1 gm/ Sodium (Chloride) 102 mls @ 102 mls/hr IV PRN PRN PRN Reason: MAG LEVEL 1.4 - 2.0 Magnesium Sulfate 2 gm/ Device 100 mls @ 100 mls/hr IVPB ASDIR PRN PRN Reason: MAGNESIUM < 1.4 Potassium Phosphate 9 mmol/ (Sodium Chloride) 103 mls @ 25.75 mls/hr IVPB ASDIR PRN PRN Reason: Phosphate 1.0-1.8 Potassium Phosphate 12 mmol/ (Sodium Chloride) 254 mls @ 63.5 mls/hr IV ASDIR PRN PRN Reason: Serum phosphate 0.5-0.9 Potassium Phosphate 15 mmol/ (Sodium Chloride) 255 mls @ 63.75 mls/hr IV ASDIR PRN PRN Reason: Serum Phos < 0.5 Fentanyl Citrate 2,000 mcg/ (Sodium Chloride) 100 mls @ 0 mls/hr IV INF JIGNESH PRN Reason: As Directed Cefepime HCl 1 gm/Miscellaneous Medication 1 each/ Sterile Water 10 mls @ 120 mls/hr SLOW IVP 0600,1800 [facility] Last Admin: 12/07/17 05:47 Dose: 10 mls Lorazepam (Ativan) 2 mg SLOW IVP Q2H PRN PRN Reason: Anxiety to achieve Nieto 2-3 Stop: 01/05/18 13:43 Magnesium Oxide (Magnesium Oxide) 400 mg PO BIDPRN PRN PRN Reason: FOR SERUM MAG 1.4 - 2.0 Magnesium Oxide (Magnesium Oxide) 800 mg PO PRN PRN PRN Reason: FOR SERUM MAG < 1.4 Methylprednisolone Sodium Succinate (Solu-Medrol) 40 mg IVP Q6HR [facility] Last Admin: 12/07/17 05:47 Dose: 40 mg Miscellaneous Medication (Phos-Nak) 1 pkt PO TIDPRN PRN PRN Reason: FOR PHOS LEVEL 1.0 - 1.8 Miscellaneous Medication (Phos-Nak) 2 pkt PO TIDPRN PRN PRN Reason: FOR PHOS LEVEL 0.5 - 1.0 Morphine Sulfate (Morphine) 2 mg SLOW IVP Q2H PRN PRN Reason: Breakthrough pain Last Admin: 12/07/17 09:40 Dose: 2 mg Ccu Electrolyte (Replacement Protocol) 0 each FS PRN PRN PRN Reason: FOR ELECTROLYTE REPLACEMENT Ondansetron HCl (Zofran) 4 mg IVP Q6H PRN PRN Reason: Nausea/Vomiting Polyethylene Glycol (Miralax) 17 gm PO DAILY [facility] Potassium Chloride (K-Dur) 40 meq PO ASDIR PRN PRN Reason: FOR SERUM K+ 2.5 - 3.5 Potassium Chloride (Klor-Con) 40 meq PER TUBE ASDIR PRN PRN Reason: FOR SERUM K+ 2.5-3.5 Propofol (Diprivan) 1,000 mg IV INF PRN; Protocol PRN Reason: TO ACHIEVE NIETO SCORE 2-3 Stop: 01/05/18 13:43
[2017-12-07] MEDS: Levofloxacin 750 mg/D5W 500 MG in Premix Bag 1 BAG IVPB SCH (12:25)
--- NOTE | 2017-12-07 21:05 | PRG ---
DATE OF SERVICE: 12/07/2017 SUBJECTIVE: Mr. Haskins did well overnight. He still feels weak and does not feel he is ready to com e off the ventilator yet. Hopefully, by tomorrow morning. OBJECTIVE: VITAL SIGNS: His heart rate 73, blood pressure 119/61, respiratory rate is in the teens. LUNGS: Remarkable for coarse equal breath sounds. HEART: Regular rhythm. ABDOMEN: Soft. LABORATORY DATA: White count is 10.3, hemoglobin 12.5, platelets 170,000. Sodium 139, potassium 4.6, chloride 101, bicarb 32, BUN 21, creatinine 0.75. IMPRESSION AND PLAN: 1. Respiratory failure secondary to retained secretions secondary to his noncompliance with using hu midified air when he is breathing through his tracheostomy. 2. Metastatic recurrent colon cancer. He is opted out for treatment. Hopefully, we can place him o n a trach collar in the morning. Critical care time was 30 minutes.
[2017-12-08 04:31] LABS: Anion Gap 10 mmol/L (10-20); BUN (Urea Nitrogen) 24 mg/dL (8.4-25.7); Calc. Creatinine Clearance 188 mL/min (70-130); Calcium 9.2 mg/dL (7.8-10.44); Carbon Dioxide 34 mmol/L (23-31); Chloride 100 mmol/L (98-107); Estimated GFR-MDRD Greater than 90; Glucose 131 mg/dL (80-115); Potassium 4.4 mmol/L (3.5-5.1); Sodium 140 mmol/L (136-145)
[2017-12-08] MEDS: guaiFENesin ER 600 MG TAB PO SCH ×4 (05:10→23:25)
[2017-12-08] MEDS ORDERED: Budesonide 0.5 MG/2 ML NEB ONE (05:12)
[2017-12-08] MEDS: Cefepime 1 GM, Admixture Fee 1 EACH in Sterile Water 10 ML SLOW IVP SCH ×2 (05:15→18:42)
[2017-12-08] MEDS: Sodium Chloride 0.9% 1,000 ML IV SCH (05:15)
[2017-12-08] MEDS: Carvedilol 3.125 MG TAB PO SCH ×2 (09:02→20:33)
[2017-12-08] MEDS: Aspirin 325 MG TAB PO SCH (09:02)
[2017-12-08] MEDS: Citalopram 20 MG TAB PO SCH (09:02)
[2017-12-08] MEDS: Polyethylene Glycol 3350 17 GM Packet PO SCH (09:03)
[2017-12-08] MEDS: Gabapentin 100 MG CAP PO SCH ×3 (09:03→20:33)
[2017-12-08] MEDS: Famotidine/PF 20 mg/2ml Vial SLOW IVP SCH ×2 (09:16→20:21)
[2017-12-08] MEDS: Enoxaparin Sodium 40 MG/0.4 ML SYRINGE SC SCH (09:16)
[2017-12-08] MEDS: Levofloxacin 750 mg/D5W 500 MG in Premix Bag 1 BAG IVPB SCH (11:29)
--- NOTE | 2017-12-08 11:43 | PDOC.PN ---
- Subjective Encounter Start Date: 12/08/17 Encounter Start Time: 10:20 Subjective: sitting in chair on vent and trach -: feels better -: no abd pain - Objective MAR Reviewed: Yes Vital Signs & Weight: Vital Signs (12 hours) Temp Pulse Resp BP 12/08/17 10:38 72 131/63 12/08/17 07:21 72 144/73 H 12/08/17 06:00 22 H 12/08/17 04:14 74 136/70 12/08/17 04:00 98.0 F 18 12/08/17 02:00 18 12/08/17 01:06 72 12/08/17 00:00 98.4 F 20 Weight Admit Weight 287 lb 0.67 oz Weight 287 lb 0.67 oz Most Recent Monitor Data Heart Rate from ECG 70 NIBP 131/67 NIBP BP-Mean 94 Respiration from ECG 19 SpO2 92 I&O: 12/07/17 12/08/17 12/09/17 06:59 06:59 06:59 Intake Total 506 1299 Output Total 925 1000 Balance -419 299 Result Diagrams: 12/07/17 06:57 12/08/17 03:30 Additional Labs: Accuchecks 12/08/17 11:23 POC Glucose 121 H Phys Exam - Physical Examination HEENT: PERRLA, moist MMs Neck: no JVD, supple trach+ Respiratory: no wheezing rhonchi+ Cardiovascular: RRR, no significant murmur Gastrointestinal: soft, non-tender, positive bowel sounds Musculoskeletal: pulses present, edema present Neurological: non-focal, moves all 4 limbs Psychiatric: A&O x 3 Dx/Plan (1) Acute on chronic respiratory failure with hypoxia and hypercapnia Code(s): J96.21 - ACUTE AND CHRONIC RESPIRATORY FAILURE WITH HYPOXIA; J96.22 - ACUTE AND CHRONIC RESPIRATORY FAILURE WITH HYPERCAPNIA Status: Acute (2) COPD exacerbation Code(s): J44.1 - CHRONIC OBSTRUCTIVE PULMONARY DISEASE W (ACUTE) EXACERBATION Status: Acute Comment: improving.. (3) Anxiety and depression Code(s): F41.9 - ANXIETY DISORDER, UNSPECIFIED; F32.9 - MAJOR DEPRESSIVE DISORDER, SINGLE EPISODE, UNSPECIFIED Status: Chronic (4) Colon cancer metastasized to lung Code(s): C18.9 - MALIGNANT NEOPLASM OF COLON, UNSPECIFIED; C78.00 - SECONDARY MALIGNANT NEOPLASM OF UNSPECIFIED LUNG Status: Chronic (5) GERD (gastroesophageal reflux disease) Code(s): K21.9 - GASTRO-ESOPHAGEAL REFLUX DISEASE WITHOUT ESOPHAGITIS Status: Chronic Qualifiers: Esophagitis presence: esophagitis presence not specified (6) Hyperlipidemia Code(s): E78.5 - HYPERLIPIDEMIA, UNSPECIFIED Status: Chronic (7) Hypertension Code(s): I10 - ESSENTIAL (PRIMARY) HYPERTENSION Status: Chronic Qualifiers: Hypertension type: essential hypertension (8) CHIARA (obstructive sleep apnea) Code(s): G47.33 - OBSTRUCTIVE SLEEP APNEA (ADULT) (PEDIATRIC) Status: Chronic (9) Obesity (BMI 30-39.9) Code(s): E66.9 - OBESITY, UNSPECIFIED Status: Chronic (10) Tracheostomy in place Code(s): Z93.0 - TRACHEOSTOMY STATUS Status: Chronic - Plan weaning on vent -: on cefepime and levaquin, nebs and steroids -: hemostable -: oral meds when off vent/ng tube -: will f/u * . Review of Systems - Medications/Allergies Allergies/Adverse Reactions: Allergies Allergy/AdvReac Type Severity Reaction Status Date / Time No Known Drug Allergies Allergy Verified 12/17/16 05:50 Medications: Current Medications Acetaminophen (Tylenol) 650 mg PO Q4H PRN PRN Reason: Headache/Fever or MILD Pain Albuterol/Ipratropium (Duoneb) 3 ml NEB [id number] [facility] Last Admin: 12/08/17 07:21 Dose: 3 ml Aspirin (Aspirin) 81 mg PO DAILY [facility] Last Admin: 12/08/17 09:02 Dose: Not Given Carvedilol (Coreg) 3.125 mg PO BID [facility] Last Admin: 12/08/17 09:02 Dose: Not Given Citalopram Hydrobromide (Celexa) 20 mg PO DAILY [facility] Last Admin: 12/08/17 09:02 Dose: Not Given Enoxaparin Sodium (Lovenox) 40 mg SC 0900 [facility] Last Admin: 12/08/17 09:16 Dose: 40 mg Famotidine (Pepcid) 20 mg SLOW IVP Q12HR [facility] Last Admin: 12/08/17 09:16 Dose: 20 mg Gabapentin (Neurontin) 100 mg PO TID [facility] Last Admin: 12/08/17 09:03 Dose: Not Given Guaifenesin (Mucinex) 600 mg PO Q6HR [facility] Last Admin: 12/08/17 11:23 Dose: Not Given Levofloxacin 500 mg/ Device 100 mls @ 100 mls/hr IVPB 1200 [facility] Last Admin: 12/08/17 11:29 Dose: 100 mls Sodium Chloride (Normal Saline 0.9%) 1,000 mls @ 50 mls/hr IV .Q20H [facility] Last Admin: 12/08/17 05:15 Dose: 1,000 mls Potassium Chloride 40 meq/ (Sodium Chloride) 270 mls @ 135 mls/hr IVPB ASDIR PRN PRN Reason: FOR SERUM K+ 2.5 - 3.5 Potassium Chloride 40 meq/ (Device) 100 mls @ 50 mls/hr IVPB ASDIR PRN PRN Reason: FOR SERUM K+ 2.5 - 3.5 Magnesium Sulfate 1 gm/ Sodium (Chloride) 102 mls @ 102 mls/hr IV PRN PRN PRN Reason: MAG LEVEL 1.4 - 2.0 Magnesium Sulfate 2 gm/ Device 100 mls @ 100 mls/hr IVPB ASDIR PRN PRN Reason: MAGNESIUM < 1.4 Potassium Phosphate 9 mmol/ (Sodium Chloride) 103 mls @ 25.75 mls/hr IVPB ASDIR PRN PRN Reason: Phosphate 1.0-1.8 Potassium Phosphate 12 mmol/ (Sodium Chloride) 254 mls @ 63.5 mls/hr IV ASDIR PRN PRN Reason: Serum phosphate 0.5-0.9 Potassium Phosphate 15 mmol/ (Sodium Chloride) 255 mls @ 63.75 mls/hr IV ASDIR PRN PRN Reason: Serum Phos < 0.5 Fentanyl Citrate 2,000 mcg/ (Sodium Chloride) 100 mls @ 0 mls/hr IV INF JIGNESH PRN Reason: As Directed Cefepime HCl 1 gm/Miscellaneous Medication 1 each/ Sterile Water 10 mls @ 120 mls/hr SLOW IVP 0600,1800 [facility] Last Admin: 12/08/17 05:15 Dose: 10 mls Lorazepam (Ativan) 2 mg SLOW IVP Q2H PRN PRN Reason: Anxiety to achieve Nieto 2-3 Stop: 01/05/18 13:43 Magnesium Oxide (Magnesium Oxide) 400 mg PO BIDPRN PRN PRN Reason: FOR SERUM MAG 1.4 - 2.0 Magnesium Oxide (Magnesium Oxide) 800 mg PO PRN PRN PRN Reason: FOR SERUM MAG < 1.4 Methylprednisolone Sodium Succinate (Solu-Medrol) 40 mg IVP Q6HR [facility] Last Admin: 12/08/17 11:29 Dose: 40 mg Miscellaneous Medication (Phos-Nak) 1 pkt PO TIDPRN PRN PRN Reason: FOR PHOS LEVEL 1.0 - 1.8 Miscellaneous Medication (Phos-Nak) 2 pkt PO TIDPRN PRN PRN Reason: FOR PHOS LEVEL 0.5 - 1.0 Morphine Sulfate (Morphine) 2 mg SLOW IVP Q2H PRN PRN Reason: Breakthrough pain Last Admin: 12/08/17 11:29 Dose: 2 mg Ccu Electrolyte (Replacement Protocol) 0 each FS PRN PRN PRN Reason: FOR ELECTROLYTE REPLACEMENT Ondansetron HCl (Zofran) 4 mg IVP Q6H PRN PRN Reason: Nausea/Vomiting Polyethylene Glycol (Miralax) 17 gm PO DAILY [facility] Last Admin: 12/08/17 09:03 Dose: Not Given Potassium Chloride (K-Dur) 40 meq PO ASDIR PRN PRN Reason: FOR SERUM K+ 2.5 - 3.5 Potassium Chloride (Klor-Con) 40 meq PER TUBE ASDIR PRN PRN Reason: FOR SERUM K+ 2.5-3.5 Propofol (Diprivan) 1,000 mg IV INF PRN; Protocol PRN Reason: TO ACHIEVE NIETO SCORE 2-3 Stop: 01/05/18 13:43
--- NOTE | 2017-12-08 15:00 | PRG ---
DATE OF SERVICE: 12/08/2017 SUBJECTIVE: Mr. Haskins says he is feeling better. He does not feel he is ready to come off ventilat ors. We will decrease ventilatory support today to 8/3. OBJECTIVE: LUNGS: Remarkable for diffuse wheezes, but he clearly has more air movement than he had 2 days ago. VITAL SIGNS: Blood pressure is 144/73, heart rate 72, respiratory rate is in the teens. HEART: Unchanged. EXTREMITIES: Unchanged. ABDOMEN: He still has his protuberant abdomen. LABORATORY DATA: Sodium 140, potassium 4.4, chloride 100, bicarbonate 34, BUN 24, creatinine 0.76, g lucose 131. IMPRESSION: 1. Respiratory failure secondary to retained secretions, secondary to failure to use humidity. 2. Metastatic colon cancer. He has declined therapy. 3. Chronic obstructive pulmonary disease, testing. 4. Status post inferior vena cava filter placement. PLAN: Decrease ventilatory support as above. Hopefully, we will place him on trach collar in the morning. Critical care time was 30 minutes.
[2017-12-09] MEDS: Sodium Chloride 0.9% 1,000 ML IV SCH (05:04)
[2017-12-09] MEDS: Cefepime 1 GM, Admixture Fee 1 EACH in Sterile Water 10 ML SLOW IVP SCH ×2 (05:04→17:57)
[2017-12-09] MEDS: guaiFENesin ER 600 MG TAB PO SCH ×4 (05:27→23:32)
[2017-12-09 06:27] LABS: Anion Gap 13 mmol/L (10-20); BUN (Urea Nitrogen) 25 mg/dL (8.4-25.7); Calc. Creatinine Clearance 167 mL/min (70-130); Calcium 9.1 mg/dL (7.8-10.44); Carbon Dioxide 28 mmol/L (23-31); Chloride 103 mmol/L (98-107); Estimated GFR-MDRD Greater than 90; Glucose 102 mg/dL (80-115); Potassium 4.8 mmol/L (3.5-5.1); Sodium 139 mmol/L (136-145)
[2017-12-09] MEDS: Aspirin 325 MG TAB PO SCH (10:07)
[2017-12-09] MEDS: Polyethylene Glycol 3350 17 GM Packet PO SCH (10:07)
[2017-12-09] MEDS: Carvedilol 3.125 MG TAB PO SCH ×2 (10:07→20:09)
[2017-12-09] MEDS: Citalopram 20 MG TAB PO SCH (10:07)
[2017-12-09] MEDS: Gabapentin 100 MG CAP PO SCH ×3 (10:07→20:09)
[2017-12-09] MEDS: Enoxaparin Sodium 40 MG/0.4 ML SYRINGE SC SCH (10:20)
[2017-12-09] MEDS: Famotidine/PF 20 mg/2ml Vial SLOW IVP SCH ×2 (10:20→20:09)
[2017-12-09] MEDS: Levofloxacin 750 mg/D5W 500 MG in Premix Bag 1 BAG IVPB SCH (11:11)
--- NOTE | 2017-12-09 13:08 | PDOC.PN ---
- Subjective Encounter Start Date: 12/09/17 Encounter Start Time: 08:45 Subjective: on vent, is awake -: feels better - Objective MAR Reviewed: Yes Vital Signs & Weight: Vital Signs (12 hours) Temp Pulse Resp BP Pulse Ox 12/09/17 12:00 98.1 F 100 12/09/17 11:42 82 22 H 99 12/09/17 10:15 82 137/76 12/09/17 10:00 18 12/09/17 08:01 88 135/74 12/09/17 08:00 19 12/09/17 07:23 98.2 F 90 22 H 87 L 12/09/17 06:03 90 137/77 12/09/17 06:00 23 H 12/09/17 04:00 98.1 F 21 H 12/09/17 02:00 20 12/09/17 01:46 81 Weight Admit Weight 287 lb 0.67 oz Weight 255 lb 1.197 oz Most Recent Monitor Data Heart Rate from ECG 78 NIBP 132/71 NIBP BP-Mean 98 Respiration from ECG 21 SpO2 100 I&O: 12/08/17 12/09/17 12/10/17 06:59 06:59 06:59 Intake Total 1299 1261 150 Output Total 1000 725 275 Balance 299 536 -125 Result Diagrams: 12/07/17 06:57 12/09/17 04:51 Additional Labs: Accuchecks 12/08/17 16:49 POC Glucose 113 H Phys Exam - Physical Examination HEENT: PERRLA, sclera anicteric Neck: no JVD trach+ Respiratory: no wheezing rhonchi+ Cardiovascular: RRR, no significant murmur Gastrointestinal: soft, non-tender, positive bowel sounds Musculoskeletal: no edema, pulses present Neurological: non-focal, moves all 4 limbs Psychiatric: A&O x 3 Dx/Plan (1) Acute on chronic respiratory failure with hypoxia and hypercapnia Code(s): J96.21 - ACUTE AND CHRONIC RESPIRATORY FAILURE WITH HYPOXIA; J96.22 - ACUTE AND CHRONIC RESPIRATORY FAILURE WITH HYPERCAPNIA Status: Acute (2) COPD exacerbation Code(s): J44.1 - CHRONIC OBSTRUCTIVE PULMONARY DISEASE W (ACUTE) EXACERBATION Status: Acute Comment: improving.. (3) Anxiety and depression Code(s): F41.9 - ANXIETY DISORDER, UNSPECIFIED; F32.9 - MAJOR DEPRESSIVE DISORDER, SINGLE EPISODE, UNSPECIFIED Status: Chronic (4) Colon cancer metastasized to lung Code(s): C18.9 - MALIGNANT NEOPLASM OF COLON, UNSPECIFIED; C78.00 - SECONDARY MALIGNANT NEOPLASM OF UNSPECIFIED LUNG Status: Chronic (5) GERD (gastroesophageal reflux disease) Code(s): K21.9 - GASTRO-ESOPHAGEAL REFLUX DISEASE WITHOUT ESOPHAGITIS Status: Chronic Qualifiers: Esophagitis presence: esophagitis presence not specified (6) Hyperlipidemia Code(s): E78.5 - HYPERLIPIDEMIA, UNSPECIFIED Status: Chronic (7) Hypertension Code(s): I10 - ESSENTIAL (PRIMARY) HYPERTENSION Status: Chronic Qualifiers: Hypertension type: essential hypertension (8) CHIARA (obstructive sleep apnea) Code(s): G47.33 - OBSTRUCTIVE SLEEP APNEA (ADULT) (PEDIATRIC) Status: Chronic (9) Obesity (BMI 30-39.9) Code(s): E66.9 - OBESITY, UNSPECIFIED Status: Chronic (10) Tracheostomy in place Code(s): Z93.0 - TRACHEOSTOMY STATUS Status: Chronic - Plan is on vent, weaning per pulm advice -: on cefepime, levaquin, steroids and nebs -: oral meds when off vent -: hemostable now -: has declined treatement for colon ca, likely has metastasized * . Review of Systems - Medications/Allergies Allergies/Adverse Reactions: Allergies Allergy/AdvReac Type Severity Reaction Status Date / Time No Known Drug Allergies Allergy Verified 12/17/16 05:50 Medications: Current Medications Acetaminophen (Tylenol) 650 mg PO Q4H PRN PRN Reason: Headache/Fever or MILD Pain Albuterol/Ipratropium (Duoneb) 3 ml NEB [id number] [facility] Last Admin: 12/09/17 11:42 Dose: 3 ml Aspirin (Aspirin) 81 mg PO DAILY [facility] Last Admin: 12/09/17 10:07 Dose: Not Given Carvedilol (Coreg) 3.125 mg PO BID [facility] Last Admin: 12/09/17 10:07 Dose: Not Given Citalopram Hydrobromide (Celexa) 20 mg PO DAILY [facility] Last Admin: 12/09/17 10:07 Dose: Not Given Enoxaparin Sodium (Lovenox) 40 mg SC 0900 [facility] Last Admin: 12/09/17 10:20 Dose: 40 mg Famotidine (Pepcid) 20 mg SLOW IVP Q12HR [facility] Last Admin: 12/09/17 10:20 Dose: 20 mg Gabapentin (Neurontin) 100 mg PO TID [facility] Last Admin: 12/09/17 10:07 Dose: Not Given Guaifenesin (Mucinex) 600 mg PO Q6HR [facility] Last Admin: 12/09/17 11:11 Dose: 600 mg Levofloxacin 500 mg/ Device 100 mls @ 100 mls/hr IVPB 1200 [facility] Last Admin: 12/09/17 11:11 Dose: 100 mls Sodium Chloride (Normal Saline 0.9%) 1,000 mls @ 50 mls/hr IV .Q20H [facility] Last Admin: 12/09/17 05:04 Dose: 1,000 mls Potassium Chloride 40 meq/ (Sodium Chloride) 270 mls @ 135 mls/hr IVPB ASDIR PRN PRN Reason: FOR SERUM K+ 2.5 - 3.5 Potassium Chloride 40 meq/ (Device) 100 mls @ 50 mls/hr IVPB ASDIR PRN PRN Reason: FOR SERUM K+ 2.5 - 3.5 Magnesium Sulfate 1 gm/ Sodium (Chloride) 102 mls @ 102 mls/hr IV PRN PRN PRN Reason: MAG LEVEL 1.4 - 2.0 Magnesium Sulfate 2 gm/ Device 100 mls @ 100 mls/hr IVPB ASDIR PRN PRN Reason: MAGNESIUM < 1.4 Potassium Phosphate 9 mmol/ (Sodium Chloride) 103 mls @ 25.75 mls/hr IVPB ASDIR PRN PRN Reason: Phosphate 1.0-1.8 Potassium Phosphate 12 mmol/ (Sodium Chloride) 254 mls @ 63.5 mls/hr IV ASDIR PRN PRN Reason: Serum phosphate 0.5-0.9 Potassium Phosphate 15 mmol/ (Sodium Chloride) 255 mls @ 63.75 mls/hr IV ASDIR PRN PRN Reason: Serum Phos < 0.5 Fentanyl Citrate 2,000 mcg/ (Sodium Chloride) 100 mls @ 0 mls/hr IV INF JIGNESH PRN Reason: As Directed Cefepime HCl 1 gm/Miscellaneous Medication 1 each/ Sterile Water 10 mls @ 120 mls/hr SLOW IVP 0600,1800 [facility] Last Admin: 12/09/17 05:04 Dose: 10 mls Lorazepam (Ativan) 2 mg SLOW IVP Q2H PRN PRN Reason: Anxiety to achieve Nieto 2-3 Stop: 01/05/18 13:43 Magnesium Oxide (Magnesium Oxide) 400 mg PO BIDPRN PRN PRN Reason: FOR SERUM MAG 1.4 - 2.0 Magnesium Oxide (Magnesium Oxide) 800 mg PO PRN PRN PRN Reason: FOR SERUM MAG < 1.4 Methylprednisolone Sodium Succinate (Solu-Medrol) 40 mg IVP Q6HR [facility] Last Admin: 12/09/17 11:11 Dose: 40 mg Miscellaneous Medication (Phos-Nak) 1 pkt PO TIDPRN PRN PRN Reason: FOR PHOS LEVEL 1.0 - 1.8 Miscellaneous Medication (Phos-Nak) 2 pkt PO TIDPRN PRN PRN Reason: FOR PHOS LEVEL 0.5 - 1.0 Morphine Sulfate (Morphine) 2 mg SLOW IVP Q2H PRN PRN Reason: Breakthrough pain Last Admin: 12/09/17 10:31 Dose: 2 mg Ondansetron HCl (Zofran) 4 mg IVP Q6H PRN PRN Reason: Nausea/Vomiting Last Admin: 12/08/17 20:21 Dose: 4 mg Polyethylene Glycol (Miralax) 17 gm PO DAILY [facility] Last Admin: 12/09/17 10:07 Dose: Not Given Potassium Chloride (K-Dur) 40 meq PO ASDIR PRN PRN Reason: FOR SERUM K+ 2.5 - 3.5 Potassium Chloride (Klor-Con) 40 meq PER TUBE ASDIR PRN PRN Reason: FOR SERUM K+ 2.5-3.5 Propofol (Diprivan) 1,000 mg IV INF PRN; Protocol PRN Reason: TO ACHIEVE NIETO SCORE 2-3 Stop: 01/05/18 13:43
--- NOTE | 2017-12-09 15:55 | PRG ---
DATE OF SERVICE: 12/09/2017 SUBJECTIVE: Mr. Jairo Haskins is still mechanically ventilated when I rounded today. We will place him up in a chair and place him on a trach collar. OBJECTIVE: VITALS SIGNS: He is afebrile. Heart rate is 82, blood pressure 132/71. LUNGS: Improved. He is only faint wheezes. HEART: Regular rhythm. ABDOMEN: Soft. LABORATORY DATA: Sodium 139, potassium 4.8, chloride 103, bicarb 20, BUN 25 and creatinine 0.76. IMPRESSION: 1. Respiratory failure associated with retained secretions with underlying chronic obstructive pulm onary disease. 2. Severe sleep apnea treated with tracheostomy. 3. History of erythrocytosis. 4. Metastatic colon cancer, declining therapy. PLAN: Continue care of the trach collar. I would not place him back on mechanical ventilation tonig unless he has respiratory distress.
[2017-12-10 04:38] LABS: Anion Gap 11 mmol/L (10-20); BUN (Urea Nitrogen) 27 mg/dL (8.4-25.7); Calc. Creatinine Clearance 174 mL/min (70-130); Calcium 8.7 mg/dL (7.8-10.44); Carbon Dioxide 31 mmol/L (23-31); Chloride 101 mmol/L (98-107); Estimated GFR-MDRD Greater than 90; Glucose 114 mg/dL (80-115); Potassium 4.7 mmol/L (3.5-5.1); Sodium 138 mmol/L (136-145)
[2017-12-10] MEDS: guaiFENesin ER 600 MG TAB PO SCH ×3 (06:02→17:25)
[2017-12-10] MEDS: Cefepime 1 GM, Admixture Fee 1 EACH in Sterile Water 10 ML SLOW IVP SCH ×2 (06:02→17:27)
[2017-12-10] MEDS: Sodium Chloride 0.9% 1,000 ML IV SCH ×2 (06:03→17:25)
[2017-12-10] MEDS: Gabapentin 100 MG CAP PO SCH ×3 (08:40→21:35)
[2017-12-10] MEDS: Citalopram 20 MG TAB PO SCH (08:40)
[2017-12-10] MEDS: Carvedilol 3.125 MG TAB PO SCH ×2 (08:40→21:35)
[2017-12-10] MEDS: Enoxaparin Sodium 40 MG/0.4 ML SYRINGE SC SCH (08:40)
[2017-12-10] MEDS: Famotidine 20 MG TAB PO SCH ×2 (08:40→21:35)
[2017-12-10] MEDS: Polyethylene Glycol 3350 17 GM Packet PO SCH (08:43)
[2017-12-10] MEDS: Aspirin 81 mg Enteric Coated Tablet PO SCH (09:09)
--- NOTE | 2017-12-10 12:46 | PRG ---
DATE OF SERVICE: 12/10/2017 Jairo Haskins did well overnight. He is still on a trach collar. PHYSICAL EXAMINATION: VITAL SIGNS: Blood pressure 130/80, pulse 60, respiratory rate 18, oximetry is 100%. LUNGS: He still has coarse wheezes diffusely. HEART: Regular rhythm. ABDOMEN: Abdomen is soft. IMPRESSION: 1. Acute on chronic respiratory failure. 2. Status post tracheostomy for sleep apnea. 3. 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 4. Chronic obstructive pulmonary disease. 5. Inferior vena cava filter in place. 6. Metastatic colon cancer with lung metastases. PLAN: Continue supportive care, humidified trach collar oxygen. He could probably be transferred to an intermediate care bed today.
[2017-12-10] MEDS: Levofloxacin 750 mg/D5W 500 MG in Premix Bag 1 BAG IVPB SCH (13:03)
--- NOTE | 2017-12-10 15:50 | PDOC.PN ---
- Subjective Encounter Start Date: 12/10/17 Encounter Start Time: 15:00 Patient is seen today, transfered from ICU to IMC, on Trach ventilation, pt deneis any chest pain or SOB. No cough, he says he had two BM today. - Objective MAR Reviewed: Yes Vital Signs & Weight: Vital Signs (12 hours) Temp Pulse Resp Pulse Ox 12/10/17 13:34 77 26 H 99 12/10/17 12:00 97.6 F 12/10/17 08:00 97.9 F 12/10/17 07:52 87 22 H 97 12/10/17 07:48 97.9 F 84 20 100 12/10/17 04:00 98.3 F Weight Admit Weight 287 lb 0.67 oz Weight 255 lb 8.252 oz Most Recent Monitor Data Heart Rate from ECG 63 NIBP 154/75 NIBP BP-Mean 95 Respiration from ECG 21 SpO2 100 I&O: 12/09/17 12/10/17 12/11/17 06:59 06:59 06:59 Intake Total 1261 2005 825 Output Total 725 1225 300 Balance 536 780 525 Result Diagrams: 12/07/17 06:57 12/10/17 04:02 Radiology Reviewed by me: Yes Phys Exam - Physical Examination HEENT: PERRLA, moist MMs Neck: no nodes, no JVD Respiratory: no rales, wheezing present Cardiovascular: RRR, no significant murmur Gastrointestinal: soft, non-tender Musculoskeletal: no edema, pulses present Neurological: non-focal, normal sensation Lymphatic: no nodes Psychiatric: normal affect, A&O x 3 Dx/Plan (1) Acute on chronic respiratory failure with hypoxia and hypercapnia Code(s): J96.21 - ACUTE AND CHRONIC RESPIRATORY FAILURE WITH HYPOXIA; J96.22 - ACUTE AND CHRONIC RESPIRATORY FAILURE WITH HYPERCAPNIA Status: Acute Comment : Improved now off of Vent on Trac with 4 liter, Continue with nebs and IV steroids per Dr. Bellamy. (2) COPD exacerbation Code(s): J44.1 - CHRONIC OBSTRUCTIVE PULMONARY DISEASE W (ACUTE) EXACERBATION Status: Acute Comment: improving. continue with IV steroids and nebs. (3) Anxiety and depression Code(s): F41.9 - ANXIETY DISORDER, UNSPECIFIED; F32.9 - MAJOR DEPRESSIVE DISORDER, SINGLE EPISODE, UNSPECIFIED Status: Chronic Comment: Improved will continue with PRN ativan. (4) Colon cancer metastasized to lung Code(s): C18.9 - MALIGNANT NEOPLASM OF COLON, UNSPECIFIED; C78.00 - SECONDARY MALIGNANT NEOPLASM OF UNSPECIFIED LUNG Status: Chronic Comment: Pt is Followed by oncology outpatient. (5) GERD (gastroesophageal reflux disease) Code(s): K21.9 - GASTRO-ESOPHAGEAL REFLUX DISEASE WITHOUT ESOPHAGITIS Status: Chronic Qualifiers: Esophagitis presence: esophagitis presence not specified Comment: Continue with PPI. (6) Hyperlipidemia Code(s): E78.5 - HYPERLIPIDEMIA, UNSPECIFIED Status: Chronic (7) Hypertension Code(s): I10 - ESSENTIAL (PRIMARY) HYPERTENSION Status: Chronic Qualifiers: Hypertension type: essential hypertension Comment: well controlled, at goal, <135/80. (8) Mass of lower lobe of left lung Code(s): R91.8 - OTHER NONSPECIFIC ABNORMAL FINDING OF LUNG FIELD Status: Chronic Comment: Follow Pulomonary/ Oncology remommedations. 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 - Discharge Day Encounter end time: 15:35 Review of Systems - Review of Systems Eyes: Pain, Vision Change ENT: Ear Pain, Ear Discharge Respiratory: Cough, Dry Cardiovascular: chest pain, palpitations Gastrointestinal: Nausea, Vomiting Genitourinary: Dysuria, Frequency Musculoskeletal: Neck Pain, Shoulder Pain Skin: Rash, Lesions Neurological: Weakness, Numbness - Medications/Allergies Allergies/Adverse Reactions: Allergies Allergy/AdvReac Type Severity Reaction Status Date / Time No Known Drug Allergies Allergy Verified 12/17/16 05:50 Medications: Current Medications Acetaminophen (Tylenol) 650 mg PO Q4H PRN PRN Reason: Headache/Fever or MILD Pain Albuterol/Ipratropium (Duoneb) 3 ml NEB [id number] [facility] Last Admin: 12/10/17 13:34 Dose: 3 ml Aspirin (Ecotrin) 81 mg PO DAILY [facility] Last Admin: 12/10/17 09:09 Dose: 81 mg Carvedilol (Coreg) 3.125 mg PO BID [facility] Last Admin: 12/10/17 08:40 Dose: 3.125 mg Citalopram Hydrobromide (Celexa) 20 mg PO DAILY [facility] Last Admin: 12/10/17 08:40 Dose: 20 mg Enoxaparin Sodium (Lovenox) 40 mg SC 0900 [facility] Last Admin: 12/10/17 08:40 Dose: 40 mg Famotidine (Pepcid) 20 mg PO Q12HR [facility] Last Admin: 12/10/17 08:40 Dose: 20 mg Gabapentin (Neurontin) 100 mg PO TID [facility] Last Admin: 12/10/17 15:44 Dose: 100 mg Guaifenesin (Mucinex) 600 mg PO Q6HR [facility] Last Admin: 12/10/17 13:03 Dose: 600 mg Levofloxacin 500 mg/ Device 100 mls @ 100 mls/hr IVPB 1200 [facility] Last Admin: 12/10/17 13:03 Dose: 100 mls Sodium Chloride (Normal Saline 0.9%) 1,000 mls @ 50 mls/hr IV .Q20H [facility] Last Admin: 12/10/17 06:03 Dose: 1,000 mls Potassium Chloride 40 meq/ (Sodium Chloride) 270 mls @ 135 mls/hr IVPB ASDIR PRN PRN Reason: FOR SERUM K+ 2.5 - 3.5 Potassium Chloride 40 meq/ (Device) 100 mls @ 50 mls/hr IVPB ASDIR PRN PRN Reason: FOR SERUM K+ 2.5 - 3.5 Magnesium Sulfate 1 gm/ Sodium (Chloride) 102 mls @ 102 mls/hr IV PRN PRN PRN Reason: MAG LEVEL 1.4 - 2.0 Magnesium Sulfate 2 gm/ Device 100 mls @ 100 mls/hr IVPB ASDIR PRN PRN Reason: MAGNESIUM < 1.4 Potassium Phosphate 9 mmol/ (Sodium Chloride) 103 mls @ 25.75 mls/hr IVPB ASDIR PRN PRN Reason: Phosphate 1.0-1.8 Potassium Phosphate 12 mmol/ (Sodium Chloride) 254 mls @ 63.5 mls/hr IV ASDIR PRN PRN Reason: Serum phosphate 0.5-0.9 Potassium Phosphate 15 mmol/ (Sodium Chloride) 255 mls @ 63.75 mls/hr IV ASDIR PRN PRN Reason: Serum Phos < 0.5 Fentanyl Citrate 2,000 mcg/ (Sodium Chloride) 100 mls @ 0 mls/hr IV INF JIGNESH PRN Reason: As Directed Cefepime HCl 1 gm/Miscellaneous Medication 1 each/ Sterile Water 10 mls @ 120 mls/hr SLOW IVP 0600,1800 [facility] Last Admin: 12/10/17 06:02 Dose: 10 mls Lorazepam (Ativan) 2 mg SLOW IVP Q2H PRN PRN Reason: Anxiety to achieve Nieto 2-3 Stop: 01/05/18 13:43 Magnesium Oxide (Magnesium Oxide) 400 mg PO BIDPRN PRN PRN Reason: FOR SERUM MAG 1.4 - 2.0 Magnesium Oxide (Magnesium Oxide) 800 mg PO PRN PRN PRN Reason: FOR SERUM MAG < 1.4 Methylprednisolone Sodium Succinate (Solu-Medrol) 40 mg IVP Q6HR [facility] Last Admin: 12/10/17 13:03 Dose: 40 mg Miscellaneous Medication (Phos-Nak) 1 pkt PO TIDPRN PRN PRN Reason: FOR PHOS LEVEL 1.0 - 1.8 Miscellaneous Medication (Phos-Nak) 2 pkt PO TIDPRN PRN PRN Reason: FOR PHOS LEVEL 0.5 - 1.0 Morphine Sulfate (Morphine) 2 mg SLOW IVP Q2H PRN PRN Reason: Breakthrough pain Last Admin: 12/10/17 03:12 Dose: 2 mg Ondansetron HCl (Zofran) 4 mg IVP Q6H PRN PRN Reason: Nausea/Vomiting Last Admin: 12/08/17 20:21 Dose: 4 mg Polyethylene Glycol (Miralax) 17 gm PO DAILY [facility] Last Admin: 12/10/17 08:43 Dose: Not Given Potassium Chloride (K-Dur) 40 meq PO ASDIR PRN PRN Reason: FOR SERUM K+ 2.5 - 3.5 Potassium Chloride (Klor-Con) 40 meq PER TUBE ASDIR PRN PRN Reason: FOR SERUM K+ 2.5-3.5 Propofol (Diprivan) 1,000 mg IV INF PRN; Protocol PRN Reason: TO ACHIEVE NIETO SCORE 2-3 Stop: 01/05/18 13:43
[2017-12-11] MEDS: guaiFENesin ER 600 MG TAB PO SCH ×4 (00:14→17:43)
[2017-12-11] MEDS: Sodium Chloride 0.9% 1,000 ML IV SCH (03:35)
[2017-12-11] MEDS: Cefepime 1 GM, Admixture Fee 1 EACH in Sterile Water 10 ML SLOW IVP SCH (04:51)
[2017-12-11 05:02] LABS: Anion Gap 10 mmol/L (10-20); BUN (Urea Nitrogen) 28 mg/dL (8.4-25.7); Calc. Creatinine Clearance 167 mL/min (70-130); Calcium 8.9 mg/dL (7.8-10.44); Carbon Dioxide 36 mmol/L (23-31); Chloride 101 mmol/L (98-107); Estimated GFR-MDRD Greater than 90; Glucose 117 mg/dL (80-115); Potassium 4.8 mmol/L (3.5-5.1); Sodium 142 mmol/L (136-145)
[2017-12-11] MEDS: Gabapentin 100 MG CAP PO SCH ×3 (09:25→20:08)
[2017-12-11] MEDS: Carvedilol 3.125 MG TAB PO SCH ×2 (09:25→20:08)
[2017-12-11] MEDS: Polyethylene Glycol 3350 17 GM Packet PO SCH (09:25)
[2017-12-11] MEDS: Enoxaparin Sodium 40 MG/0.4 ML SYRINGE SC SCH (09:26)
[2017-12-11] MEDS: Famotidine 20 MG TAB PO SCH ×2 (09:26→20:08)
[2017-12-11] MEDS: Aspirin 81 mg Enteric Coated Tablet PO SCH (09:26)
[2017-12-11] MEDS: Citalopram 20 MG TAB PO SCH (09:26)
[2017-12-11] MEDS: Levofloxacin 750 mg/D5W 500 MG in Premix Bag 1 BAG IVPB SCH (12:05)
--- NOTE | 2017-12-11 13:51 | PDOC.PN ---
- Subjective Encounter Start Date: 12/11/17 Encounter Start Time: 12:30 Jennifer is seen today on High flow oxygen from his trach Collar, Pt is nonverbal because of Trach. He is stbale sitting on his chair. - Objective MAR Reviewed: Yes Vital Signs & Weight: Vital Signs (12 hours) Temp Pulse Resp BP Pulse Ox 12/11/17 11:00 98.0 F 73 20 137/66 100 12/11/17 08:54 98.1 F 82 22 H 140/69 92 L 12/11/17 07:31 66 16 100 12/11/17 04:20 98.0 F 63 20 148/73 H 98 Weight Admit Weight 287 lb 0.67 oz Weight 255 lb 8.252 oz Most Recent Monitor Data Heart Rate from ECG 63 NIBP 154/75 NIBP BP-Mean 95 Respiration from ECG 21 SpO2 100 I&O: 12/10/17 12/11/17 12/12/17 06:59 06:59 06:59 Intake Total 2004 2145 340 Output Total 1225 1050 Balance 780 1095 340 Result Diagrams: 12/07/17 06:57 12/11/17 04:11 Radiology Reviewed by me: Yes Phys Exam - Physical Examination HEENT: PERRLA, moist MMs Neck: no nodes, no JVD Respiratory: no rhonchi, wheezing present Cardiovascular: RRR, no significant murmur Gastrointestinal: soft, non-tender Musculoskeletal: pulses present, edema present Neurological: non-focal, normal sensation Lymphatic: no nodes Psychiatric: normal affect, A&O x 3 Dx/Plan (1) Acute on chronic respiratory failure with hypoxia and hypercapnia Code(s): J96.21 - ACUTE AND CHRONIC RESPIRATORY FAILURE WITH HYPOXIA; J96.22 - ACUTE AND CHRONIC RESPIRATORY FAILURE WITH HYPERCAPNIA Status: Acute Comment : Improved now off of Vent on Trac with 8 liter today, Continue with nebs and IV steroids per Dr. Bellamy. Danny Monitor for any decompensation. (2) COPD exacerbation Code(s): J44.1 - CHRONIC OBSTRUCTIVE PULMONARY DISEASE W (ACUTE) EXACERBATION Status: Acute Comment: improving. continue with IV steroids and nebs. (3) Anxiety and depression Code(s): F41.9 - ANXIETY DISORDER, UNSPECIFIED; F32.9 - MAJOR DEPRESSIVE DISORDER, SINGLE EPISODE, UNSPECIFIED Status: Chronic Comment: Improved will continue with PRN ativan. (4) Colon cancer metastasized to lung Code(s): C18.9 - MALIGNANT NEOPLASM OF COLON, UNSPECIFIED; C78.00 - SECONDARY MALIGNANT NEOPLASM OF UNSPECIFIED LUNG Status: Chronic Comment: Pt is Followed by oncology outpatient. (5) GERD (gastroesophageal reflux disease) Code(s): K21.9 - GASTRO-ESOPHAGEAL REFLUX DISEASE WITHOUT ESOPHAGITIS Status: Chronic Qualifiers: Esophagitis presence: esophagitis presence not specified Comment: Continue with PPI. (6) Hyperlipidemia Code(s): E78.5 - HYPERLIPIDEMIA, UNSPECIFIED Status: Chronic (7) Hypertension Code(s): I10 - ESSENTIAL (PRIMARY) HYPERTENSION Status: Chronic Qualifiers: Hypertension type: essential hypertension Comment: well controlled, at goal, <135/80. (8) Mass of lower lobe of left lung Code(s): R91.8 - OTHER NONSPECIFIC ABNORMAL FINDING OF LUNG FIELD Status: Chronic Comment: Follow Pulomonary/ Oncology remommedations. - Plan cont current plan of care, PT/OT, respiratory therapy, incentive spirometry, DVT proph w/lovenox * . - Discharge Day Encounter end time: 13:00 Review of Systems - Review of Systems Eyes: negative: Pain, Vision Change, Conjunctivae Inflammation, Eyelid Inflammation, Redness, Other ENT: negative: Ear Pain, Ear Discharge, Nose Pain, Nose Discharge, Nose Congestion, Mouth Pain, Mouth Swelling, Throat Pain, Throat Swelling, Other Respiratory: Cough, Shortness of Breath, SOB with Excertion, Wheezing Cardiovascular: negative: chest pain, palpitations, orthopnea, paroxysmal nocturnal dyspnea, edema, light headedness, other Gastrointestinal: negative: Nausea, Vomiting, Abdominal Pain, Diarrhea, Constipation, Melena, Hematochezia, Other Genitourinary: negative: Dysuria, Frequency, Incontinence, Hematuria, Retention , Other Musculoskeletal: negative: Neck Pain, Shoulder Pain, Arm Pain, Back Pain, Hand Pain, Leg Pain, Foot Pain, Other Skin: negative: Rash, Lesions, Rico, Bruising, Other - Medications/Allergies Allergies/Adverse Reactions: Allergies Allergy/AdvReac Type Severity Reaction Status Date / Time No Known Drug Allergies Allergy Verified 12/17/16 05:50 Medications: Current Medications Acetaminophen (Tylenol) 650 mg PO Q4H PRN PRN Reason: Headache/Fever or MILD Pain Albuterol/Ipratropium (Duoneb) 3 ml NEB [id number] [facility] Last Admin: 12/11/17 07:31 Dose: 3 ml Aspirin (Ecotrin) 81 mg PO DAILY [facility] Last Admin: 12/11/17 09:26 Dose: 81 mg Carvedilol (Coreg) 3.125 mg PO BID [facility] Last Admin: 12/11/17 09:25 Dose: 3.125 mg Citalopram Hydrobromide (Celexa) 20 mg PO DAILY [facility] Last Admin: 12/11/17 09:26 Dose: 20 mg Enoxaparin Sodium (Lovenox) 40 mg SC 0900 [facility] Last Admin: 12/11/17 09:26 Dose: 40 mg Famotidine (Pepcid) 20 mg PO Q12HR [facility] Last Admin: 12/11/17 09:26 Dose: 20 mg Gabapentin (Neurontin) 100 mg PO TID [facility] Last Admin: 12/11/17 09:25 Dose: 100 mg Guaifenesin (Mucinex) 600 mg PO Q6HR [facility] Last Admin: 12/11/17 12:05 Dose: 600 mg Levofloxacin 500 mg/ Device 100 mls @ 100 mls/hr IVPB 1200 [facility] Last Admin: 12/11/17 12:05 Dose: 100 mls Sodium Chloride (Normal Saline 0.9%) 1,000 mls @ 50 mls/hr IV .Q20H [facility] Last Admin: 12/11/17 03:35 Dose: 1,000 mls Potassium Chloride 40 meq/ (Sodium Chloride) 270 mls @ 135 mls/hr IVPB ASDIR PRN PRN Reason: FOR SERUM K+ 2.5 - 3.5 Potassium Chloride 40 meq/ (Device) 100 mls @ 50 mls/hr IVPB ASDIR PRN PRN Reason: FOR SERUM K+ 2.5 - 3.5 Magnesium Sulfate 1 gm/ Sodium (Chloride) 102 mls @ 102 mls/hr IV PRN PRN PRN Reason: MAG LEVEL 1.4 - 2.0 Magnesium Sulfate 2 gm/ Device 100 mls @ 100 mls/hr IVPB ASDIR PRN PRN Reason: MAGNESIUM < 1.4 Potassium Phosphate 9 mmol/ (Sodium Chloride) 103 mls @ 25.75 mls/hr IVPB ASDIR PRN PRN Reason: Phosphate 1.0-1.8 Potassium Phosphate 12 mmol/ (Sodium Chloride) 254 mls @ 63.5 mls/hr IV ASDIR PRN PRN Reason: Serum phosphate 0.5-0.9 Potassium Phosphate 15 mmol/ (Sodium Chloride) 255 mls @ 63.75 mls/hr IV ASDIR PRN PRN Reason: Serum Phos < 0.5 Fentanyl Citrate 2,000 mcg/ (Sodium Chloride) 100 mls @ 0 mls/hr IV INF JIGNESH PRN Reason: As Directed Cefepime HCl 1 gm/Miscellaneous Medication 1 each/ Sterile Water 10 mls @ 120 mls/hr SLOW IVP 0600,1800 [facility] Last Admin: 12/11/17 04:51 Dose: 10 mls Lorazepam (Ativan) 2 mg SLOW IVP Q2H PRN PRN Reason: Anxiety to achieve Nieto 2-3 Stop: 01/05/18 13:43 Magnesium Oxide (Magnesium Oxide) 400 mg PO BIDPRN PRN PRN Reason: FOR SERUM MAG 1.4 - 2.0 Magnesium Oxide (Magnesium Oxide) 800 mg PO PRN PRN PRN Reason: FOR SERUM MAG < 1.4 Methylprednisolone Sodium Succinate (Solu-Medrol) 40 mg IVP Q6HR [facility] Last Admin: 12/11/17 12:05 Dose: 40 mg Miscellaneous Medication (Phos-Nak) 1 pkt PO TIDPRN PRN PRN Reason: FOR PHOS LEVEL 1.0 - 1.8 Miscellaneous Medication (Phos-Nak) 2 pkt PO TIDPRN PRN PRN Reason: FOR PHOS LEVEL 0.5 - 1.0 Morphine Sulfate (Morphine) 2 mg SLOW IVP Q2H PRN PRN Reason: Breakthrough pain Last Admin: 12/11/17 09:26 Dose: 2 mg Ondansetron HCl (Zofran) 4 mg IVP Q6H PRN PRN Reason: Nausea/Vomiting Last Admin: 12/08/17 20:21 Dose: 4 mg Polyethylene Glycol (Miralax) 17 gm PO DAILY [facility] Last Admin: 12/11/17 09:25 Dose: 17 gm Potassium Chloride (K-Dur) 40 meq PO ASDIR PRN PRN Reason: FOR SERUM K+ 2.5 - 3.5 Potassium Chloride (Klor-Con) 40 meq PER TUBE ASDIR PRN PRN Reason: FOR SERUM K+ 2.5-3.5 Propofol (Diprivan) 1,000 mg IV INF PRN; Protocol PRN Reason: TO ACHIEVE NIETO SCORE 2-3 Stop: 01/05/18 13:43
--- NOTE | 2017-12-11 15:54 | PRG ---
DATE OF SERVICE: 12/11/2017 SUBJECTIVE: Jairo Haskins did well overnight. He is frustrated because he still has a cuffed tube i n and it is difficult to talk with a speaking valve, so we will change this out in the morning if he has a good night. PHYSICAL EXAMINATION: VITAL SIGNS: Stable. He is afebrile, heart rate is in the 70s, respiratory rate is 18, oximetry is 98% on trach collar, blood pressure 137/66. LUNGS: Have cleared out considerably compared to 3 days ago. He is almost back to his baseline. HEART: Regular rhythm. ABDOMEN: Soft. LABORATORY DATA: Sodium 142, potassium 4.8, chloride 101, bicarbonate 36, BUN 20, creatinine 0.76. IMPRESSION: 1. Status post respiratory failure with mechanical ventilation for 2 days for atelectasis and chroni c obstructive pulmonary disease exacerbation. 2. Acute on chronic respiratory failure on chronic oxygen. 3. Status post tracheostomy for sleep apnea. 4. History of colon cancer, resected. 5. History of adjuvant chemotherapy. 6. History of recurrent colon cancer in the lungs, he has declined chemotherapy again. 7. History of erythrocytosis secondary to untreated sleep apnea. 8. 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 PLAN: Switch him to a #6 fenestrated cuff-less Shiley tracheostomy. There is no reason to keep him on IV antibiotics. We will cutout his IV steroids as well and just place him on prednisone some reason propofol, still o n his medication sheet, this has been discontinued. Ativan will be discontinued as well intravenousl y as well as fentanyl.
[2017-12-12] MEDS: guaiFENesin ER 600 MG TAB PO SCH ×4 (00:07→17:41)
[2017-12-12 06:11] LABS: Anion Gap 8 mmol/L (10-20); BUN (Urea Nitrogen) 26 mg/dL (8.4-25.7); Calc. Creatinine Clearance 179 mL/min (70-130); Calcium 8.6 mg/dL (7.8-10.44); Carbon Dioxide 33 mmol/L (23-31); Chloride 103 mmol/L (98-107); Estimated GFR-MDRD Greater than 90; Glucose 91 mg/dL (80-115); Potassium 4.2 mmol/L (3.5-5.1); Sodium 140 mmol/L (136-145)
[2017-12-12] MEDS: Enoxaparin Sodium 40 MG/0.4 ML SYRINGE SC SCH (08:23)
[2017-12-12] MEDS: predniSONE 20 MG TAB PO SCH (08:24)
[2017-12-12] MEDS: Citalopram 20 MG TAB PO SCH (08:24)
[2017-12-12] MEDS: Famotidine 20 MG TAB PO SCH ×2 (08:24→20:16)
[2017-12-12] MEDS: Gabapentin 100 MG CAP PO SCH ×3 (08:25→20:16)
[2017-12-12] MEDS: Carvedilol 3.125 MG TAB PO SCH ×2 (08:25→20:16)
[2017-12-12] MEDS: Aspirin 81 mg Enteric Coated Tablet PO SCH (08:25)
[2017-12-12] MEDS: Polyethylene Glycol 3350 17 GM Packet PO SCH (08:25)
[2017-12-12] MEDS: Sodium Chloride 0.9% 1,000 ML IV SCH (10:05)
[2017-12-12] MEDS ORDERED: Furosemide 40 MG/4 ML VIAL IVP ONE (13:04)
[2017-12-12] MEDS ORDERED: Furosemide 100 MG/10 ML VIAL SLOW IVP SCH (13:15)
--- NOTE | 2017-12-12 17:30 | PRG ---
DATE OF SERVICE: 12/12/2017 SUBJECTIVE: Jairo Haskins said he is feeling better. A #6 cuff-less fenestrated, Shiley trach was at the bedside. I replaced his cuffed trach with #6 Rylee lay CFM. He said he instantly could breathe better. He prefers during the day breathe through his n ose and his nasal cannula with speaking valve on his trach, which is fine since his tracheostomy was placed for sleep apnea. Biggest problem is he always refuses to keep his humidity on his trach. He might actually be better off with a trach cap as supposed to speaking valve, since he would not keep humidity on his tracheost debbie device. PHYSICAL EXAMINATION: LUNGS: Still remarkable for faint wheezes. HEART: Regular rhythm. ABDOMEN: Soft. LABORATORY DATA: Sodium 140, potassium 4.2, chloride 103, bicarbonate 33, BUN 26, creatinine 0.7. IMPRESSION: 1. Respiratory failure, status post 2 days of mechanical ventilation. 2. Acute on chronic respiratory failure with chronic hypoxemia on oxygen at home. 3. Underlying obstructive lung disease. 4. Underlying severe sleep apnea treated with tracheostomy. 5. History of an inferior vena cava filter. 6. Recurrent metastatic colon cancer. PLAN: Continue care may be a candidate to go back to the assisted in 24-48 hours.
[2017-12-13] MEDS: guaiFENesin ER 600 MG TAB PO SCH ×4 (00:11→17:59)
[2017-12-13] MEDS: Acetaminophen 325 MG TAB PO PRN (00:13)
[2017-12-13 06:46] LABS: BUN (Urea Nitrogen) 25 mg/dL (8.4-25.7); Calc. Creatinine Clearance 185 mL/min (70-130); Calcium 8.6 mg/dL (7.8-10.44); Estimated GFR-MDRD Greater than 90; Glucose 87 mg/dL (80-115)
[2017-12-13 06:55] LABS: Anion Gap 11 mmol/L (10-20); Carbon Dioxide 36 mmol/L (23-31); Chloride 98 mmol/L (98-107); Potassium 3.8 mmol/L (3.5-5.1); Sodium 141 mmol/L (136-145)
[2017-12-13] MEDS: Famotidine 20 MG TAB PO SCH ×2 (07:43→20:59)
[2017-12-13] MEDS: Gabapentin 100 MG CAP PO SCH ×3 (07:43→20:59)
[2017-12-13] MEDS: Enoxaparin Sodium 40 MG/0.4 ML SYRINGE SC SCH (07:43)
[2017-12-13] MEDS: predniSONE 20 MG TAB PO SCH (07:43)
[2017-12-13] MEDS: Aspirin 81 mg Enteric Coated Tablet PO SCH (07:43)
[2017-12-13] MEDS: Polyethylene Glycol 3350 17 GM Packet PO SCH (07:43)
[2017-12-13] MEDS: Citalopram 20 MG TAB PO SCH (07:44)
[2017-12-13] MEDS: Carvedilol 3.125 MG TAB PO SCH ×2 (07:44→21:00)
[2017-12-13] MEDS ORDERED: Furosemide 100 MG/10 ML VIAL SLOW IVP SCH (09:30)
[2017-12-13] MEDS ORDERED: Furosemide 40 MG/4 ML VIAL IVP ONE (12:00)
--- NOTE | 2017-12-13 13:33 | PRG ---
DATE OF SERVICE: 12/13/2017 SUBJECTIVE: He sounded well overnight. We has discussion about tracheostomy and his humidified air at the correction. He tends to not wear that as I mention in multiple dictations. One option migh t be the cap his trachea during the day, so he has nasal cannula oxygen with humidity during the day and then he uncap his trachea at night and wears his trach collar when he is in bed. I would like to think this might decrease the frequency of his hospitalizations based on the result of mucous pluggi ng. Several years ago, he only had moderate obstructive PFTs. I placed the cap on him and we will see how he does with that. I have asked him not to sleep with th e cap on. PHYSICAL EXAMINATION: VITAL SIGNS: He is afebrile, heart rate is in the 60s, respiratory rate is 24, oximetry is 92 with c annula. LUNGS: Clear. HEART: Regular rhythm. ABDOMEN: Soft. IMPRESSION: 1. Chronic obstructive pulmonary disease exacerbation with respiratory failure, likely associated wi th mucus plugging secondary to not wearing tracheostomy humidity. 2. Deconditioning. 3. Obesity. 4. Sleep apnea treated with tracheostomy. 5. History of an inferior vena cava filter. 6. Volume overload with significant lower extremity edema on today's exam. He will be given Lasix a gain today. Intake and output was negative 0 yesterday. He has developed a little bit of an ana m losis with his diuresis yesterday, but this is okay. The remainder of his electrolytes are normal. He also has metastatic colon cancer that he has decided, he does not want to treated. He has a left lower lobe abnormality on radiograph that is interpreted as pneumonia, but this is a large mass with his metastatic colon cancer.
--- NOTE | 2017-12-13 14:24 | PDOC.PN ---
- Subjective Encounter Start Date: 12/12/17 Encounter Start Time: 10:00 Patient is seen today, alert and oriented. No other Concern noted,. pt remains on High flow oxygen. Chamnged his Tracheostomy Cuff. - Objective MAR Reviewed: Yes Vital Signs & Weight: Vital Signs (12 hours) Temp Pulse Resp BP BP Pulse Ox 12/13/17 12:00 98.3 F 88 22 H 126/64 94 L 12/13/17 08:23 92 L 12/13/17 08:17 83 24 H 92 L 12/13/17 07:20 97.8 F 66 19 100 12/13/17 07:18 97.8 F 66 19 138/74 100 12/13/17 04:30 98.5 F 56 L 20 144/58 H 100 Weight Admit Weight 287 lb 0.67 oz Weight 271 lb 4 oz Most Recent Monitor Data Heart Rate from ECG 63 NIBP 154/75 NIBP BP-Mean 95 Respiration from ECG 21 SpO2 100 I&O: 12/12/17 12/13/17 12/14/17 06:59 06:59 06:59 Intake Total 3120 2700 380 Output Total 750 4850 Balance 2370 -2150 380 Result Diagrams: 12/07/17 06:57 12/13/17 06:29 Radiology Reviewed by me: Yes Phys Exam - Physical Examination HEENT: PERRLA, moist MMs Neck: no nodes, no JVD Respiratory: no wheezing, no rales Cardiovascular: RRR, no significant murmur Gastrointestinal: soft, non-tender Musculoskeletal: no edema, pulses present Neurological: non-focal, normal sensation Lymphatic: no nodes Psychiatric: normal affect, A&O x 3 Skin: no rash, normal turgor Dx/Plan (1) Acute on chronic respiratory failure with hypoxia and hypercapnia Code(s): J96.21 - ACUTE AND CHRONIC RESPIRATORY FAILURE WITH HYPOXIA; J96.22 - ACUTE AND CHRONIC RESPIRATORY FAILURE WITH HYPERCAPNIA Status: Acute Comment : Improved now on Trac with 3 liter today, Continue with nebs and IV steroids per Dr. Bellamy. Danny Monitor for any decompensation. (2) COPD exacerbation Code(s): J44.1 - CHRONIC OBSTRUCTIVE PULMONARY DISEASE W (ACUTE) EXACERBATION Status: Acute Comment: improving. stop IV steroids and cont nebs prn (3) Anxiety and depression Code(s): F41.9 - ANXIETY DISORDER, UNSPECIFIED; F32.9 - MAJOR DEPRESSIVE DISORDER, SINGLE EPISODE, UNSPECIFIED Status: Chronic Comment: Improved will continue with PRN ativan. (4) Colon cancer metastasized to lung Code(s): C18.9 - MALIGNANT NEOPLASM OF COLON, UNSPECIFIED; C78.00 - SECONDARY MALIGNANT NEOPLASM OF UNSPECIFIED LUNG Status: Chronic Comment: Pt is Followed by oncology outpatient. (5) GERD (gastroesophageal reflux disease) Code(s): K21.9 - GASTRO-ESOPHAGEAL REFLUX DISEASE WITHOUT ESOPHAGITIS Status: Chronic Qualifiers: Esophagitis presence: esophagitis presence not specified Comment: Continue with PPI. (6) Hyperlipidemia Code(s): E78.5 - HYPERLIPIDEMIA, UNSPECIFIED Status: Chronic (7) Hypertension Code(s): I10 - ESSENTIAL (PRIMARY) HYPERTENSION Status: Chronic Qualifiers: Hypertension type: essential hypertension Comment: well controlled, at goal, <135/80. (8) Mass of lower lobe of left lung Code(s): R91.8 - OTHER NONSPECIFIC ABNORMAL FINDING OF LUNG FIELD Status: Chronic Comment: Follow Pulomonary/ Oncology remommedations. - Plan cont current plan of care, PT/OT, respiratory therapy, incentive spirometry, DVT proph w/lovenox * . - Discharge Day Encounter end time: 10:45 Review of Systems - Review of Systems Constitutional: negative: fever, chills, sweats, weakness, malaise, other Eyes: negative: Pain, Vision Change, Conjunctivae Inflammation, Eyelid Inflammation, Redness, Other ENT: negative: Ear Pain, Ear Discharge, Nose Pain, Nose Discharge, Nose Congestion, Mouth Pain, Mouth Swelling, Throat Pain, Throat Swelling, Other Respiratory: negative: Cough, Dry, Shortness of Breath, Hemoptysis, SOB with Excertion, Pleuritic Pain, Sputum, Wheezing Cardiovascular: negative: chest pain, palpitations, orthopnea, paroxysmal nocturnal dyspnea, edema, light headedness, other Gastrointestinal: negative: Nausea, Vomiting, Abdominal Pain, Diarrhea, Constipation, Melena, Hematochezia, Other Genitourinary: negative: Dysuria, Frequency, Incontinence, Hematuria, Retention , Other Musculoskeletal: negative: Neck Pain, Shoulder Pain, Arm Pain, Back Pain, Hand Pain, Leg Pain, Foot Pain, Other Skin: negative: Rash, Lesions, Rico, Bruising, Other - Medications/Allergies Allergies/Adverse Reactions: Allergies Allergy/AdvReac Type Severity Reaction Status Date / Time No Known Drug Allergies Allergy Verified 12/17/16 05:50 Medications: Current Medications Acetaminophen (Tylenol) 650 mg PO Q4H PRN PRN Reason: Headache/Fever or MILD Pain Last Admin: 12/13/17 00:13 Dose: 650 mg Albuterol/Ipratropium (Duoneb) 3 ml NEB [id number] [facility] Last Admin: 12/13/17 08:17 Dose: 3 ml Aspirin (Ecotrin) 81 mg PO DAILY [facility] Last Admin: 12/13/17 07:43 Dose: 81 mg Carvedilol (Coreg) 3.125 mg PO BID [facility] Last Admin: 12/13/17 07:44 Dose: 3.125 mg Citalopram Hydrobromide (Celexa) 20 mg PO DAILY [facility] Last Admin: 12/13/17 07:44 Dose: 20 mg Enoxaparin Sodium (Lovenox) 40 mg SC 0900 [facility] Last Admin: 12/13/17 07:43 Dose: 40 mg Famotidine (Pepcid) 20 mg PO Q12HR [facility] Last Admin: 12/13/17 07:43 Dose: 20 mg Gabapentin (Neurontin) 100 mg PO TID [facility] Last Admin: 12/13/17 07:43 Dose: 100 mg Guaifenesin (Mucinex) 600 mg PO Q6HR [facility] Last Admin: 12/13/17 12:41 Dose: 600 mg Potassium Chloride 40 meq/ (Sodium Chloride) 270 mls @ 135 mls/hr IVPB ASDIR PRN PRN Reason: FOR SERUM K+ 2.5 - 3.5 Potassium Chloride 40 meq/ (Device) 100 mls @ 50 mls/hr IVPB ASDIR PRN PRN Reason: FOR SERUM K+ 2.5 - 3.5 Magnesium Sulfate 1 gm/ Sodium (Chloride) 102 mls @ 102 mls/hr IV PRN PRN PRN Reason: MAG LEVEL 1.4 - 2.0 Magnesium Sulfate 2 gm/ Device 100 mls @ 100 mls/hr IVPB ASDIR PRN PRN Reason: MAGNESIUM < 1.4 Potassium Phosphate 9 mmol/ (Sodium Chloride) 103 mls @ 25.75 mls/hr IVPB ASDIR PRN PRN Reason: Phosphate 1.0-1.8 Potassium Phosphate 12 mmol/ (Sodium Chloride) 254 mls @ 63.5 mls/hr IV ASDIR PRN PRN Reason: Serum phosphate 0.5-0.9 Potassium Phosphate 15 mmol/ (Sodium Chloride) 255 mls @ 63.75 mls/hr IV ASDIR PRN PRN Reason: Serum Phos < 0.5 Magnesium Oxide (Magnesium Oxide) 400 mg PO BIDPRN PRN PRN Reason: FOR SERUM MAG 1.4 - 2.0 Magnesium Oxide (Magnesium Oxide) 800 mg PO PRN PRN PRN Reason: FOR SERUM MAG < 1.4 Miscellaneous Medication (Phos-Nak) 1 pkt PO TIDPRN PRN PRN Reason: FOR PHOS LEVEL 1.0 - 1.8 Miscellaneous Medication (Phos-Nak) 2 pkt PO TIDPRN PRN PRN Reason: FOR PHOS LEVEL 0.5 - 1.0 Morphine Sulfate (Morphine) 2 mg SLOW IVP Q2H PRN PRN Reason: Breakthrough pain Last Admin: 12/13/17 06:29 Dose: 2 mg Ondansetron HCl (Zofran) 4 mg IVP Q6H PRN PRN Reason: Nausea/Vomiting Last Admin: 12/08/17 20:21 Dose: 4 mg Polyethylene Glycol (Miralax) 17 gm PO DAILY [facility] Last Admin: 12/13/17 07:43 Dose: 17 gm Potassium Chloride (K-Dur) 40 meq PO ASDIR PRN PRN Reason: FOR SERUM K+ 2.5 - 3.5 Potassium Chloride (Klor-Con) 40 meq PER TUBE ASDIR PRN PRN Reason: FOR SERUM K+ 2.5-3.5 Prednisone (Prednisone) 40 mg PO QA-[facility] Last Admin: 12/13/17 07:43 Dose: 40 mg Sodium Chloride (Flush - Normal Saline) 10 ml IVF Q12HR [facility] Last Admin: 12/13/17 07:44 Dose: 10 ml Sodium Chloride (Flush - Normal Saline) 10 ml IVF PRN PRN PRN Reason: Saline Flush Last Admin: 12/12/17 14:08 Dose: 10 ml
--- NOTE | 2017-12-13 14:29 | PDOC.PN ---
- Subjective Encounter Start Date: 12/13/17 Encounter Start Time: 11:00 PAtient is seen today having a bowel moveemnt, No other concerns noted. - Objective MAR Reviewed: Yes Vital Signs & Weight: Vital Signs (12 hours) Temp Pulse Resp BP BP Pulse Ox 12/13/17 12:00 98.3 F 88 22 H 126/64 94 L 12/13/17 08:23 92 L 12/13/17 08:17 83 24 H 92 L 12/13/17 07:20 97.8 F 66 19 100 12/13/17 07:18 97.8 F 66 19 138/74 100 12/13/17 04:30 98.5 F 56 L 20 144/58 H 100 Weight Admit Weight 287 lb 0.67 oz Weight 271 lb 4 oz Most Recent Monitor Data Heart Rate from ECG 63 NIBP 154/75 NIBP BP-Mean 95 Respiration from ECG 21 SpO2 100 I&O: 12/12/17 12/13/17 12/14/17 06:59 06:59 06:59 Intake Total 3120 2700 380 Output Total 750 4850 Balance 2370 -2150 380 Result Diagrams: 12/07/17 06:57 12/13/17 06:29 Radiology Reviewed by me: Yes Phys Exam - Physical Examination HEENT: PERRLA, moist MMs Neck: no nodes, no JVD Respiratory: no wheezing, no rales Cardiovascular: RRR, no significant murmur Gastrointestinal: soft, non-tender Musculoskeletal: no edema, pulses present Psychiatric: normal affect, A&O x 3 Skin: no rash, normal turgor Dx/Plan (1) Acute on chronic respiratory failure with hypoxia and hypercapnia Code(s): J96.21 - ACUTE AND CHRONIC RESPIRATORY FAILURE WITH HYPOXIA; J96.22 - ACUTE AND CHRONIC RESPIRATORY FAILURE WITH HYPERCAPNIA Status: Acute Comment : Improved now on Trac with 2 liter NC today, Continue with nebs Prn (2) COPD exacerbation Code(s): J44.1 - CHRONIC OBSTRUCTIVE PULMONARY DISEASE W (ACUTE) EXACERBATION Status: Acute Comment: improving. stop IV steroids and cont nebs prn (3) Anxiety and depression Code(s): F41.9 - ANXIETY DISORDER, UNSPECIFIED; F32.9 - MAJOR DEPRESSIVE DISORDER, SINGLE EPISODE, UNSPECIFIED Status: Chronic Comment: Improved will continue with PRN ativan. (4) Colon cancer metastasized to lung Code(s): C18.9 - MALIGNANT NEOPLASM OF COLON, UNSPECIFIED; C78.00 - SECONDARY MALIGNANT NEOPLASM OF UNSPECIFIED LUNG Status: Chronic Comment: Pt is Followed by oncology outpatient. (5) GERD (gastroesophageal reflux disease) Code(s): K21.9 - GASTRO-ESOPHAGEAL REFLUX DISEASE WITHOUT ESOPHAGITIS Status: Chronic Qualifiers: Esophagitis presence: esophagitis presence not specified Comment: Continue with PPI. (6) Hyperlipidemia Code(s): E78.5 - HYPERLIPIDEMIA, UNSPECIFIED Status: Chronic (7) Hypertension Code(s): I10 - ESSENTIAL (PRIMARY) HYPERTENSION Status: Chronic Qualifiers: Hypertension type: essential hypertension Comment: well controlled, at goal, <135/80. (8) Mass of lower lobe of left lung Code(s): R91.8 - OTHER NONSPECIFIC ABNORMAL FINDING OF LUNG FIELD Status: Chronic Comment: Follow Pulomonary/ Oncology remommedations. - Plan cont current plan of care, PT/OT, social insurance adviser, respiratory therapy, incentive spirometry, DVT proph w/lovenox * . - Discharge Day Encounter end time: 11:35 Review of Systems - Review of Systems Constitutional: negative: fever, chills, sweats, weakness, malaise, other Eyes: negative: Pain, Vision Change, Conjunctivae Inflammation, Eyelid Inflammation, Redness, Other Respiratory: negative: Cough, Dry, Shortness of Breath, Hemoptysis, SOB with Excertion, Pleuritic Pain, Sputum, Wheezing Cardiovascular: negative: chest pain, palpitations, orthopnea, paroxysmal nocturnal dyspnea, edema, light headedness, other Gastrointestinal: negative: Nausea, Vomiting, Abdominal Pain, Diarrhea, Constipation, Melena, Hematochezia, Other Musculoskeletal: negative: Neck Pain, Shoulder Pain, Arm Pain, Back Pain, Hand Pain, Leg Pain, Foot Pain, Other Skin: negative: Rash, Lesions, Rico, Bruising, Other - Medications/Allergies Allergies/Adverse Reactions: Allergies Allergy/AdvReac Type Severity Reaction Status Date / Time No Known Drug Allergies Allergy Verified 12/17/16 05:50 Medications: Current Medications Acetaminophen (Tylenol) 650 mg PO Q4H PRN PRN Reason: Headache/Fever or MILD Pain Last Admin: 12/13/17 00:13 Dose: 650 mg Albuterol/Ipratropium (Duoneb) 3 ml NEB [id number] [facility] Last Admin: 12/13/17 08:17 Dose: 3 ml Aspirin (Ecotrin) 81 mg PO DAILY [facility] Last Admin: 12/13/17 07:43 Dose: 81 mg Carvedilol (Coreg) 3.125 mg PO BID [facility] Last Admin: 12/13/17 07:44 Dose: 3.125 mg Citalopram Hydrobromide (Celexa) 20 mg PO DAILY [facility] Last Admin: 12/13/17 07:44 Dose: 20 mg Enoxaparin Sodium (Lovenox) 40 mg SC 0900 [facility] Last Admin: 12/13/17 07:43 Dose: 40 mg Famotidine (Pepcid) 20 mg PO Q12HR [facility] Last Admin: 12/13/17 07:43 Dose: 20 mg Gabapentin (Neurontin) 100 mg PO TID [facility] Last Admin: 12/13/17 07:43 Dose: 100 mg Guaifenesin (Mucinex) 600 mg PO Q6HR [facility] Last Admin: 12/13/17 12:41 Dose: 600 mg Potassium Chloride 40 meq/ (Sodium Chloride) 270 mls @ 135 mls/hr IVPB ASDIR PRN PRN Reason: FOR SERUM K+ 2.5 - 3.5 Potassium Chloride 40 meq/ (Device) 100 mls @ 50 mls/hr IVPB ASDIR PRN PRN Reason: FOR SERUM K+ 2.5 - 3.5 Magnesium Sulfate 1 gm/ Sodium (Chloride) 102 mls @ 102 mls/hr IV PRN PRN PRN Reason: MAG LEVEL 1.4 - 2.0 Magnesium Sulfate 2 gm/ Device 100 mls @ 100 mls/hr IVPB ASDIR PRN PRN Reason: MAGNESIUM < 1.4 Potassium Phosphate 9 mmol/ (Sodium Chloride) 103 mls @ 25.75 mls/hr IVPB ASDIR PRN PRN Reason: Phosphate 1.0-1.8 Potassium Phosphate 12 mmol/ (Sodium Chloride) 254 mls @ 63.5 mls/hr IV ASDIR PRN PRN Reason: Serum phosphate 0.5-0.9 Potassium Phosphate 15 mmol/ (Sodium Chloride) 255 mls @ 63.75 mls/hr IV ASDIR PRN PRN Reason: Serum Phos < 0.5 Magnesium Oxide (Magnesium Oxide) 400 mg PO BIDPRN PRN PRN Reason: FOR SERUM MAG 1.4 - 2.0 Magnesium Oxide (Magnesium Oxide) 800 mg PO PRN PRN PRN Reason: FOR SERUM MAG < 1.4 Miscellaneous Medication (Phos-Nak) 1 pkt PO TIDPRN PRN PRN Reason: FOR PHOS LEVEL 1.0 - 1.8 Miscellaneous Medication (Phos-Nak) 2 pkt PO TIDPRN PRN PRN Reason: FOR PHOS LEVEL 0.5 - 1.0 Morphine Sulfate (Morphine) 2 mg SLOW IVP Q2H PRN PRN Reason: Breakthrough pain Last Admin: 12/13/17 06:29 Dose: 2 mg Ondansetron HCl (Zofran) 4 mg IVP Q6H PRN PRN Reason: Nausea/Vomiting Last Admin: 12/08/17 20:21 Dose: 4 mg Polyethylene Glycol (Miralax) 17 gm PO DAILY [facility] Last Admin: 12/13/17 07:43 Dose: 17 gm Potassium Chloride (K-Dur) 40 meq PO ASDIR PRN PRN Reason: FOR SERUM K+ 2.5 - 3.5 Potassium Chloride (Klor-Con) 40 meq PER TUBE ASDIR PRN PRN Reason: FOR SERUM K+ 2.5-3.5 Prednisone (Prednisone) 40 mg PO QAM-WM [facility] Last Admin: 12/13/17 07:43 Dose: 40 mg Sodium Chloride (Flush - Normal Saline) 10 ml IVF Q12HR [facility] Last Admin: 12/13/17 07:44 Dose: 10 ml Sodium Chloride (Flush - Normal Saline) 10 ml IVF PRN PRN PRN Reason: Saline Flush Last Admin: 12/12/17 14:08 Dose: 10 ml
[2017-12-14] MEDS: guaiFENesin ER 600 MG TAB PO SCH ×5 (00:02→23:06)
[2017-12-14 04:15] LABS: BUN (Urea Nitrogen) 25 mg/dL (8.4-25.7); Calc. Creatinine Clearance 175 mL/min (70-130); Calcium 9.2 mg/dL (7.8-10.44); Estimated GFR-MDRD Greater than 90; Glucose 87 mg/dL (80-115)
[2017-12-14 04:24] LABS: Anion Gap 20 mmol/L (10-20); Carbon Dioxide 30 mmol/L (23-31); Chloride 96 mmol/L (98-107); Potassium 3.5 mmol/L (3.5-5.1); Sodium 142 mmol/L (136-145)
[2017-12-14] MEDS ORDERED: Magnesium 2 GM/NS 0.9% 100 ML 2 GM in Premix Bag 1 BAG IVPB SCH (04:45)
[2017-12-14 05:10] LABS: Magnesium 2.4 mg/dL (1.6-2.6); Phosphorus 2.9 mg/dL (2.3-4.7)
[2017-12-14] MEDS: Enoxaparin Sodium 40 MG/0.4 ML SYRINGE SC SCH (09:13)
[2017-12-14] MEDS: Polyethylene Glycol 3350 17 GM Packet PO SCH (09:13)
[2017-12-14] MEDS: Famotidine 20 MG TAB PO SCH ×2 (09:14→20:07)
[2017-12-14] MEDS: Gabapentin 100 MG CAP PO SCH ×2 (09:14→14:47)
[2017-12-14] MEDS: Carvedilol 3.125 MG TAB PO SCH ×2 (09:15→20:07)
[2017-12-14] MEDS: Aspirin 81 mg Enteric Coated Tablet PO SCH (09:15)
[2017-12-14] MEDS: predniSONE 20 MG TAB PO SCH (09:15)
[2017-12-14] MEDS: Citalopram 20 MG TAB PO SCH (09:15)
[2017-12-14] MEDS ORDERED: Furosemide 100 MG/10 ML VIAL SLOW IVP SCH (11:00)
--- NOTE | 2017-12-14 11:19 | PRG ---
DATE OF SERVICE: 12/14/2017 SUBJECTIVE: The patient is complaining of pain in his arms and his legs. PHYSICAL EXAMINATION: VITAL SIGNS: Temperature is 98.2, pulse 87, respirations 20, O2 saturation 94%, on trach collar, blo od pressure 128/72, total intake for the last 24 hours is 1770, output 4275. Last weight listed on t he chart was 271. HEENT: Unremarkable. NECK: Trach in good position. LUNGS: Clear, but distant breath sounds. CARDIOVASCULAR: S1, S2 regular. ABDOMEN: Morbidly obese, soft. EXTREMITIES: A 2+ edema throughout. LABORATORY DATA: Sodium 142, potassium 3.5, chloride 96, CO2 30, BUN 25, creatinine 0.7, glucose 87. ASSESSMENT: 1. Chronic obstructive pulmonary disease with exacerbation. 2. Chronic respiratory failure. 3. Deconditioning. 4. Obesity. 5. History of IVC filter placement. 6. Volume overload with continued extreme edema. 7. Metastatic colon cancer. PLAN: In my opinion, he needs to continue aggressive diuresis. I will give him another dose of Lasi x today. Chemistry will be checked tomorrow. His prognosis is very poor.
[2017-12-14] MEDS: Acetaminophen 325 MG TAB PO PRN (11:54)
--- NOTE | 2017-12-14 13:24 | PDOC.PN ---
- Subjective Encounter Start Date: 12/14/17 Encounter Start Time: 09:30 patient is seen today, alert and oriented, He is breathing hard today. remains volume overloaded. - Objective MAR Reviewed: Yes Vital Signs & Weight: Vital Signs (12 hours) Temp Pulse Resp BP Pulse Ox 12/14/17 12:00 95 12/14/17 11:50 90 20 98 12/14/17 11:00 98.0 F 86 24 H 126/68 88 L 12/14/17 08:00 98.2 F 87 20 94 L 12/14/17 07:18 98.2 F 87 20 128/72 93 L 12/14/17 05:56 83 20 96 12/14/17 04:00 98.2 F 78 16 142/70 H 93 L Weight Admit Weight 287 lb 0.67 oz Weight 271 lb 4 oz Most Recent Monitor Data Heart Rate from ECG 63 NIBP 154/75 NIBP BP-Mean 95 Respiration from ECG 21 SpO2 100 I&O: 12/13/17 12/14/17 12/15/17 06:59 06:59 06:59 Intake Total 2700 1770 Output Total 4850 4275 Balance -2150 -2505 Result Diagrams: 12/07/17 06:57 12/14/17 03:30 Radiology Reviewed by me: Yes Phys Exam - Physical Examination HEENT: PERRLA, moist MMs Neck: no nodes, no JVD Respiratory: wheezing present (with rales lower lobes) Cardiovascular: RRR, no significant murmur Gastrointestinal: soft, non-tender Musculoskeletal: pulses present, edema present Neurological: non-focal, normal sensation Lymphatic: no nodes Psychiatric: normal affect, A&O x 3 Skin: no rash, normal turgor Dx/Plan (1) Acute on chronic respiratory failure with hypoxia and hypercapnia Code(s): J96.21 - ACUTE AND CHRONIC RESPIRATORY FAILURE WITH HYPOXIA; J96.22 - ACUTE AND CHRONIC RESPIRATORY FAILURE WITH HYPERCAPNIA Status: Acute Comment : Improved now on Trac with 2 liter NC today, Continue with nebs Prn (2) COPD exacerbation Code(s): J44.1 - CHRONIC OBSTRUCTIVE PULMONARY DISEASE W (ACUTE) EXACERBATION Status: Acute Comment: improving. stop IV steroids and cont nebs prn (3) Anxiety and depression Code(s): F41.9 - ANXIETY DISORDER, UNSPECIFIED; F32.9 - MAJOR DEPRESSIVE DISORDER, SINGLE EPISODE, UNSPECIFIED Status: Chronic Comment: Improved will continue with PRN ativan. (4) Colon cancer metastasized to lung Code(s): C18.9 - MALIGNANT NEOPLASM OF COLON, UNSPECIFIED; C78.00 - SECONDARY MALIGNANT NEOPLASM OF UNSPECIFIED LUNG Status: Chronic Comment: Pt is Followed by oncology outpatient. (5) GERD (gastroesophageal reflux disease) Code(s): K21.9 - GASTRO-ESOPHAGEAL REFLUX DISEASE WITHOUT ESOPHAGITIS Status: Chronic Qualifiers: Esophagitis presence: esophagitis presence not specified Comment: Continue with PPI. (6) Hyperlipidemia Code(s): E78.5 - HYPERLIPIDEMIA, UNSPECIFIED Status: Chronic (7) Hypertension Code(s): I10 - ESSENTIAL (PRIMARY) HYPERTENSION Status: Chronic Qualifiers: Hypertension type: essential hypertension Comment: well controlled, at goal, <135/80. (8) Mass of lower lobe of left lung Code(s): R91.8 - OTHER NONSPECIFIC ABNORMAL FINDING OF LUNG FIELD Status: Chronic Comment: Follow Pulomonary/ Oncology remommedations. (9) CHF exacerbation Code(s): I50.9 - HEART FAILURE, UNSPECIFIED Status: Acute Qualifiers: Heart failure type: diastolic Qualified Code(s): I50.33 - Acute on chronic diastolic (congestive) heart failure Comment: Will continue with Lasix, IV pt is on 60mg lasix BID, Echo done recently showed EF of 60%. - Plan cont current plan of care, PT/OT, social worker clinical, respiratory therapy, incentive spirometry, out of bed/ambulate, DVT proph w/lovenox * . - Discharge Day Encounter end time: 10:00 Review of Systems - Review of Systems Constitutional: negative: fever, chills, sweats, weakness, malaise, other Eyes: negative: Pain, Vision Change, Conjunctivae Inflammation, Eyelid Inflammation, Redness, Other ENT: negative: Ear Pain, Ear Discharge, Nose Pain, Nose Discharge, Nose Congestion, Mouth Pain, Mouth Swelling, Throat Pain, Throat Swelling, Other Respiratory: Shortness of Breath, SOB with Excertion, Wheezing Cardiovascular: orthopnea, edema, other Gastrointestinal: Nausea, Hematochezia Genitourinary: Dysuria Musculoskeletal: Neck Pain, Shoulder Pain Skin: Rash, Lesions Neurological: Weakness, Numbness - Medications/Allergies Allergies/Adverse Reactions: Allergies Allergy/AdvReac Type Severity Reaction Status Date / Time No Known Drug Allergies Allergy Verified 12/17/16 05:50 Medications: Current Medications Acetaminophen (Tylenol) 650 mg PO Q4H PRN PRN Reason: Headache/Fever or MILD Pain Last Admin: 12/14/17 11:54 Dose: 650 mg Albuterol/Ipratropium (Duoneb) 3 ml NEB [id number] [facility] Last Admin: 12/14/17 11:50 Dose: 3 ml Aspirin (Ecotrin) 81 mg PO DAILY [facility] Last Admin: 12/14/17 09:15 Dose: 81 mg Carvedilol (Coreg) 3.125 mg PO BID [facility] Last Admin: 12/14/17 09:15 Dose: 3.125 mg Citalopram Hydrobromide (Celexa) 20 mg PO DAILY [facility] Last Admin: 12/14/17 09:15 Dose: 20 mg Enoxaparin Sodium (Lovenox) 40 mg SC 0900 [facility] Last Admin: 12/14/17 09:13 Dose: 40 mg Famotidine (Pepcid) 20 mg PO Q12HR [facility] Last Admin: 12/14/17 09:14 Dose: 20 mg Gabapentin (Neurontin) 100 mg PO TID [facility] Last Admin: 12/14/17 09:14 Dose: 100 mg Guaifenesin (Mucinex) 600 mg PO Q6HR [facility] Last Admin: 12/14/17 11:42 Dose: 600 mg Potassium Chloride 40 meq/ (Sodium Chloride) 270 mls @ 135 mls/hr IVPB ASDIR PRN PRN Reason: FOR SERUM K+ 2.5 - 3.5 Potassium Chloride 40 meq/ (Device) 100 mls @ 50 mls/hr IVPB ASDIR PRN PRN Reason: FOR SERUM K+ 2.5 - 3.5 Magnesium Sulfate 1 gm/ Sodium (Chloride) 102 mls @ 102 mls/hr IV PRN PRN PRN Reason: MAG LEVEL 1.4 - 2.0 Magnesium Sulfate 2 gm/ Device 100 mls @ 100 mls/hr IVPB ASDIR PRN PRN Reason: MAGNESIUM < 1.4 Potassium Phosphate 9 mmol/ (Sodium Chloride) 103 mls @ 25.75 mls/hr IVPB ASDIR PRN PRN Reason: Phosphate 1.0-1.8 Potassium Phosphate 12 mmol/ (Sodium Chloride) 254 mls @ 63.5 mls/hr IV ASDIR PRN PRN Reason: Serum phosphate 0.5-0.9 Potassium Phosphate 15 mmol/ (Sodium Chloride) 255 mls @ 63.75 mls/hr IV ASDIR PRN PRN Reason: Serum Phos < 0.5 Magnesium Oxide (Magnesium Oxide) 400 mg PO BIDPRN PRN PRN Reason: FOR SERUM MAG 1.4 - 2.0 Magnesium Oxide (Magnesium Oxide) 800 mg PO PRN PRN PRN Reason: FOR SERUM MAG < 1.4 Miscellaneous Medication (Phos-Nak) 1 pkt PO TIDPRN PRN PRN Reason: FOR PHOS LEVEL 1.0 - 1.8 Miscellaneous Medication (Phos-Nak) 2 pkt PO TIDPRN PRN PRN Reason: FOR PHOS LEVEL 0.5 - 1.0 Morphine Sulfate (Morphine) 2 mg SLOW IVP Q2H PRN PRN Reason: Breakthrough pain Last Admin: 12/14/17 03:37 Dose: 2 mg Ondansetron HCl (Zofran) 4 mg IVP Q6H PRN PRN Reason: Nausea/Vomiting Last Admin: 12/08/17 20:21 Dose: 4 mg Polyethylene Glycol (Miralax) 17 gm PO DAILY [facility] Last Admin: 12/14/17 09:13 Dose: 17 gm Potassium Chloride (K-Dur) 40 meq PO ASDIR PRN PRN Reason: FOR SERUM K+ 2.5 - 3.5 Potassium Chloride (Klor-Con) 40 meq PER TUBE ASDIR PRN PRN Reason: FOR SERUM K+ 2.5-3.5 Prednisone (Prednisone) 40 mg PO [facility] Last Admin: 12/14/17 09:15 Dose: 40 mg Sodium Chloride (Flush - Normal Saline) 10 ml IVF Q12HR [facility] Last Admin: 12/14/17 09:16 Dose: 10 ml Sodium Chloride (Flush - Normal Saline) 10 ml IVF PRN PRN PRN Reason: Saline Flush Last Admin: 12/13/17 18:01 Dose: 10 ml
--- NOTE | 2017-12-14 18:03 | EKG ---
Test Reason : Blood Pressure : / mmHG Vent. Rate : 119 BPM Atrial Rate : 119 BPM P-R Int : 156 ms QRS Dur : 096 ms QT Int : 344 ms P-R-T Axes : 055 124 038 degrees QTc Int : 483 ms Sinus tachycardia Possible Left atrial enlargement Right axis deviation Incomplete right bundle branch block Right ventricular hypertrophy with repolarization abnormality Cannot rule out Inferior infarct , age undetermined Abnormal ECG Confirmed by CHICO KHAN, DO ([id number]), medical editor NAMRATA RUSH ([id number]) on 12/14/2017 6:03:16 PM Referred By: Confirmed By:DO GOLDEN MD
[2017-12-14] MEDS: Gabapentin 300 MG CAP PO SCH (20:07)
[2017-12-14] MEDS: traZODone HCl 50 MG TAB PO SCH (20:08)
[2017-12-15] MEDS: guaiFENesin ER 600 MG TAB PO SCH ×4 (05:41→23:34)
[2017-12-15 07:14] LABS: Anion Gap 11 mmol/L (10-20); BUN (Urea Nitrogen) 24 mg/dL (8.4-25.7); Calc. Creatinine Clearance 169 mL/min (70-130); Calcium 8.6 mg/dL (7.8-10.44); Carbon Dioxide 36 mmol/L (23-31); Chloride 96 mmol/L (98-107); Estimated GFR-MDRD Greater than 90; Glucose 92 mg/dL (80-115); Magnesium 2.2 mg/dL (1.6-2.6); Potassium 3.5 mmol/L (3.5-5.1); Sodium 139 mmol/L (136-145)
--- NOTE | 2017-12-15 10:03 | PRG ---
DATE OF SERVICE: 12/15/2017 SUBJECTIVE: Mr. Haskins is doing okay. He has been clean out his tracheostomy because he had excess secretions. OBJECTIVE: VITAL SIGNS: Temperature 98.9, pulse 83, respirations 19, O2 sat 96% on trach collar, blood pressure 141/66. HEENT: Unremarkable. NECK: No JVD. Trach is in good position. It was full of copious thick secretions. CARDIAC: S1 and S2 regular. LUNGS: Coarse breath sounds. ABDOMEN: Soft, obese. EXTREMITIES: No edema. ASSESSMENT: 1. Chronic obstructive pulmonary disease with exacerbation. 2. Chronic respiratory failure, requiring tracheostomy placement. 3. Deconditioning. 4. Obesity. 5. History of inferior vena cava filter placement. 6. History of metastatic colon cancer. PLAN: This is a tough situation as this is unlikely to improve much with time. I think that [facility] may need to get involved in his situation. I have reviewed his medication list and agree. I think he would do better with continued daily dose of diuretic.
[2017-12-15] MEDS: Carvedilol 3.125 MG TAB PO SCH ×2 (10:07→20:50)
[2017-12-15] MEDS: Citalopram 20 MG TAB PO SCH (10:07)
[2017-12-15] MEDS: Enoxaparin Sodium 40 MG/0.4 ML SYRINGE SC SCH (10:07)
[2017-12-15] MEDS: predniSONE 20 MG TAB PO SCH (10:07)
[2017-12-15] MEDS: Aspirin 81 mg Enteric Coated Tablet PO SCH (10:07)
[2017-12-15] MEDS: Gabapentin 300 MG CAP PO SCH ×3 (10:08→20:50)
[2017-12-15] MEDS: Polyethylene Glycol 3350 17 GM Packet PO SCH (10:08)
[2017-12-15] MEDS: Famotidine 20 MG TAB PO SCH ×2 (10:08→20:50)
[2017-12-15] MEDS ORDERED: Furosemide 40 MG TAB PO SCH (12:00)
--- NOTE | 2017-12-15 15:46 | PDOC.PN ---
- Subjective Encounter Start Date: 12/15/17 Encounter Start Time: 14:00 Patient is seen today, lying in his bed, very drowsy and sleepy, Pt is on oxygen and is in mild resp distress. - Objective MAR Reviewed: Yes Vital Signs & Weight: Vital Signs (12 hours) Temp Pulse Resp BP BP Pulse Ox 12/15/17 15:39 98.7 F 73 19 119/50 L 98 12/15/17 11:30 71 18 98 12/15/17 11:14 68 20 122/51 L 94 L 12/15/17 07:45 98.9 F 83 19 96 12/15/17 07:24 98.9 F 83 19 141/66 H 90 L 12/15/17 06:00 93 L 12/15/17 05:51 81 18 98 12/15/17 03:51 98.4 F 77 18 126/52 L 90 L Weight Admit Weight 287 lb 0.67 oz Weight 258 lb 4.8 oz Most Recent Monitor Data Heart Rate from ECG 63 NIBP 154/75 NIBP BP-Mean 95 Respiration from ECG 21 SpO2 100 I&O: 12/14/17 12/15/17 12/16/17 06:59 06:59 06:59 Intake Total 1770 1147 Output Total 4275 2550 Balance -2505 -1403 Result Diagrams: 12/07/17 06:57 12/15/17 06:46 Radiology Reviewed by me: Yes Phys Exam - Physical Examination HEENT: PERRLA, moist MMs Neck: no nodes, no JVD Respiratory: wheezing present Crackles noted bilateral on Auscultation Cardiovascular: RRR Gastrointestinal: non-tender, no distention Musculoskeletal: pulses present, edema present Dx/Plan (1) Acute on chronic respiratory failure with hypoxia and hypercapnia Code(s): J96.21 - ACUTE AND CHRONIC RESPIRATORY FAILURE WITH HYPOXIA; J96.22 - ACUTE AND CHRONIC RESPIRATORY FAILURE WITH HYPERCAPNIA Status: Acute Comment : Improved now on Trac with 2 liter NC today, Continue with nebs Prn (2) COPD exacerbation Code(s): J44.1 - CHRONIC OBSTRUCTIVE PULMONARY DISEASE W (ACUTE) EXACERBATION Status: Acute Comment: improving. stop IV steroids and cont nebs prn (3) Anxiety and depression Code(s): F41.9 - ANXIETY DISORDER, UNSPECIFIED; F32.9 - MAJOR DEPRESSIVE DISORDER, SINGLE EPISODE, UNSPECIFIED Status: Chronic Comment: Improved will continue with PRN ativan. (4) Colon cancer metastasized to lung Code(s): C18.9 - MALIGNANT NEOPLASM OF COLON, UNSPECIFIED; C78.00 - SECONDARY MALIGNANT NEOPLASM OF UNSPECIFIED LUNG Status: Chronic Comment: Pt is Followed by oncology outpatient. (5) GERD (gastroesophageal reflux disease) Code(s): K21.9 - GASTRO-ESOPHAGEAL REFLUX DISEASE WITHOUT ESOPHAGITIS Status: Chronic Qualifiers: Esophagitis presence: esophagitis presence not specified Comment: Continue with PPI. (6) Hyperlipidemia Code(s): E78.5 - HYPERLIPIDEMIA, UNSPECIFIED Status: Chronic (7) Hypertension Code(s): I10 - ESSENTIAL (PRIMARY) HYPERTENSION Status: Chronic Qualifiers: Hypertension type: essential hypertension Comment: well controlled, at goal, <135/80. (8) Mass of lower lobe of left lung Code(s): R91.8 - OTHER NONSPECIFIC ABNORMAL FINDING OF LUNG FIELD Status: Chronic Comment: Follow Pulomonary/ Oncology remommedations. (9) CHF exacerbation Code(s): I50.9 - HEART FAILURE, UNSPECIFIED Status: Acute Qualifiers: Heart failure type: diastolic Qualified Code(s): I50.33 - Acute on chronic diastolic (congestive) heart failure Comment: Will continue with Lasix, IV pt is on 60mg lasix BID, Echo done recently showed EF of 60%. Pt will need good diuresis. Will clsoley monitor for any developement of resp Alkalosis. - Plan cont current plan of care, respiratory therapy, incentive spirometry, DVT proph w/lovenox * . - Discharge Day Encounter end time: 14:30 Review of Systems - Review of Systems Other: Unable to Obtain, as pt is very lethargic and Sleeping comfortab;ly - Medications/Allergies Allergies/Adverse Reactions: Allergies Allergy/AdvReac Type Severity Reaction Status Date / Time No Known Drug Allergies Allergy Verified 12/17/16 05:50 Medications: Current Medications Acetaminophen (Tylenol) 650 mg PO Q4H PRN PRN Reason: Headache/Fever or MILD Pain Last Admin: 12/14/17 11:54 Dose: 650 mg Albuterol/Ipratropium (Duoneb) 3 ml NEB [id number] JIGNESH Last Admin: 12/15/17 11:30 Dose: 3 ml Aspirin (Ecotrin) 81 mg PO DAILY JIGNESH Last Admin: 12/15/17 10:07 Dose: 81 mg Carvedilol (Coreg) 3.125 mg PO BID [facility] Last Admin: 12/15/17 10:07 Dose: 3.125 mg Citalopram Hydrobromide (Celexa) 20 mg PO DAILY [facility] Last Admin: 12/15/17 10:07 Dose: 20 mg Enoxaparin Sodium (Lovenox) 40 mg SC 0900 [facility] Last Admin: 12/15/17 10:07 Dose: 40 mg Famotidine (Pepcid) 20 mg PO Q12HR [facility] Last Admin: 12/15/17 10:08 Dose: 20 mg Furosemide (Lasix) 40 mg PO DAILY [facility] Gabapentin (Neurontin) 300 mg PO TID [facility] Last Admin: 12/15/17 10:08 Dose: 300 mg Guaifenesin (Mucinex) 600 mg PO Q6HR [facility] Last Admin: 12/15/17 13:50 Dose: 600 mg Potassium Chloride 40 meq/ (Sodium Chloride) 270 mls @ 135 mls/hr IVPB ASDIR PRN PRN Reason: FOR SERUM K+ 2.5 - 3.5 Potassium Chloride 40 meq/ (Device) 100 mls @ 50 mls/hr IVPB ASDIR PRN PRN Reason: FOR SERUM K+ 2.5 - 3.5 Magnesium Sulfate 1 gm/ Sodium (Chloride) 102 mls @ 102 mls/hr IV PRN PRN PRN Reason: MAG LEVEL 1.4 - 2.0 Magnesium Sulfate 2 gm/ Device 100 mls @ 100 mls/hr IVPB ASDIR PRN PRN Reason: MAGNESIUM < 1.4 Potassium Phosphate 9 mmol/ (Sodium Chloride) 103 mls @ 25.75 mls/hr IVPB ASDIR PRN PRN Reason: Phosphate 1.0-1.8 Potassium Phosphate 12 mmol/ (Sodium Chloride) 254 mls @ 63.5 mls/hr IV ASDIR PRN PRN Reason: Serum phosphate 0.5-0.9 Potassium Phosphate 15 mmol/ (Sodium Chloride) 255 mls @ 63.75 mls/hr IV ASDIR PRN PRN Reason: Serum Phos < 0.5 Magnesium Oxide (Magnesium Oxide) 400 mg PO BIDPRN PRN PRN Reason: FOR SERUM MAG 1.4 - 2.0 Magnesium Oxide (Magnesium Oxide) 800 mg PO PRN PRN PRN Reason: FOR SERUM MAG < 1.4 Miscellaneous Medication (Phos-Nak) 1 pkt PO TIDPRN PRN PRN Reason: FOR PHOS LEVEL 1.0 - 1.8 Miscellaneous Medication (Phos-Nak) 2 pkt PO TIDPRN PRN PRN Reason: FOR PHOS LEVEL 0.5 - 1.0 Morphine Sulfate (Morphine) 2 mg SLOW IVP Q2H PRN PRN Reason: Breakthrough pain Last Admin: 12/14/17 23:11 Dose: 2 mg Ondansetron HCl (Zofran) 4 mg IVP Q6H PRN PRN Reason: Nausea/Vomiting Last Admin: 12/08/17 20:21 Dose: 4 mg Polyethylene Glycol (Miralax) 17 gm PO DAILY [facility] Last Admin: 12/15/17 10:08 Dose: 17 gm Potassium Chloride (K-Dur) 40 meq PO ASDIR PRN PRN Reason: FOR SERUM K+ 2.5 - 3.5 Potassium Chloride (Klor-Con) 40 meq PER TUBE ASDIR PRN PRN Reason: FOR SERUM K+ 2.5-3.5 Prednisone (Prednisone) 40 mg PO QAM-WM [facility] Last Admin: 12/15/17 10:07 Dose: 40 mg Sodium Chloride (Flush - Normal Saline) 10 ml IVF Q12HR [facility] Last Admin: 12/15/17 10:08 Dose: 10 ml Sodium Chloride (Flush - Normal Saline) 10 ml IVF PRN PRN PRN Reason: Saline Flush Last Admin: 12/13/17 18:01 Dose: 10 ml Trazodone HCl (Desyrel) 50 mg PO HS [facility] Last Admin: 12/14/17 20:08 Dose: 50 mg
[2017-12-15] MEDS: Acetaminophen 325 MG TAB PO PRN (20:50)
[2017-12-15] MEDS: traZODone HCl 50 MG TAB PO SCH (20:50)
[2017-12-16 04:21] LABS: Anion Gap 11 mmol/L (10-20); BUN (Urea Nitrogen) 22 mg/dL (8.4-25.7); Calc. Creatinine Clearance 174 mL/min (70-130); Calcium 8.6 mg/dL (7.8-10.44); Carbon Dioxide 34 mmol/L (23-31); Chloride 99 mmol/L (98-107); Estimated GFR-MDRD Greater than 90; Glucose 84 mg/dL (80-115); Potassium 3.8 mmol/L (3.5-5.1); Sodium 140 mmol/L (136-145)
[2017-12-16] MEDS: guaiFENesin ER 600 MG TAB PO SCH ×4 (05:47→23:29)
[2017-12-16] MEDS: predniSONE 20 MG TAB PO SCH (10:29)
[2017-12-16] MEDS: Aspirin 81 mg Enteric Coated Tablet PO SCH (10:29)
[2017-12-16] MEDS: Gabapentin 300 MG CAP PO SCH ×3 (10:30→21:49)
[2017-12-16] MEDS: Carvedilol 3.125 MG TAB PO SCH ×2 (10:30→21:48)
[2017-12-16] MEDS: Furosemide 40 MG TAB PO SCH (10:30)
[2017-12-16] MEDS: Enoxaparin Sodium 40 MG/0.4 ML SYRINGE SC SCH (10:30)
[2017-12-16] MEDS: Famotidine 20 MG TAB PO SCH ×2 (10:30→21:48)
[2017-12-16] MEDS: Citalopram 20 MG TAB PO SCH (10:30)
[2017-12-16] MEDS: Polyethylene Glycol 3350 17 GM Packet PO SCH (10:30)
[2017-12-16 10:58] LABS: #Eosinphils 0.1 thou/uL (0.0-0.7); #Lymphocytes 1.6 thou/uL (1.20-3.40); #Monocytes 1.1 thou/uL (0.11-0.59); #Neutrophils 7.5 thou/uL (1.40-6.50); %Basophils 0.2 % (0.0-1.0); %Eosinophils 1.4 % (0.0-10.0); %Lymphocytes 15.9 % (21.0-51.0); %Monocytes 10.2 % (0.0-10.0); %Neutrophils 72.4 % (42.0-75.0); Hemoglobin 13.3 g/dL (14.0-18.0); Mean Corpuscular HGB CONC 29.7 g/dL (32.0-36.0); Mean Corpuscular Hemoglobin 26.6 pg (27.0-31.0); Mean Corpuscular Volume 89.5 fl (80.0-94.0); Mean Platelet Volume 9.4 fL (7.4-10.4); Platelet Count 186 thou/uL (130-400); RBC Distribution Width 14.7 % (11.5-14.5); Red Blood Cell (RBC) Count 5.01 mill/uL (4.70-6.10); White Blood Cell (WBC) Count 10.3 thou/uL (4.8-10.8)
--- NOTE | 2017-12-16 16:11 | PRG ---
DATE OF SERVICE: 12/16/2017 SUBJECTIVE: Mr. Haskins is afebrile. OBJECTIVE: VITAL SIGNS: Heart rate in the 60s, respiratory rate 20, oximetry is 94 on a trach collar. Blood pr essure 90/53. LUNGS: Remarkable for wheezes. HEART: Regular rhythm. S1 and S2 are normal. ABDOMEN: Soft. Intake and output is positive 100 mL. LABORATORY DATA: White count 10.3, hemoglobin 13.3, platelets 186,000. Sodium 140, potassium 3.8, c hloride 99, bicarbonate 34, BUN 22, creatinine 0.74. IMPRESSION: 1. Chronic obstructive pulmonary disease exacerbation. 2. Status post tracheostomy for sleep apnea. 3. Obesity. 4. Metastatic recurrent colon cancer. 5. Deconditioning. 6. History of inferior vena cava filter. PLAN: Consider transfer [facility] to [facility] tomorrow. He still has clinical evidence of volume overload with pedal and pretibial edema that is mild. He sw itched to p.o. Lasix this weekend.
--- NOTE | 2017-12-16 16:37 | PDOC.PN ---
- Subjective Encounter Start Date: 12/16/17 Encounter Start Time: 08:30 Patient is alert and orienrted. Improved Work of breathing Noted, had good Diuresis, now on PO lasix. - Objective MAR Reviewed: Yes Vital Signs & Weight: Vital Signs (12 hours) Temp Pulse Resp BP BP Pulse Ox 12/16/17 13:41 65 20 94 L 12/16/17 12:00 98.3 F 74 18 90/53 L 96 12/16/17 07:53 97.9 F 67 20 95 12/16/17 07:43 98 12/16/17 07:41 67 20 97 12/16/17 07:10 98.1 F 69 18 108/44 L 94 L Weight Admit Weight 287 lb 0.67 oz Weight 260 lb 12.8 oz Most Recent Monitor Data Heart Rate from ECG 63 NIBP 154/75 NIBP BP-Mean 95 Respiration from ECG 21 SpO2 100 I&O: 12/15/17 12/16/17 12/17/17 06:59 06:59 06:59 Intake Total 1147 750 Output Total 2550 650 Balance -1403 100 Result Diagrams: 12/16/17 10:41 12/16/17 04:04 Radiology Reviewed by me: Yes Phys Exam - Physical Examination HEENT: PERRLA, moist MMs Neck: no nodes, no JVD Respiratory: no wheezing, no rales Cardiovascular: RRR, no significant murmur Gastrointestinal: soft, non-tender Musculoskeletal: pulses present, edema present Neurological: non-focal, normal sensation Lymphatic: no nodes Psychiatric: normal affect, A&O x 3 Dx/Plan (1) Acute on chronic respiratory failure with hypoxia and hypercapnia Code(s): J96.21 - ACUTE AND CHRONIC RESPIRATORY FAILURE WITH HYPOXIA; J96.22 - ACUTE AND CHRONIC RESPIRATORY FAILURE WITH HYPERCAPNIA Status: Acute Comment : Improved now on Trac with 2 liter NC today, Continue with nebs Prn (2) COPD exacerbation Code(s): J44.1 - CHRONIC OBSTRUCTIVE PULMONARY DISEASE W (ACUTE) EXACERBATION Status: Acute Comment: improving. stop IV steroids and cont nebs prn (3) Anxiety and depression Code(s): F41.9 - ANXIETY DISORDER, UNSPECIFIED; F32.9 - MAJOR DEPRESSIVE DISORDER, SINGLE EPISODE, UNSPECIFIED Status: Chronic Comment: Improved will continue with PRN ativan. (4) Colon cancer metastasized to lung Code(s): C18.9 - MALIGNANT NEOPLASM OF COLON, UNSPECIFIED; C78.00 - SECONDARY MALIGNANT NEOPLASM OF UNSPECIFIED LUNG Status: Chronic Comment: Pt is Followed by oncology outpatient. (5) GERD (gastroesophageal reflux disease) Code(s): K21.9 - GASTRO-ESOPHAGEAL REFLUX DISEASE WITHOUT ESOPHAGITIS Status: Chronic Qualifiers: Esophagitis presence: esophagitis presence not specified Comment: Continue with PPI. (6) Hyperlipidemia Code(s): E78.5 - HYPERLIPIDEMIA, UNSPECIFIED Status: Chronic (7) Hypertension Code(s): I10 - ESSENTIAL (PRIMARY) HYPERTENSION Status: Chronic Qualifiers: Hypertension type: essential hypertension Comment: well controlled, at goal, <135/80. (8) Mass of lower lobe of left lung Code(s): R91.8 - OTHER NONSPECIFIC ABNORMAL FINDING OF LUNG FIELD Status: Chronic Comment: Follow Pulomonary/ Oncology remommedations. (9) CHF exacerbation Code(s): I50.9 - HEART FAILURE, UNSPECIFIED Status: Acute Qualifiers: Heart failure type: diastolic Qualified Code(s): I50.33 - Acute on chronic diastolic (congestive) heart failure Comment: Will continue with Lasix,PO 40mg, Echo done recently showed EF of 60% . Liklely dischagre home soon. - Plan cont current plan of care, PT/OT, social media specialist, incentive spirometry, out of bed/ambulate, DVT proph w/lovenox * . - Discharge Day Encounter end time: 09:00 Review of Systems - Review of Systems Eyes: negative: Pain, Vision Change, Conjunctivae Inflammation, Eyelid Inflammation, Redness, Other ENT: negative: Ear Pain, Ear Discharge, Nose Pain, Nose Discharge, Nose Congestion, Mouth Pain, Mouth Swelling, Throat Pain, Throat Swelling, Other Respiratory: Wheezing. negative: Cough, Dry, Shortness of Breath, Hemoptysis, SOB with Excertion, Pleuritic Pain, Sputum Cardiovascular: negative: chest pain, palpitations, orthopnea, paroxysmal nocturnal dyspnea, edema, light headedness, other Gastrointestinal: negative: Nausea, Vomiting, Abdominal Pain, Diarrhea, Constipation, Melena, Hematochezia, Other Genitourinary: negative: Dysuria, Frequency, Incontinence, Hematuria, Retention , Other Musculoskeletal: negative: Neck Pain, Shoulder Pain, Arm Pain, Back Pain, Hand Pain, Leg Pain, Foot Pain, Other Skin: negative: Rash, Lesions, Rico, Bruising, Other - Medications/Allergies Allergies/Adverse Reactions: Allergies Allergy/AdvReac Type Severity Reaction Status Date / Time No Known Drug Allergies Allergy Verified 12/17/16 05:50 Medications: Current Medications Acetaminophen (Tylenol) 650 mg PO Q4H PRN PRN Reason: Headache/Fever or MILD Pain Last Admin: 12/15/17 20:50 Dose: 650 mg Albuterol/Ipratropium (Duoneb) 3 ml NEB [id number] [facility] Last Admin: 12/16/17 13:41 Dose: 3 ml Aspirin (Ecotrin) 81 mg PO DAILY [facility] Last Admin: 12/16/17 10:29 Dose: 81 mg Carvedilol (Coreg) 3.125 mg PO BID [facility] Last Admin: 12/16/17 10:30 Dose: 3.125 mg Citalopram Hydrobromide (Celexa) 20 mg PO DAILY [facility] Last Admin: 12/16/17 10:30 Dose: 20 mg Enoxaparin Sodium (Lovenox) 40 mg SC 0900 [facility] Last Admin: 12/16/17 10:30 Dose: 40 mg Famotidine (Pepcid) 20 mg PO Q12HR [facility] Last Admin: 12/16/17 10:30 Dose: 20 mg Furosemide (Lasix) 40 mg PO DAILY [facility] Last Admin: 12/16/17 10:30 Dose: 40 mg Gabapentin (Neurontin) 300 mg PO TID [facility] Last Admin: 12/16/17 10:30 Dose: 300 mg Guaifenesin (Mucinex) 600 mg PO Q6HR [facility] Last Admin: 12/16/17 12:58 Dose: 600 mg Potassium Chloride 40 meq/ (Sodium Chloride) 270 mls @ 135 mls/hr IVPB ASDIR PRN PRN Reason: FOR SERUM K+ 2.5 - 3.5 Potassium Chloride 40 meq/ (Device) 100 mls @ 50 mls/hr IVPB ASDIR PRN PRN Reason: FOR SERUM K+ 2.5 - 3.5 Magnesium Sulfate 1 gm/ Sodium (Chloride) 102 mls @ 102 mls/hr IV PRN PRN PRN Reason: MAG LEVEL 1.4 - 2.0 Magnesium Sulfate 2 gm/ Device 100 mls @ 100 mls/hr IVPB ASDIR PRN PRN Reason: MAGNESIUM < 1.4 Potassium Phosphate 9 mmol/ (Sodium Chloride) 103 mls @ 25.75 mls/hr IVPB ASDIR PRN PRN Reason: Phosphate 1.0-1.8 Potassium Phosphate 12 mmol/ (Sodium Chloride) 254 mls @ 63.5 mls/hr IV ASDIR PRN PRN Reason: Serum phosphate 0.5-0.9 Potassium Phosphate 15 mmol/ (Sodium Chloride) 255 mls @ 63.75 mls/hr IV ASDIR PRN PRN Reason: Serum Phos < 0.5 Magnesium Oxide (Magnesium Oxide) 400 mg PO BIDPRN PRN PRN Reason: FOR SERUM MAG 1.4 - 2.0 Magnesium Oxide (Magnesium Oxide) 800 mg PO PRN PRN PRN Reason: FOR SERUM MAG < 1.4 Miscellaneous Medication (Phos-Nak) 1 pkt PO TIDPRN PRN PRN Reason: FOR PHOS LEVEL 1.0 - 1.8 Miscellaneous Medication (Phos-Nak) 2 pkt PO TIDPRN PRN PRN Reason: FOR PHOS LEVEL 0.5 - 1.0 Morphine Sulfate (Morphine) 2 mg SLOW IVP Q2H PRN PRN Reason: Breakthrough pain Last Admin: 12/16/17 10:43 Dose: 2 mg Ondansetron HCl (Zofran) 4 mg IVP Q6H PRN PRN Reason: Nausea/Vomiting Last Admin: 12/08/17 20:21 Dose: 4 mg Polyethylene Glycol (Miralax) 17 gm PO DAILY [facility] Last Admin: 12/16/17 10:30 Dose: 17 gm Potassium Chloride (K-Dur) 40 meq PO ASDIR PRN PRN Reason: FOR SERUM K+ 2.5 - 3.5 Potassium Chloride (Klor-Con) 40 meq PER TUBE ASDIR PRN PRN Reason: FOR SERUM K+ 2.5-3.5 Prednisone (Prednisone) 40 mg PO QAM-[facility] Last Admin: 12/16/17 10:29 Dose: 40 mg Sodium Chloride (Flush - Normal Saline) 10 ml IVF Q12HR [facility] Last Admin: 12/16/17 10:31 Dose: 10 ml Sodium Chloride (Flush - Normal Saline) 10 ml IVF PRN PRN PRN Reason: Saline Flush Last Admin: 12/13/17 18:01 Dose: 10 ml Trazodone HCl (Desyrel) 50 mg PO HS [facility] Last Admin: 12/15/17 20:50 Dose: 50 mg
[2017-12-16] MEDS: traZODone HCl 50 MG TAB PO SCH (21:49)
[2017-12-17 04:44] LABS: Anion Gap 8 mmol/L (10-20); BUN (Urea Nitrogen) 17 mg/dL (8.4-25.7); Calc. Creatinine Clearance 180 mL/min (70-130); Calcium 8.8 mg/dL (7.8-10.44); Carbon Dioxide 36 mmol/L (23-31); Chloride 99 mmol/L (98-107); Estimated GFR-MDRD Greater than 90; Glucose 93 mg/dL (80-115); Potassium 3.8 mmol/L (3.5-5.1); Sodium 139 mmol/L (136-145)
[2017-12-17] MEDS: guaiFENesin ER 600 MG TAB PO SCH ×2 (06:32→14:16)
[2017-12-17] MEDS: Gabapentin 300 MG CAP PO SCH ×2 (08:48→14:16)
[2017-12-17] MEDS: Citalopram 20 MG TAB PO SCH (08:48)
[2017-12-17] MEDS: Carvedilol 3.125 MG TAB PO SCH (08:48)
[2017-12-17] MEDS: predniSONE 20 MG TAB PO SCH (08:48)
[2017-12-17] MEDS: Aspirin 81 mg Enteric Coated Tablet PO SCH (08:48)
[2017-12-17] MEDS: Furosemide 40 MG TAB PO SCH (08:49)
[2017-12-17] MEDS: Famotidine 20 MG TAB PO SCH (08:49)
[2017-12-17] MEDS: Enoxaparin Sodium 40 MG/0.4 ML SYRINGE SC SCH (08:49)
[2017-12-17] MEDS: Polyethylene Glycol 3350 17 GM Packet PO SCH (08:51)
--- NOTE | 2017-12-17 15:25 | PDOC.PN ---
- Subjective Encounter Start Date: 12/17/17 Encounter Start Time: 15:24 Subjective: nsg notes rev, [place] ovn, no new c/o - understands POC is for d/c -: states that he wishes he'd made different health decisions in the past, and -: wants to be aggressive about his care now - Objective Vital Signs & Weight: Vital Signs (12 hours) Temp Pulse Resp BP Pulse Ox 12/17/17 13:53 76 16 12/17/17 12:00 98.0 F 68 18 107/58 L 92 L 12/17/17 08:00 98.8 F 71 18 129/66 100 12/17/17 06:43 74 12/17/17 04:00 98.4 F 60 16 131/68 94 L Weight Admit Weight 287 lb 0.67 oz Weight 259 lb 1.6 oz Most Recent Monitor Data Heart Rate from ECG 63 NIBP 154/75 NIBP BP-Mean 95 Respiration from ECG 21 SpO2 100 I&O: 12/16/17 12/17/17 12/18/17 06:59 06:59 06:59 Intake Total 750 1775 Output Total 650 1710 Balance 100 65 Result Diagrams: 12/16/17 10:41 12/17/17 03:30 Phys Exam - Physical Examination Constitutional: NAD seated in chair HEENT: PERRLA, moist MMs, sclera anicteric mild conversational dyspnea on trach collar Respiratory: no wheezing, no rales, no rhonchi, clear to auscultation bilateral Cardiovascular: RRR, no significant murmur, no rub Psychiatric: normal affect, A&O x 3 Dx/Plan - Plan * Please see d/c summary Review of Systems - Medications/Allergies Allergies/Adverse Reactions: Allergies Allergy/AdvReac Type Severity Reaction Status Date / Time No Known Drug Allergies Allergy Verified 12/17/16 05:50 Medications: Current Medications Acetaminophen (Tylenol) 650 mg PO Q4H PRN PRN Reason: Headache/Fever or MILD Pain Last Admin: 12/15/17 20:50 Dose: 650 mg Albuterol/Ipratropium (Duoneb) 3 ml NEB [id number] JIGNESH Last Admin: 12/17/17 13:53 Dose: 3 ml Aspirin (Ecotrin) 81 mg PO DAILY [facility] Last Admin: 12/17/17 08:48 Dose: 81 mg Carvedilol (Coreg) 3.125 mg PO BID [facility] Last Admin: 12/17/17 08:48 Dose: 3.125 mg Citalopram Hydrobromide (Celexa) 20 mg PO DAILY [facility] Last Admin: 12/17/17 08:48 Dose: 20 mg Enoxaparin Sodium (Lovenox) 40 mg SC 0900 [facility] Last Admin: 12/17/17 08:49 Dose: 40 mg Famotidine (Pepcid) 20 mg PO Q12HR [facility] Last Admin: 12/17/17 08:49 Dose: 20 mg Furosemide (Lasix) 40 mg PO DAILY [facility] Last Admin: 12/17/17 08:49 Dose: 40 mg Gabapentin (Neurontin) 300 mg PO TID [facility] Last Admin: 12/17/17 14:16 Dose: 300 mg Guaifenesin (Mucinex) 600 mg PO Q6HR [facility] Last Admin: 12/17/17 14:16 Dose: 600 mg Potassium Chloride 40 meq/ (Sodium Chloride) 270 mls @ 135 mls/hr IVPB ASDIR PRN PRN Reason: FOR SERUM K+ 2.5 - 3.5 Potassium Chloride 40 meq/ (Device) 100 mls @ 50 mls/hr IVPB ASDIR PRN PRN Reason: FOR SERUM K+ 2.5 - 3.5 Magnesium Sulfate 1 gm/ Sodium (Chloride) 102 mls @ 102 mls/hr IV PRN PRN PRN Reason: MAG LEVEL 1.4 - 2.0 Magnesium Sulfate 2 gm/ Device 100 mls @ 100 mls/hr IVPB ASDIR PRN PRN Reason: MAGNESIUM < 1.4 Potassium Phosphate 9 mmol/ (Sodium Chloride) 103 mls @ 25.75 mls/hr IVPB ASDIR PRN PRN Reason: Phosphate 1.0-1.8 Potassium Phosphate 12 mmol/ (Sodium Chloride) 254 mls @ 63.5 mls/hr IV ASDIR PRN PRN Reason: Serum phosphate 0.5-0.9 Potassium Phosphate 15 mmol/ (Sodium Chloride) 255 mls @ 63.75 mls/hr IV ASDIR PRN PRN Reason: Serum Phos < 0.5 Magnesium Oxide (Magnesium Oxide) 400 mg PO BIDPRN PRN PRN Reason: FOR SERUM MAG 1.4 - 2.0 Magnesium Oxide (Magnesium Oxide) 800 mg PO PRN PRN PRN Reason: FOR SERUM MAG < 1.4 Miscellaneous Medication (Phos-Nak) 1 pkt PO TIDPRN PRN PRN Reason: FOR PHOS LEVEL 1.0 - 1.8 Miscellaneous Medication (Phos-Nak) 2 pkt PO TIDPRN PRN PRN Reason: FOR PHOS LEVEL 0.5 - 1.0 Morphine Sulfate (Morphine) 2 mg SLOW IVP Q2H PRN PRN Reason: Breakthrough pain Last Admin: 12/17/17 14:24 Dose: 2 mg Ondansetron HCl (Zofran) 4 mg IVP Q6H PRN PRN Reason: Nausea/Vomiting Last Admin: 12/08/17 20:21 Dose: 4 mg Polyethylene Glycol (Miralax) 17 gm PO DAILY [facility] Last Admin: 12/17/17 08:51 Dose: 17 gm Potassium Chloride (K-Dur) 40 meq PO ASDIR PRN PRN Reason: FOR SERUM K+ 2.5 - 3.5 Potassium Chloride (Klor-Con) 40 meq PER TUBE ASDIR PRN PRN Reason: FOR SERUM K+ 2.5-3.5 Prednisone (Prednisone) 40 mg PO QAM-[facility] Last Admin: 12/17/17 08:48 Dose: 40 mg Sodium Chloride (Flush - Normal Saline) 10 ml IVF Q12HR [facility] Last Admin: 12/17/17 14:17 Dose: 10 ml Sodium Chloride (Flush - Normal Saline) 10 ml IVF PRN PRN PRN Reason: Saline Flush Last Admin: 12/13/17 18:01 Dose: 10 ml Trazodone HCl (Desyrel) 50 mg PO HS [facility] Last Admin: 12/16/17 21:49 Dose: 50 mg
[2017-12-17 16:04] VITALS: BP 137/64; TEMP 99
--- NOTE | 2017-12-18 14:17 | DIS ---
DISCHARGE DIAGNOSES: 1. Acute on chronic hypercapnia. 2. Chronic obstructive pulmonary disease exacerbation 3. Pneumonia, left lower lobe. 4. Known history of metastatic colon cancer HOSPITAL COURSE: This is a 62-year-old who presented with shortness of breath. Please see the original history and physical for full details and findings. On admission, the patient was found to be hypoxic with pulse oximetry saturation 97% on trach collar. The patient had a known history of chronic respiratory failure, status post tracheostomy and dependent on a trach collar with known chronic obstructive pulmonary disease presenting with exacerbation. On this evaluation, he was found to have significant hypoxia and hypercapnia requiring mechanical ventilation during his hospitalization. At the time of discharge patient was stable from a respiratory support standpoint; however, he will continue with a tracheostomy collar. The patient was overall with very poor prognosis given his multiple comorbid factors. CONSULTATIONS: Pulmonary medicine and physical therapy. DISCHARGE MEDICATIONS: Please see the EMR for full details. Patient will continue on his home medications along with prednisone 40 mg which he will continue until he was seen by pulmonary on an outpatient basis to further determine his taper regimen and whether or not he needs to be on chronic corticosteroids. PHYSICAL EXAMINATION: VITAL SIGNS: Patient's condition at discharge, at the time of discharge patient 's vital signs are stable. Heart rate of 75, respirations 20, satting 93% on a trach collar, blood pressure 137/64, 99 degrees. GENERAL: Patient is awake, alert, appropriate, conversant, oriented x3. HEENT: Equal ocular motions are intact. Pupils are equal and reactive. Normocephalic, atraumatic. Trach collar site appears to be clean/dry/intact. CARDIOVASCULAR: S1, S2. RESPIRATORY: No overt wheezes, rales or rhonchi at this time. IMAGING: Please see the H and P for chest x-ray. LABORATORY: On 12/16/2017, , hemoglobin 13.3, hematocrit 44.9, platelets 186. Sodium 139, potassium 3.8, chloride 99, bicarbonate 36, BUN 17, creatinine 0.72, calcium 8.8. Thank you for asking me to care for your patient. Greater than 30 minutes spent coordinating discharge. Patient has overall poor prognosis. This was shared with the patient. VASU
== END 2017-12-17 17:10 | DRG 208 ==
LOC: ERS 11:37 → CCU 13:31 → IMCU/EMU 12-10 14:20
PROVIDERS: ADMIT Internal Medicine; ATTEND Internal Medicine
PROC: 0B21XFZ Change Tracheostomy Device in Trachea, External Approach (ICD-10-PCS; 2017-12-06)
PROC: 5A1945Z Respiratory Ventilation, 24-96 Consecutive Hours (ICD-10-PCS; 2017-12-06)
PROC: 0B21XFZ Change Tracheostomy Device in Trachea, External Approach (ICD-10-PCS; principal; 2017-12-12)
DX: J96.21 Acute and chronic respiratory failure with hypoxia (principal); I50.33 Acute on chronic diastolic (congestive) heart failure; Z93.0 Tracheostomy status; C78.00 Secondary malignant neoplasm of unspecified lung; C18.9 Malignant neoplasm of colon, unspecified; I11.0 Hypertensive heart disease with heart failure; J44.1 Chronic obstructive pulmonary disease with (acute) exacerbation; J98.11 Atelectasis; E66.01 Morbid (severe) obesity due to excess calories; J96.22 Acute and chronic respiratory failure with hypercapnia; Z87.891 Personal history of nicotine dependence; E78.5 Hyperlipidemia, unspecified; K21.9 Gastro-esophageal reflux disease without esophagitis; F41.9 Anxiety disorder, unspecified; F32.9 Major depressive disorder, single episode, unspecified; G47.33 Obstructive sleep apnea (adult) (pediatric); Z68.36 Body mass index [BMI] 36.0-36.9, adult
CPT/HCPCS: 36415; 36416; 71045; 80048; 80053; 82550; 82553; 82805; 83605; 83735; 84100; 84484; 85025; 87040; 87070; 87205; 93005; 94002; 94003; 94640; 94760; 96365; 96367; 96375; A4216; G9171-GN-CM; G9172-GN-CJ; J0692; J1650; J1956; J2060; J2270; J2405; J2543; J2704; J2920; J2930; J3370; J7050; J7611; J7620; J7626; S0028

== ENCOUNTER 2018-01-14 01:44 | Inpatient (IN) | payer OTHER ==
[2018-01-14 02:28] LABS: #Basophils 0.1 thou/uL (0.0-0.2); #Eosinphils 0.1 thou/uL (0.0-0.7); #Lymphocytes 1.7 thou/uL (1.20-3.40); #Monocytes 1.2 thou/uL (0.11-0.59); #Neutrophils 11.2 thou/uL (1.40-6.50); %Basophils 0.6 % (0.0-1.0); %Lymphocytes 11.9 % (21.0-51.0); %Monocytes 8.1 % (0.0-10.0); %Neutrophils 78.4 % (42.0-75.0); Mean Corpuscular HGB CONC 29.7 g/dL (32.0-36.0); Mean Corpuscular Hemoglobin 27.1 pg (27.0-31.0); Mean Corpuscular Volume 91.1 fl (80.0-94.0); Mean Platelet Volume 8.4 fL (7.4-10.4); Platelet Count 180 thou/uL (130-400); RBC Distribution Width 15.6 % (11.5-14.5); Red Blood Cell (RBC) Count 4.79 mill/uL (4.70-6.10); White Blood Cell (WBC) Count 14.3 thou/uL (4.8-10.8)
[2018-01-14 02:31] LABS: Actual Bicarbonate (HCO3a) 38.3 mEq/L (22-26); CO2 Tension 94.7 mmHg (35.0-45.0); pH, Arterial 7.23 (7.35-7.45)
[2018-01-14 02:32] LABS: Base Excess (BEa) 7.4 mEq/L (0 (+/-) 2.5); Hematocrit-ABG 44.7 % (42.0-52.0); Hemoglobin (Hb) 12.5 g/dL (14.0-18.0)
[2018-01-14 02:33] LABS: ALV-art Gradient 304.225 (0-20); Analyzer IN Cardio ER; Calcium, Ionized 1.2 mmol/L (1.12-1.30); Puncture Site RRA
[2018-01-14] MEDS ORDERED: Furosemide 20 MG/2 ML VIAL ONE (02:46)
[2018-01-14 02:47] LABS: ALT (SGPT) 20 U/L (8-55); AST (SGOT) 18 U/L (5-34); Albumin 3.8 g/dL (3.4-4.8); Alkaline Phosphatase 65 U/L (40-150); Anion Gap 12 mmol/L (10-20); BUN (Urea Nitrogen) 25 mg/dL (8.4-25.7); Bilirubin, Total 0.4 mg/dL (0.2-1.2); Calc. Creatinine Clearance 0 mL/min (70-130); Carbon Dioxide 36 mmol/L (23-31); Chloride 99 mmol/L (98-107); Estimated GFR-MDRD 90; Globulin 3.3 g/dL (2.4-3.5); Glucose 115 mg/dL (80-115); Potassium 4.8 mmol/L (3.5-5.1); Protein, Total 7.1 g/dL (5.8-8.1); Sodium 142 mmol/L (136-145)
[2018-01-14 02:50] LABS: CKMB 4.5 ng/mL (0-6.6)
[2018-01-14] MEDS ORDERED: Ondansetron ODT 4 MG TAB SL PRN (05:44)
[2018-01-14] MEDS ORDERED: Acetaminophen 325 MG TAB PO PRN (05:44)
[2018-01-14] MEDS ORDERED: Ondansetron HCl/PF 4 MG/2 ML Vial IVP PRN (05:44)
[2018-01-14] MEDS ORDERED: Albuterol Sulfate 2.5 mg/3 ml Neb NEB PRN (06:01)
[2018-01-14] MEDS ORDERED: HYDROcodone/Acetaminophen 5/325 mg Tablet PO PRN (06:01)
[2018-01-14 06:02] LABS: Actual Bicarbonate (HCO3a) 41.7 mEq/L (22-26); Base Excess (BEa) 10.7 mEq/L (0 (+/-) 2.5); CO2 Tension 96.8 mmHg (35.0-45.0); Hematocrit-ABG 46.6 % (42.0-52.0); Hemoglobin (Hb) 12.8 g/dL (14.0-18.0); pH, Arterial 7.25 (7.35-7.45)
[2018-01-14 06:03] LABS: Puncture Site LRA
[2018-01-14 06:13] VITALS: BMI 34.9
[2018-01-14] MEDS ORDERED: Budesonide 0.5 MG/2 ML NEB NEB SCH (06:30)
[2018-01-14] MEDS: Furosemide 20 MG/2 ML VIAL SLOW IVP SCH ×2 (06:41→15:33)
--- NOTE | 2018-01-14 06:58 | HP ---
DATE OF ADMISSION: 01/14/2018 CHIEF COMPLAINT: Shortness of breath. HISTORY OF PRESENT ILLNESS: This is a 63-year-old morbidly obese white male with a known history of congestive heart failure with chronic respiratory failure on ventilator in the BiPAP mode. The patie nt is a longterm resident, presented with worsening shortness of breath and unable to keep his sa turations up. He was brought to the ER for further evaluation. Patient has a known history of lung cancer with a chronic lung changes with history of congestive heart failure. He was noted to have wo rsening shortness of breath, so when he arrived in the ER, he had an ABG done, which showed a pCO2 of 94 and the sats in the 80s. So the ER physician called Dr. Florence and discussed the case with him and he suggested the patient to be on the humidified O2 on the BiPAP mode and to continue on the vent ilation. He did not suggest the patient to be on any antibiotics as he always had this chronic shannon es of his lungs and the recent chest x-ray did not show any difference from the previous x-rays. The patient did have elevated white count, but the patient was also on oral steroids. The patient denie s having any abdominal pain, no diarrhea, no constipation. He was barely awake when he came in to th e ER. The patient was moved to the ICU, because of being on the BiPAP and on the ventilation. The p atient became too drowsy and was difficult to awake, so called the patient's mother and discussed abo ut the code status and she said the patient does not want to be resuscitated and that is what he told last time. PAST MEDICAL HISTORY: Morbid obesity with tracheostomy, chronic respiratory failure on trach collar, obstructive sleep apnea, history of left lower lobe lung mass, history of colon cancer with suspecte d metastasis, hypertension, dyslipidemia, history of pulmonary embolism, GERD, depression. PAST SURGICAL HISTORY: History of femoral artery laceration, status post repair and exploratory lapa rotomy. FAMILY HISTORY: The patient is adopted and does not have a family history. SOCIAL HISTORY: Quit smoking 3 years back. No history of alcohol, no history of illicit drug use. He is a resident of [facility]. ALLERGIES: No known drug allergies. HOME MEDICATIONS: 1. DuoNeb. 2. Aspirin. 3. Budesonide inhalation twice daily. 4. Claritin 10 mg daily. 5. Coreg 3.125 mg twice daily. 6. Colace 100 mg twice daily. 7. Flonase nasal spray. 8. MiraLax 17 grams. 9. Mucinex 600 mg 4 times a day. 10. Neurontin 100 mg 3 times a day. 11. Protonix 40 mg daily. 12. Spiriva 18 mcg daily. 13. Trazodone 50 mg p.o. twice daily. REVIEW OF SYSTEMS: Could not be documented as the patient has poor mental status. No other family m embers are available at the bedside. PHYSICAL EXAMINATION: VITAL SIGNS: Blood pressure is 138/88, heart rate is 88, respiratory rate is 20, saturations 90% on 40% FiO2 on the BiPAP. HEENT: Atraumatic, normocephalic. PERRLA. Extraocular movements were intact. Oral mucosa pink and moist. Patient has a trach collar. CARDIOVASCULAR: S1, S2 normal. No murmurs, rubs or gallops. LUNGS: Bilateral air entry was reduced with increased crackles and reduced air entry with wheezing d iffusely was noted. ABDOMEN: Distended, nontender, no guarding, no rebound tenderness. MUSCULOSKELETAL: No calf tenderness. Pedal edema 3+. No joint tenderness, no joint swelling. SKIN: No cyanosis, no erythema, no rash, no pallor. CENTRAL NERVOUS SYSTEM: Cranial nerve examination could not be done as the patient is not able to follow any commands. NECK: JVD was noted. No thyromegaly. PSYCHIATRIC: No signs of agitation were noted. LABORATORY DATA: WBC 14.3, hemoglobin is 13.0, hematocrit is 43.6, platelets 180. Sodium 142, potas sium 4.8, chloride is 99, BUN is 25. Blood gas showed pH of 7.2, pCO2 of 94.7, pO2 of 73.0. ASSESSMENT: 1. Acute hypoxic hypercapnic respiratory failure. 2. Acute chronic obstructive pulmonary disease exacerbation. 3. Acute congestive heart failure, diastolic dysfunction. 4. Leukocytosis. 5. Morbid obesity. 6. History of metastatic lung cancer. PLAN: 1. Continue to monitor this patient on the trach vent at this time, per Dr. Florence, we will follow the recommendations. We will follow the mechanical ventilation recommendations. 2. The patient has a persistent infiltrate in both the lungs at this time. We will start the patien t on empiric antibiotic. 3. Patient has a history of congestive heart failure. We will restart the patient on IV Lasix. 4. The patient has history of chronic obstructive pulmonary disease. We will continue the patient o n nebulizer treatments, DuoNeb and albuterol nebs. We will start the patient on Solu-Medrol 40 mg IV q.8 hours. 5. Hypertension, well controlled. We will restart the patient's home medications and currently destin t the blood pressures with hydralazine 10 mg q.6 hours for systolic more than 160. 6. The patient's prognosis is poor. I discussed with the patient's mother and advised to come to [facility] ICU as the patient's condition is very guarded at this time. 7. Deep venous thrombosis prophylaxis with Lovenox 40 mg subcutaneous daily. I have spent 75 minutes with this patient. Of this, one hour is the critical care time.
[2018-01-14] MEDS ORDERED: FLU VACC QS2017-18 36 mo. & older 0.5 ML SYRINGE IM ONE (07:00)
--- NOTE | 2018-01-14 08:35 | RAD ---
RADIOGRAPH CHEST 1 VIEW: Date: 01-14-18 Time: 2:06 a.m. HISTORY: 63-year-old male with dyspnea. COMPARISON: 12-06-17 FINDINGS: Current study is lordotically positioned. Tracheostomy tube remains. Significant widening of the card iomediastinal silhouette. Diffuse pulmonary vascular engorgement. Airspace densities at the right med ial lung base, silhouetting the right cardiac border; and throughout the left lower lung zone, silhou etting the left cardiac border. No major interval change. IMPRESSION: 1. Bibasilar airspace densities. 2. Cardiomegaly and pulmonary vascular congestion. 3. Tracheostomy tube. 4. Finings are very similar to 12-06-17. TONG [] POS: JOHNATHAN
[2018-01-14] MEDS ORDERED: Spiriva 18 MCG CAP (Box of 5 Caps) INH SCH (09:00)
[2018-01-14] MEDS ORDERED: Aspirin 81 mg Enteric Coated Tablet PO SCH (09:00)
[2018-01-14] MEDS ORDERED: Enoxaparin Sodium 40 MG/0.4 ML SYRINGE SC SCH (09:00)
[2018-01-14] MEDS ORDERED: Citalopram 20 MG TAB PO SCH (09:00)
[2018-01-14] MEDS ORDERED: Carvedilol 3.125 MG TAB PO SCH (09:00)
[2018-01-14] MEDS: Morphine 4 MG/ML VIAL SLOW IVP PRN ×4 (10:00→21:56)
[2018-01-14] MEDS: Gabapentin 300 MG CAP PO SCH ×3 (11:10→21:56)
[2018-01-14] MEDS: Docusate 100 MG CAP PO SCH ×2 (11:10→21:55)
--- NOTE | 2018-01-14 12:04 | CON ---
DATE OF CONSULTATION: 01/14/2018 SERVICE: Pulmonary Medicine. REASON FOR CONSULTATION: Respiratory failure. HISTORY OF PRESENT ILLNESS: The patient is a 63-year-old white male with end-stage COPD. He has a t racheostomy in place. He came into the hospital once again with increasing difficulty breathing and altered mentation. Initially, BiPAP mask was placed on his face. His speaking valve was left in seferino ce on his tracheostomy. He had a 6-0 fenestrated cuffless trach. He was unable to hold these volume s. He became a little bit increasingly disoriented after initial improvement in symptoms. Ultimatel y, he decompensated. We had to remove his tracheostomy and place a cuffed tracheostomy. At that poi nt, he got better volumes. We were able to maintain more comfortable respirations. He perked up a l ittle bit and became a lot less labored with his breathing. He currently cannot provide any addition al elements of his history today. PAST MEDICAL HISTORY: 1. Chronic obstructive pulmonary disease. 2. Chronic hypoxic and hypercapnic respiratory failure. 3. Morbid obesity. 4. Obese hypoventilation syndrome. 5. Obstructive sleep apnea status post tracheostomy. 6. History of lung mass. 7. History of colon cancer. 8. Hypertension. 9. Dyslipidemia. 10. Gastroesophageal reflux disease. 11. Major depressive disorder. 12. Pulmonary embolism. PAST SURGICAL HISTORY: 1. Exploratory laparotomy. 2. Repair of femoral artery laceration. FAMILY HISTORY: The patient is adopted. Noncontributory. SOCIAL HISTORY: Negative for alcohol, tobacco or illicit drug use currently. He is living in [facility] in Nursing facility. He quit smoking roughly 3 years ago. He has no exposure to chemicals, dust asb estos or tuberculosis so far as we are aware of. ALLERGIES: No known drug allergies. MEDICATIONS: List of his inpatient medications were reviewed. Multiple updates were made once again . REVIEW OF SYSTEMS: General, head, ears, eyes, nose, throat, cardiovascular, respiratory, GI, , mus culoskeletal, neurologic and skin is negative except as mentioned in the HPI. PHYSICAL EXAMINATION: VITAL SIGNS: Afebrile, pulse 84, blood pressure 127/78, respirations 23, saturation 84% on 37% FiO2 and a PEEP of 7. HEENT: Normocephalic, atraumatic. Sclerae are white, conjunctivae pink. Oral and nasal mucosa is m oist without lesions. LUNGS: Decreased air entry, but not terrible for Mr. Haskins. He has got inspiratory and expiratory wheezing. He also has some dependent crackles. I do not appreciate rhonchi. HEART: Normal rate and regular. ABDOMEN: Soft. Distended. Bowel sounds are present. No rebound or guarding. MUSCULOSKELETAL: No cyanosis or clubbing. There is trace 1+ pitting in the bilateral lower extremit ies. NEUROLOGIC: Grossly nonfocal. LABORATORY DATA: WBC 14.3, hemoglobin 13.0, and platelets 180,000. A pH 7.25, pCO2 96, and pO2 53. At that time, he was on BiPAP. Basic metabolic profile and liver function studies are unremarkable. BNP is elevated at 195. Troponin 0.01. IMAGING: Chest x-ray demonstrates chronic changes without acute consolidating disease. There is pul monary vascular congestion present. Retrocardiac infiltrate cannot be excluded. ASSESSMENT: 1. Acute on chronic hypoxic and hypercapnic respiratory failure. 2. Chronic obstructive pulmonary disease with acute exacerbation. 3. Acute on chronic diastolic heart failure. PLAN: We will diurese the patient with a dose of Lasix. I have taken his tracheostomy and put in a cuffed 6-0 nonfenestrated tracheostomy in order to provide better ventilation. The patient is tellin g me that he does not want further episodes of resuscitation. As such, Palliative Care consultation will be placed to see whether or not it is appropriate to transition over comfort care only. Either way, Dr. Bellamy will be notified. The patient has returned to the hospital and we will assume coverag e in the morning. CRITICAL CARE TIME: 45 minutes.
[2018-01-14 15:28] VITALS: BP 143/77
[2018-01-14] MEDS: Lorazepam 2 MG/ML VIAL SLOW IVP PRN ×2 (15:32→21:57)
[2018-01-14 21:46] VITALS: TEMP 98.1
== END 2018-01-14 21:40 | disposition hospice, inpatient (51) | DRG 291 ==
LOC: ERS 01:44 → CCU 05:23
PROVIDERS: ADMIT Family Medicine; ATTEND Family Medicine
DX: I11.0 Hypertensive heart disease with heart failure (principal); J96.21 Acute and chronic respiratory failure with hypoxia; C34.32 Malignant neoplasm of lower lobe, left bronchus or lung; J44.1 Chronic obstructive pulmonary disease with (acute) exacerbation; E66.2 Morbid (severe) obesity with alveolar hypoventilation; I50.33 Acute on chronic diastolic (congestive) heart failure; Z68.35 Body mass index [BMI] 35.0-35.9, adult; Z87.891 Personal history of nicotine dependence; Z79.52 Long term (current) use of systemic steroids; Z66 Do not resuscitate; Z93.0 Tracheostomy status; E78.5 Hyperlipidemia, unspecified; K21.9 Gastro-esophageal reflux disease without esophagitis; F32.9 Major depressive disorder, single episode, unspecified; Z51.5 Encounter for palliative care
CPT/HCPCS: 71045; 80053; 82553; 82805; 83880; 84484; 85025; 87040; 93005; 94002; 94640; 94644; 94660; 96374; J1650; J1940; J1956; J2060; J2270; J2920; J7620; J7626